=== PATIENT | male | born 1960 | race African-American/Black ===

== ENCOUNTER 2017-04-02 14:33 | Emergency (ER) | payer MEDICARE, MEDICAID | END 2017-04-02 17:34 | disposition home or self-care (01) | LOC: ERS 14:33 | DX: I10 Essential (primary) hypertension (principal); K21.9 Gastro-esophageal reflux disease without esophagitis; I95.1 Orthostatic hypotension; E11.9 Type 2 diabetes mellitus without complications; F32.9 Major depressive disorder, single episode, unspecified | CPT/HCPCS: 99284 ==

== ENCOUNTER 2017-05-07 16:35 | Observation (INO) | payer MEDICARE, MEDICAID ==
[~2017-05-07 16:35] MED LIST: ISOVUE-370 76%-LOCM 1 ML ONE; Iopamidol 370 76% 50 ML VIAL FS ONE
[2017-05-07 17:55] LABS: #Eosinphils 0.1 thou/uL (0.0-0.7); #Lymphocytes 1.6 thou/uL (1.20-3.40); #Monocytes 0.8 thou/uL (0.11-0.59); %Basophils 0.2 % (0.0-1.0); %Eosinophils 1.4 % (0.0-10.0); %Lymphocytes 29.1 % (21.0-51.0); %Monocytes 14.6 % (0.0-10.0); %Neutrophils 54.7 % (42.0-75.0); Hemoglobin 14.7 g/dL (14.0-18.0); Mean Corpuscular HGB CONC 34.1 g/dL (32.0-36.0); Mean Corpuscular Volume 90.9 fl (80.0-94.0); Mean Platelet Volume 6.7 fL (7.4-10.4); Platelet Count 201 thou/uL (130-400); RBC Distribution Width 12.4 % (11.5-14.5); Red Blood Cell (RBC) Count 4.75 mill/uL (4.70-6.10); White Blood Cell (WBC) Count 5.5 thou/uL (4.8-10.8)
[2017-05-07 17:58] LABS: Bilirubin Negative (Negative); Blood, Urine Negative (Negative); Clarity CLOUDY (Clear); Glucose, Urine (Dipstick) Negative (Negative); Leukocyte Large (Negative); Nitrite Positive (Negative); Protein, Urine (Dipstick) 30 mg/dL (Neg-Trace); Specific Gravity, Urine 1.017 (1.002-1.036)
[2017-05-07 18:03] LABS: Bacteria/HPF 4+ HPF (None Seen); Hyaline Casts/LPF 7-10 HYALINE CAST LPF (0-3 Hyaline); Pathc Cast-AUWi Flag 0.69 (0-2.49); RBC/HPF None Seen HPF (0-3); Squamous Epithelial None Seen HPF (0-3)
[2017-05-07 18:04] LABS: Yeast-AUWi Flag 82.6 (0-25.0)
[2017-05-07 18:13] LABS: Crystals/HPF None Seen HPF (Negative); Yeast-All Forms None Seen HPF (None Seen)
[2017-05-07 18:16] LABS: ALT (SGPT) 36 U/L (8-55); AST (SGOT) 34 U/L (5-34); Albumin 3.7 g/dL (3.5-5.0); Alkaline Phosphatase 42 U/L (40-150); Anion Gap 16 mmol/L (10-20); BUN (Urea Nitrogen) 25 mg/dL (8.4-25.7); Bilirubin, Total 0.7 mg/dL (0.2-1.2); Calc. Creatinine Clearance 0 mL/min (70-130); Calcium 9.4 mg/dL (7.8-10.44); Carbon Dioxide 17 mmol/L (22-29); Chloride 104 mmol/L (98-107); Estimated GFR-MDRD 64; Globulin 4.5 g/dL (2.4-3.5); Lipase 28 U/L (8-78); Protein, Total 8.2 g/dL (6.0-8.3); Sodium 133 mmol/L (136-145)
[2017-05-07 18:21] LABS: Glucose 59 mg/dL (70-105)
[2017-05-07] MEDS ORDERED: Dextrose 50% Abboject 50 ML SYRINGE ONE ×2 (18:33→18:34)
--- NOTE | 2017-05-07 19:04 | CT ---
CT ABDOMEN AND PELVIS WITH IV CONTRAST 05/07/17 HISTORY: Abdominal pain. COMPARISON: 02/06/16. FINDINGS: Atelectasis is present at the lung bases. Multiple heterogeneous low density nodules are now evident throughout the nonenlarged spleen. Small cysts are present within the kidneys. Enlarged lymph nodes w ithin the upper posterior abdomen are primarily retrocrural. They have enlarged slightly, now measuri ng up to 1.8 cm. Suprapubic catheter decompresses the urinary bladder. Colon is distended with gas an d stool up to 10.5 cm transverse diameter. Chronic destructive changes of the hips are stable. IMPRESSION: 1. Fecal impaction. 2. Given the slight enlargement of the retrocrural lymph nodes and the appearance of heterogeneo us low density lesions within the spleen, lymphomatous neoplasm must be considered. Please consider H em/Onc evaluation. POS: [facility]
[2017-05-07] MEDS ORDERED: Ondansetron ODT 4 MG TAB PO PRN (22:57)
[2017-05-07] MEDS ORDERED: hydrALAZINE 20 MG/ML VIAL SLOW IVP PRN (22:57)
[2017-05-07] MEDS ORDERED: Bisacodyl 10 MG SUPP PR PRN (22:57)
[2017-05-07] MEDS ORDERED: Senokot 8.6 MG TAB PO PRN (22:57)
[2017-05-07] MEDS ORDERED: Acetaminophen 500 MG TAB PO PRN (22:57)
[2017-05-07] MEDS ORDERED: cloNIDine 0.1 MG TAB PO PRN (22:57)
[2017-05-07] MEDS ORDERED: Ondansetron HCl/PF 4 MG/2 ML Vial IVP PRN (22:57)
[2017-05-07] MEDS ORDERED: Magnesium Citrate 300 ML BOT PO SCH (23:00)
[2017-05-07] MEDS ORDERED: HumaLOG 300 UNITS/3 ML VIAL SC PRN ×2 (23:41)
[2017-05-07] MEDS ORDERED: Dextrose 5% in Water 1,000 ML IV PRN (23:41)
[2017-05-07] MEDS ORDERED: Dextrose 50% Abboject 50 ML SYRINGE SLOW IVP PRN (23:41)
[2017-05-07] MEDS: Sodium Chloride 0.9% 1,000 ML IV SCH (23:52)
[2017-05-07] MEDS ORDERED: cefTRIAXone\\ROCEPHIN 2 GM in Sodium Chloride 0.9% 100 ML IVPB SCH (23:59)
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
[2017-05-08 03:30] VITALS: BMI 21.4
[2017-05-08] MEDS ORDERED: Docusate 100 MG CAP PO SCH (09:00)
[2017-05-08] MEDS ORDERED: Famotidine 20 MG TAB PO SCH (09:00)
[2017-05-08] MEDS: Sodium Chloride 0.9% 1,000 ML IV SCH (09:21)
--- NOTE | 2017-05-08 13:02 | PDOC.PN ---
- Subjective Encounter Start Date: 05/08/17 Encounter Start Time: 13:00 Mr. Del Toro says he is less bloated today. He is reported to have had 2 large bowel movements early this morning. He now complains of cough and congestion which started this morning. - Objective Resuscitation Status: Resuscitation Status FULL:Full Resuscitation MAR Reviewed: Yes Vital Signs & Weight: Vital Signs (12 hours) Temp Pulse Resp BP Pulse Ox 05/08/17 11:59 98.1 F 88 18 125/82 100 05/08/17 07:52 97.8 F 87 18 05/08/17 07:34 97.8 F 87 18 111/76 91 L 05/08/17 04:00 98.5 F 77 18 99/65 99 Weight Weight 157 lb 13.616 oz I&O: 05/07/17 05/08/17 05/09/17 06:59 06:59 06:59 Intake Total 1261 Output Total 300 Balance 961 Result Diagrams: 05/07/17 17:45 05/07/17 17:45 Additional Labs: Accuchecks 05/08/17 05/08/17 05/08/17 11:19 04:41 02:13 POC Glucose 101 71 79 05/08/17 05/08/17 01:01 00:09 POC Glucose 73 66 L Phys Exam - Physical Examination HEENT: PERRLA Respiratory: no wheezing + rhonchi bilaterally Cardiovascular: RRR, no significant murmur, no rub Gastrointestinal: soft, non-tender, positive bowel sounds mildly distended Musculoskeletal: no edema Dx/Plan (1) Constipation Code(s): K59.00 - CONSTIPATION, UNSPECIFIED Status: Acute (2) Chronic incomplete flaccid quadriplegia Code(s): G82.50 - QUADRIPLEGIA, UNSPECIFIED Status: Acute (3) UTI (lower urinary tract infection) Code(s): N39.0 - URINARY TRACT INFECTION, SITE NOT SPECIFIED Status: Acute (4) Diet-controlled diabetes mellitus Code(s): E11.9 - TYPE 2 DIABETES MELLITUS WITHOUT COMPLICATIONS Status: Chronic (5) Orthostatic hypotension Code(s): I95.1 - ORTHOSTATIC HYPOTENSION Status: Chronic - Plan * Constipation- improved, will continue a stool softener daily, and consider Miralax daily as well upon discharge * Chest Congestion- this may be due to poor control of secretion from his quadraplegia- the phlem is clear- will add mucinex, and suction as needed * DM-blood glucose is stable * UTI- this may be due to colonization from chronic indwelling meza. He does not have fever, and the urine is clear, and without sediment * He likely can be discharged back to the custodial later this evening.
[2017-05-08] MEDS ORDERED: guaiFENesin/DM ER PO SCH ×2 (13:15→21:00)
[2017-05-08] MEDS ORDERED: Polyethylene Glycol 3350 17 GM Packet PO SCH (13:15)
[2017-05-08 14:24] LABS: Hemoglobin 13.4 g/dL (14.0-18.0); Mean Corpuscular HGB CONC 33.3 g/dL (32.0-36.0); Mean Corpuscular Hemoglobin 29.9 pg (27.0-31.0); Mean Corpuscular Volume 89.9 fl (80.0-94.0); Mean Platelet Volume 7.1 fL (7.4-10.4); Platelet Count 147 thou/uL (130-400); RBC Distribution Width 12.4 % (11.5-14.5); Red Blood Cell (RBC) Count 4.48 mill/uL (4.70-6.10)
[2017-05-08 14:47] LABS: ALT (SGPT) 36 U/L (8-55); AST (SGOT) 33 U/L (5-34); Albumin 3.5 g/dL (3.5-5.0); Alkaline Phosphatase 38 U/L (40-150); Anion Gap 15 mmol/L (10-20); BUN (Urea Nitrogen) 22 mg/dL (8.4-25.7); Bilirubin, Total 0.5 mg/dL (0.2-1.2); Calc. Creatinine Clearance 80 mL/min (70-130); Calcium 8.8 mg/dL (7.8-10.44); Carbon Dioxide 16 mmol/L (22-29); Chloride 106 mmol/L (98-107); Estimated GFR-MDRD 87; Globulin 4.1 g/dL (2.4-3.5); Glucose 75 mg/dL (70-105); Protein, Total 7.6 g/dL (6.0-8.3); Sodium 133 mmol/L (136-145)
[2017-05-08 14:51] LABS: Lymphocytes 13 % (21-51); MDiff Complete? YES; Monocytes 6 % (0-10); Neutrophil 81 % (42-75); PLT Morphology Comment Appears Adequate
[2017-05-08 16:40] VITALS: BP 107/78; TEMP 98.3
--- NOTE | 2017-05-08 23:32 | DIS ---
DATE OF ADMISSION: 05/07/2017 DATE OF DISCHARGE: 05/08/2017 PRIMARY CARE PHYSICIAN: Amirah Forbes MD DISCHARGE DISPOSITION: Back to the [facility]. DISCHARGE DIAGNOSES: 1. Fecal impaction. 2. Constipation secondary to #1. 3. Quadriplegia with chronic bedbound status. 4. Neurogenic bladder with chronic suprapubic catheter. 5. Neurogenic bowel. 6. Diabetes mellitus type 2, which is diet managed. 7. History of orthostatic hypotension. 8. Seizure disorder. 9. Gastroesophageal reflux disease. PAST SURGICAL HISTORY: He has had C-spine fusion for stabilization and also has had a colonoscopy. DISCHARGE MEDICATIONS: MiraLax 17 grams daily was added to his regimen. He is to continue simethico ne 80 mg twice a day as needed, senna plus 1 tablet twice a day, scopolamine patch every 3 days, Marquita Lax 17 grams daily, phenytoin 100 mg twice a day, Zofran 4 mg q.6 hours as needed, multivitamin once a day, ProAmatine 5 mg twice a day, lactulose 30 grams twice a day as needed, DuoNeb q.4 hours as nee ded, Mucinex DM one tablet twice a day, Colace 100 mg twice daily, bisacodyl 10 mg per rectum twice a day as needed, baclofen 5 mg t.i.d., artificial tears p.r.n., and Tylenol 325 mg q.4 as needed. PROCEDURES DONE DURING ADMISSION: The patient had a CT scan of the abdomen and pelvis and the result s demonstrated a fecal impaction. There was some slight enlargement of the retrocrural lymph nodes, given the appearance of heterogeneous low density lesions in the spleen. CODE STATUS: FULL CODE. ALLERGIES: No known drug allergies. HOSPITAL COURSE: Mr. Del Toro is a pleasant 56-year-old gentleman who was sent over from the nursing [facility] due to not having a bowel movement in over 7 days. He was placed in observation and he was given medications to symptomatically relieve the obstipation. This was successful after being given mag c itrate as well as stool softeners and MiraLax. He was noted to have positive nitrites and bacteria i n his urine, but he does have a suprapubic catheter. There was no elevation in his white blood cell count nor was there any fever. The urine was clear and free of sediment and I suspect this is possib le colonization and will hold off on treatment at this time. Also was noted on the CT scan that ther e was some nonspecific retrocrural adenopathy. In reviewing previous CAT scans and his electronic re cords, it appears that this finding has been present and unchanged since 2013. Therefore, we will co flor to monitor this. The patient is being transitioned back to the [facility] today.
[2017-05-09] MEDS ORDERED: Polyethylene Glycol 3350 17 GM Packet PO SCH (09:00)
== END 2017-05-08 17:39 ==
LOC: ERS 16:35 → T4-A 22:11
PROVIDERS: ADMIT Internal Medicine; ATTEND Internal Medicine
DX: K56.41 Fecal impaction (principal); G82.50 Quadriplegia, unspecified; N31.2 Flaccid neuropathic bladder, not elsewhere classified; E11.9 Type 2 diabetes mellitus without complications; I95.1 Orthostatic hypotension; N39.0 Urinary tract infection, site not specified; G40.909 Epilepsy, unspecified, not intractable, without status epilepticus; K21.9 Gastro-esophageal reflux disease without esophagitis; Z98.1 Arthrodesis status; Z98.890 Other specified postprocedural states
CPT/HCPCS: 74177; 80053 ×2; 82962 ×2; 83690; 85007; 85025; 85027; 96361 ×2; 96365; 96375; 99285; G0378; 36415; 36416; 81003; 81015; 96374; J0696; J7050

== ENCOUNTER 2017-09-11 00:55 | Inpatient (IN) | payer MEDICARE, MEDICAID ==
[2017-09-11 02:26] LABS: Bilirubin Negative (Negative); Blood, Urine Trace (Negative); Glucose, Urine (Dipstick) Negative (Negative); Leukocyte Large (Negative); Nitrite Negative (Negative); Protein, Urine (Dipstick) 100 mg/dL (Neg-Trace); pH, Urine 8.5 (5.0-9.0)
[2017-09-11 02:28] LABS: Bacteria/HPF 4+ HPF (None Seen); Clarity Cloudy (Clear)
[2017-09-11 02:29] LABS: Pathc Cast-AUWi Flag 30.41 (0-2.49); Yeast-AUWi Flag 540.4 (0-25.0)
[2017-09-11 02:30] LABS: Hyaline Casts/LPF 0-3 HYALINE CAST LPF (0-3 Hyaline); Manual Microscopic Reviewed? No Path Casts Seen; Yeast-All Forms None Seen HPF (None Seen)
[2017-09-11 02:34] LABS: Crystals/HPF 3+ TRIPLE PHOS HPF (Negative)
[2017-09-11 03:02] LABS: Hemoglobin 13.8 g/dL (14.0-18.0); Mean Corpuscular HGB CONC 34.5 g/dL (32.0-36.0); Mean Corpuscular Hemoglobin 31.3 pg (27.0-31.0); Mean Corpuscular Volume 90.7 fL (78.0-98.0); RBC Distribution Width 12.8 % (11.5-14.5); Red Blood Cell (RBC) Count 4.42 mill/uL (4.70-6.10)
[2017-09-11 03:20] LABS: Band 7 % (5-11); Eosinophils 4 % (0-10); Lymphocytes 24 % (21-51); MDiff Complete? YES; Mean Platelet Volume 7.2 fL (7.4-10.4); Monocytes 13 % (0-10); Neutrophil 52 % (42-75); PLT Morphology Comment Appears Decreased; Platelet Count 107 thou/uL (130-400)
[2017-09-11 03:22] LABS: ALT (SGPT) 56 U/L (8-55); AST (SGOT) 35 U/L (5-34); Albumin 3.8 g/dL (3.5-5.0); Alkaline Phosphatase 49 U/L (40-150); Anion Gap 13 mmol/L (10-20); BUN (Urea Nitrogen) 22 mg/dL (8.4-25.7); Bilirubin, Total 0.6 mg/dL (0.2-1.2); CK (CPK) 172 U/L (30-200); Calc. Creatinine Clearance 0 mL/min (70-130); Calcium 9.7 mg/dL (7.8-10.44); Carbon Dioxide 26 mmol/L (22-29); Chloride 103 mmol/L (98-107); Estimated GFR-MDRD Greater than 90; Globulin 4.2 g/dL (2.4-3.5); Glucose 89 mg/dL (70-105); Lipase 20 U/L (8-78); Potassium 3.6 mmol/L (3.5-5.1); Sodium 138 mmol/L (136-145)
[2017-09-11 03:24] LABS: CKMB 3.8 ng/mL (0-6.6); Troponin I 0.013 ng/mL (< 0.028)
[2017-09-11] MEDS ORDERED: Ondansetron HCl/PF 4 MG/2 ML Vial IVP PRN (04:49)
[2017-09-11] MEDS ORDERED: Artificial Tears 18 DROP/0.9 ML EA EYE PRN (04:52)
[2017-09-11] MEDS ORDERED: Simethicone Chewable 80 MG TAB PO PRN (04:52)
[2017-09-11] MEDS ORDERED: Acetaminophen 325 MG TAB PO PRN (04:52)
[2017-09-11] MEDS ORDERED: Norepinephrine 8 MG/0.9% NS 250 ML ONE (05:38)
[2017-09-11] MEDS ORDERED: Ondansetron ODT 4 MG TAB PO PRN (08:01)
[2017-09-11] MEDS ORDERED: Famotidine/PF 20 mg/2ml Vial SLOW IVP PRN (08:01)
[2017-09-11] MEDS ORDERED: Bisacodyl 10 MG SUPP PR PRN (08:01)
[2017-09-11] MEDS ORDERED: Sodium Chloride 0.65% Nasal 44 ML BOT EA NARE PRN (08:01)
[2017-09-11] MEDS ORDERED: Eucerin (Mineral Oil/Petrolatum,White) 30 gm Jar TOP PRN (08:01)
[2017-09-11] MEDS ORDERED: Mag-Al 1200 mg/1200 mg/30 ML UDCUP PO PRN (08:01)
[2017-09-11] MEDS ORDERED: Fleet Enema 133 ML BOT PR PRN (08:01)
[2017-09-11] MEDS ORDERED: Chloraseptic Spray 180 ml Bottle PO PRN (08:01)
[2017-09-11] MEDS ORDERED: Milk Of Magnesia 30 ML UDCUP PO PRN (08:01)
[2017-09-11] MEDS ORDERED: Diabetic Tussin 200 MG/10 ML UDCUP PO PRN (08:01)
--- NOTE | 2017-09-11 08:32 | CT ---
CT ARTERIOGRAM CHEST WITH IV CONTRAST AND 3D MIP IMAGING: HISTORY: Dyspnea. Hypoxia. FINDINGS: There is good contrast opacification of the pulmonary arteries and thoracic aorta with normal branchi ng of the great vessels. There are innumerable ill-defined nodular opacities throughout each lung pr imarily involving the upper lobes, each less than 1 cm greatest diameter. Many have a subtle low-den sity/gaseous centered. Lymph nodes scattered about the mediastinum are upper limits of normal in siz e. Enlarged retrocrural lymph nodes and low-density lesions within the spleen are partially visualiz ed on the inferiormost images and appear similar to the CT abdomen from 05/08/15. IMPRESSION: 1. No CT evidence of pulmonary embolus. 2. Multiple small ill-defined lesions throughout each lung. Based on their appearance, infection wi th septic emboli versus metastases are the primary considerations. The adenopathy and splenic lesion s within the partially visualized upper abdomen appear unchanged from recent CT and result in the haile e differential diagnosis. POS: [facility]
--- NOTE | 2017-09-11 08:49 | RAD ---
PORTABLE CHEST 1 VIEW: HISTORY: Respiratory distress. COMPARISON: Chest radiograph same day. FINDINGS: There are some faint upper lobe peripheral airspace opacities. Cardiac silhouette and mediastinal co ntours are within normal limits. No acute osseous abnormality. IMPRESSION: Upper lobe opacity concern for possible infection. Followup recommended. POS: [facility]
[2017-09-11] MEDS ORDERED: Bisacodyl 10 MG SUPP PR SCH (09:00)
[2017-09-11] MEDS ORDERED: guaiFENesin ER 600 MG TAB PO SCH (09:00)
[2017-09-11] MEDS: Polyethylene Glycol 3350 17 GM Packet PO SCH (09:13)
[2017-09-11] MEDS: Baclofen 10 MG TAB PO SCH ×3 (09:13→21:33)
[2017-09-11] MEDS: Enoxaparin Sodium 40 MG/0.4 ML SYRINGE SC SCH (09:13)
[2017-09-11] MEDS: Saccharomyces boulardii 250 MG CAP PO SCH (09:14)
[2017-09-11] MEDS: guaiFENesin ER 600 MG TAB PO SCH ×2 (09:14→21:42)
[2017-09-11] MEDS: MEROPENEM 1 GM/50 ML 1 GM in Premix Bag 1 BAG IVPB SCH ×2 (09:14→17:41)
[2017-09-11] MEDS: Scopolamine 1.5 mg/72 hour Patch TOP SCH (09:42)
[2017-09-11] MEDS: Phenytoin 50 MG Chewable Tablet PO SCH ×2 (09:44→21:42)
[2017-09-11] MEDS: Midodrine HCl 5 MG TAB PO SCH ×2 (09:45→21:34)
[2017-09-11] MEDS ORDERED: ISOVUE-370 76%-LOCM 1 ML ONE (12:08)
[2017-09-11] MEDS: Vancomycin HCl 1.5 GM in Sodium Chloride 0.9% 250 ML 300 ML IVPB SCH (13:01)
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
[2017-09-11] MEDS ORDERED: Sodium Chloride 0.9% 1,000 ML IV SCH (13:30)
[2017-09-11] MEDS ORDERED: Meropenem 1 GM in Sodium Chloride 0.9% 100 ML IVPB SCH (14:00)
--- NOTE | 2017-09-11 19:26 | CON ---
DATE OF CONSULTATION: 09/11/2017 Mr. Del Toro is an unfortunate 56-year-old male, who is quadriplegic. According to the emergency department notes, he presented with shortness of breath of 3 days' duratio n. Chest radiograph showed no clear infiltrates. CT pulmonary angiogram showed multiple small nodules, but no infiltrates, no embolic disease was identified. PAST MEDICAL HISTORY: Remarkable for, 1. Neurogenic bladder with a suprapubic catheter. 2. History of admissions for severe constipation with impaction. 3. History of diabetes. 4. Orthostatic hypotension. 5. History of reflux. 6. History of seizure disorder. 7. History of cervical spine surgery. 8. History of PEG placement. 9. History of tracheostomy, subsequent removal. SOCIAL HISTORY: He is a nonsmoker, nondrinker. ALLERGIES: No drug allergies. REVIEW OF SYSTEMS: Otherwise negative. He says he is feeling a little better. He is on a low-dose Levophed. PHYSICAL EXAMINATION: VITAL SIGNS: Blood pressure 101/66, heart rate 73, respiratory rate 21, oximetry is 100% on nasal ca nnula 3 liters. HEENT: Pupils reactive. Sclerae anicteric. EXTREMITIES: He has 4 extremity muscle wasting as expected. LUNGS: Remarkable for mild rhonchi bilaterally. HEART: Regular rhythm. ABDOMEN: Soft and distended. LABORATORY DATA: White count 4, hemoglobin 13.8, platelets 107,000. Sodium 138, potassium 3.6, chlo ride 103, bicarbonate 26, BUN 22, creatinine 0.8. D-dimer was elevated, so CT angiogram was done, di d not show any evidence of thromboembolic disease. IMPRESSION: 1. Bronchitis and retained secretions. 2. Deconditioning and muscle weakness. 3. Intravascular volume contraction. Microbiology has been reviewed. No positive blood cultures so far. He has a suprapubic catheter and it is told it is not working. His bladder was scanned when I saw barrett salazar and he had 350 mL of urine in his bladder. So, he probably needs more volume. I have ordered anot her liter of saline. Hopefully, we can deescalate antimicrobial therapy quickly. I would order a chest radiograph in the morning. Wait for his blood cultures to come back before simplifying antibiotics. He appears to be medically stable at this time. Critical care time, 30 minutes.
--- NOTE | 2017-09-11 19:37 | CON ---
DATE OF CONSULTATION: 09/11/2017 CONSULTING PHYSICIAN: Dr. Perez. CONSULTED PHYSICIAN: Cholo Curtis M.D. REASON FOR CONSULTATION: Urinary retention with clogged SP tube. HISTORY OF PRESENT ILLNESS: Mr. Del Toro is a 56-year-old black male with C2-C3 quadriplegia who is cu rrently admitted to the hospital for pneumonia. He came in with sepsis and is currently getting sign ificantly better. He has an SP tube which was placed years ago at the time of his original injury. He does not appear to have a urologist currently, but states he used to have a urologist in the past, but does not know what happened to them. He has had the SP tube in place for a long time and has it currently managed by his primary care physician overseeing [facility] where he resides. He cu rrently uses an 18-[place] SP tube and it is changed once a month. After being admitted to the hospit al here, it was noted that he had poor urine output from his SP tube. A bladder scan was performed w hich demonstrated 400 mL within the bladder. The patient was reporting a vague discomfort in the abd omen which apparently he still has some sensation to his internal organs. Attempts by the nursing st aff to flush the catheter were unsuccessful. Therefore, I have been consulted for assistance in haney ging the suprapubic catheter. ALLERGIES: None. HOME MEDICATIONS: Midodrine 10 mg p.o. t.i.d., baclofen 10 mg p.o. b.i.d., Keppra 500 mg p.o. b.i.d. and simethicone 1 tab p.o. daily. PAST MEDICAL HISTORY: 1. C2-C3 quadriplegia with bedbound status. 2. Neurogenic bladder with SP tube. 3. Muscular atrophy. 4. Neurogenic bowel. 5. Type 2 diabetes. 6. Chronic constipation. 7. Orthostatic hypotension. 8. Gastroesophageal reflux disease. 9. Seizure disorder. PAST SURGICAL HISTORY: 1. C-spine stabilization surgery. 2. Colonoscopy. 3. PEG tube placement. 4. Tracheostomy. FAMILY HISTORY: Noncontributory. SOCIAL HISTORY: The patient is . He has family members living in [place]. He currently lives in [facility]. He denies tobacco abuse, illicit drug use or alcohol abuse. He is able to actually get around in an electric wheelchair which he does have some manual dexterity to control. REVIEW OF SYSTEMS: A 12-point review of systems was reviewed and otherwise unremarkable other than a chronic cough which is lingering after his pneumonia treatment. PHYSICAL EXAMINATION: VITAL SIGNS: There are no current recorded temperatures for the patient's heart rate 106, respiratio ns 19, oxygen saturation 100%, blood pressure 101/66. GENERAL: Appears slightly uncomfortable, but otherwise communicative and alert. Answers questions a ppropriately. CARDIOVASCULAR: Sinus tachycardia, normal S1 and S2. CHEST: No increased work of breathing. ABDOMEN: Protuberant. Significant suprapubic distention, mild vague discomfort with palpation. Pos itive bowel sounds. There is an SP tube with keloid hypertrophic tissue around the SP tube entry sit e. There is no urine within the catheter. It is currently an 18-[place] catheter. There is no urine in the drainage bag. EXTREMITIES: Demonstrate significant atrophy. GENITOURINARY: The patient is uncircumcised with a nonfocal penis. Testes are bilaterally descended . JACQUI was deferred. PROCEDURE: The patient's 18-[place] SP tube was removed. Immediately upon removal, urine began flowi ng out from the entry site. Betadine was used to prep the skin around the entry site and using steri le technique, a new 20-[place] Vergara catheter was inserted into the bladder with 10 mL of sterile wate r into the balloon. Approximately estimated 250 mL were lost on the bed in approximately an addition al 250 mL came out from the catheter into the drainage bag. The patient tolerated the procedure well . His catheter was secured with a StatLock. ASSESSMENT AND PLAN: A 56-year-old black male with quadriplegia with neurogenic bladder and urinary retention with likely a clogged catheter probably due to either sediment buildup calcification or muc us plug. In any case, his catheter has been changed to a larger size which will decrease the likelih ood of subsequent obstruction. Normally we would perform antibiotic prophylaxis due to significant u rinary retention, but he is already on antibiotics for his pneumonia; therefore, this can just be con tinued. I would recommend that he follow up with me since he does not have a urologist and I will pl an for monitoring his SP tube for problems and issues as well as monitoring for urinary tract infecti ons. He should continue to get his SP tube changed with a 20 [place] Vergara catheter every 30 days and I will plan to see him back in the office in around 2-3 months to ensure that he is doing okay with this new regimen.
[2017-09-11] MEDS: Acetaminophen 325 MG TAB PO PRN (21:35)
[2017-09-12] MEDS: MEROPENEM 1 GM/50 ML 1 GM in Premix Bag 1 BAG IVPB SCH ×3 (00:11→15:57)
[2017-09-12] MEDS: Vancomycin HCl 1.5 GM in Sodium Chloride 0.9% 250 ML 300 ML IVPB SCH (01:11)
[2017-09-12] MEDS: Norepinephrine 8 MG/250 ML BAG IVPB PRN ×2 (02:44→23:46)
[2017-09-12 06:38] LABS: Anion Gap 12 mmol/L (10-20); BUN (Urea Nitrogen) 24 mg/dL (8.4-25.7); Calc. Creatinine Clearance 82 mL/min (70-130); Carbon Dioxide 21 mmol/L (22-29); Chloride 107 mmol/L (98-107); Estimated GFR-MDRD 84; Glucose 136 mg/dL (70-105); Potassium 3.9 mmol/L (3.5-5.1); Sodium 136 mmol/L (136-145)
[2017-09-12 06:52] LABS: #Eosinphils 0.1 thou/uL (0.0-0.7); #Lymphocytes 1.2 thou/uL (1.20-3.40); #Neutrophils 6.2 thou/uL (1.40-6.50); %Basophils 0.3 % (0.0-1.0); %Eosinophils 1.1 % (0.0-10.0); %Lymphocytes 14.2 % (21.0-51.0); %Monocytes 12.2 % (0.0-10.0); %Neutrophils 72.2 % (42.0-75.0); Hemoglobin 10.6 g/dL (14.0-18.0); Mean Corpuscular Hemoglobin 31.5 pg (27.0-31.0); Mean Corpuscular Volume 90.1 fL (78.0-98.0); Mean Platelet Volume 7.3 fL (7.4-10.4); Platelet Count 151 thou/uL (130-400); Red Blood Cell (RBC) Count 3.36 mill/uL (4.70-6.10); White Blood Cell (WBC) Count 8.5 thou/uL (4.8-10.8)
[2017-09-12] MEDS: Saccharomyces boulardii 250 MG CAP PO SCH (09:21)
[2017-09-12] MEDS: Polyethylene Glycol 3350 17 GM Packet PO SCH (09:21)
[2017-09-12] MEDS: Baclofen 10 MG TAB PO SCH ×3 (09:21→21:37)
[2017-09-12] MEDS: Midodrine HCl 5 MG TAB PO SCH ×2 (09:21→21:38)
[2017-09-12] MEDS: Acetaminophen 325 MG TAB PO PRN ×3 (09:22→23:20)
[2017-09-12] MEDS: Enoxaparin Sodium 40 MG/0.4 ML SYRINGE SC SCH (09:24)
[2017-09-12] MEDS: guaiFENesin ER 600 MG TAB PO SCH ×2 (09:24→21:37)
[2017-09-12] MEDS: Phenytoin 50 MG Chewable Tablet PO SCH ×2 (09:25→21:38)
[2017-09-12] MEDS ORDERED: Albumin 25% 25 GM/100 ML BOT IVPB SCH (11:00)
--- NOTE | 2017-09-12 11:50 | EKG ---
Test Reason : DIFF BREATHING Blood Pressure : / mmHG Vent. Rate : 087 BPM Atrial Rate : 087 BPM P-R Int : 152 ms QRS Dur : 078 ms QT Int : 386 ms P-R-T Axes : 071 068 067 degrees QTc Int : 464 ms Normal sinus rhythm Possible Left atrial enlargement Left ventricular hypertrophy ST elevation, consider early repolarization, pericarditis, or injury Abnormal ECG Confirmed by SAVANNAH PATEL, RYAN ([id number]), market editor LIANA TREVIZO ([id number]) on 09/12/2017 11:50:17 AM Referred By: Confirmed By:RYAN NUÑEZ MD
--- NOTE | 2017-09-12 12:25 | PDOC.PN ---
- Subjective Encounter Start Date: 09/12/17 Encounter Start Time: 09:15 -: old records requested/rev Patient seen and examined, pt is still on levophed, No overnight events - Objective MAR Reviewed: Yes Vital Signs & Weight: Vital Signs (12 hours) Temp Pulse Resp Pulse Ox 09/12/17 10:52 100 09/12/17 10:49 107 H 20 100 09/12/17 03:00 98.2 F 09/12/17 02:41 110 H 19 97 Weight Admit Weight 164 lb 3.91 oz Weight 165 lb 12.602 oz Most Recent Monitor Data Heart Rate from ECG 100 NIBP 106/76 NIBP BP-Mean 84 Respiration from ECG 19 SpO2 100 I&O: 09/11/17 09/12/17 09/13/17 06:59 06:59 06:59 Intake Total 1585 Output Total 1405 Balance 180 Result Diagrams: 09/12/17 05:52 09/12/17 05:52 EKG Reviewed by me: Yes (nsr) Phys Exam - Physical Examination Constitutional: NAD HEENT: PERRLA, moist MMs, sclera anicteric Neck: no JVD, supple Respiratory: no wheezing, no rales, no rhonchi Cardiovascular: RRR, no significant murmur, no rub Gastrointestinal: soft, non-tender, no distention, positive bowel sounds suprapubic catheter+ Musculoskeletal: no edema, pulses present contracture quadriplegia Lymphatic: no nodes Psychiatric: normal affect Skin: no rash, normal turgor Dx/Plan (1) Septic shock Code(s): A41.9 - SEPSIS, UNSPECIFIED ORGANISM; R65.21 - SEVERE SEPSIS WITH SEPTIC SHOCK Status: Acute (2) FPC-acquired pneumonia Code(s): J18.9 - PNEUMONIA, UNSPECIFIED ORGANISM Status: Acute (3) Cystostomy malfunction Code(s): N99.512 - CYSTOSTOMY MALFUNCTION Status: Acute (4) Pancytopenia Code(s): D61.818 - OTHER PANCYTOPENIA Status: Acute (5) Transaminitis Code(s): R74.0 - NONSPEC ELEV OF LEVELS OF TRANSAMNS & LACTIC ACID DEHYDRGNSE Status: Acute (6) GERD (gastroesophageal reflux disease) Code(s): K21.9 - GASTRO-ESOPHAGEAL REFLUX DISEASE WITHOUT ESOPHAGITIS Status: Chronic (7) Neurogenic bladder Code(s): N31.9 - NEUROMUSCULAR DYSFUNCTION OF BLADDER, UNSPECIFIED Status: Chronic (8) Quadriplegia Code(s): G82.50 - QUADRIPLEGIA, UNSPECIFIED Status: Chronic (9) Seizure disorder Code(s): G40.909 - EPILEPSY, UNSP, NOT INTRACTABLE, WITHOUT STATUS EPILEPTICUS Status: Chronic - Plan cont current plan of care, continue antibiotics * continue levophed as tolerated and try wean * continue meropenam and vancomycin empirically * will give one dose of albumin * continue ivf * follow culture * urology, pulmonary recommendation appreciated * will add miralax and lactulose for constipation * medication reviewed as below * symptomatic treatment. * echo done today Review of Systems - Review of Systems Eyes: negative: Pain, Vision Change, Conjunctivae Inflammation, Eyelid Inflammation, Redness, Other ENT: negative: Ear Pain, Ear Discharge, Nose Pain, Nose Discharge, Nose Congestion, Mouth Pain, Mouth Swelling, Throat Pain, Throat Swelling, Other Respiratory: negative: Cough, Dry, Shortness of Breath, Hemoptysis, SOB with Excertion, Pleuritic Pain, Sputum, Wheezing Cardiovascular: negative: chest pain, palpitations, orthopnea, paroxysmal nocturnal dyspnea, edema, light headedness, other Gastrointestinal: negative: Nausea, Vomiting, Abdominal Pain, Diarrhea, Constipation, Melena, Hematochezia, Other Genitourinary: negative: Dysuria, Frequency, Incontinence, Hematuria, Retention , Other Musculoskeletal: negative: Neck Pain, Shoulder Pain, Arm Pain, Back Pain, Hand Pain, Leg Pain, Foot Pain, Other - Medications/Allergies Allergies/Adverse Reactions: Allergies Allergy/AdvReac Type Severity Reaction Status Date / Time No Known Allergies Allergy Verified 11/20/13 16:54 Medications: Current Medications Acetaminophen (Tylenol) 650 mg PO Q4H PRN PRN Reason: Headache/Fever or Pain(2-3) Last Admin: 09/12/17 09:22 Dose: 650 mg Acetaminophen (Tylenol) 325 mg PO Q4H PRN PRN Reason: PAIN(1)/FEVER Al Hydroxide/Mg Hydroxide (Maalox) 15 ml PO Q4H PRN PRN Reason: Heartburn or Indigestion Albumin Human (Albumin 25%) 25 gm IVPB NOW [facility]END[facility] TO [facility] Stop: 09/12/17 15:00 Last Admin: 09/12/17 11:33 Dose: 25 gm Albumin Human (Albumin 25%) 25 gm IVPB Q6HR [facility] Stop: 09/14/17 12:01 Albuterol/Ipratropium (Duoneb) 3 ml NEB Q4H PRN PRN Reason: SOB/WHEEZE Albuterol/Ipratropium (Duoneb) 3 ml NEB [id number] [facility] Last Admin: 09/12/17 10:49 Dose: 3 ml Artificial Tears (Tears Naturale) 1 - 2 drop EA EYE ASDIR PRN PRN Reason: Dry Eyes Baclofen (Lioresal) 5 mg PO TID [facility] Last Admin: 09/12/17 09:21 Dose: 5 mg Bisacodyl (Dulcolax) 10 mg [place] DAILYPRN PRN PRN Reason: Constipation Enoxaparin Sodium (Lovenox) 40 mg SC 0900 [facility] Last Admin: 09/12/17 09:24 Dose: 40 mg Famotidine (Pepcid) 20 mg SLOW IVP Q12HR PRN PRN Reason: Heartburn or Indigestion Guaifenesin (Robitussin Sf) 200 mg PO Q4H PRN PRN Reason: Cough Guaifenesin (Mucinex) 600 mg PO Q12HR [facility] Last Admin: 09/12/17 09:24 Dose: 600 mg Meropenem 1 gm/ Device 50 mls @ 100 mls/hr IVPB 0100,0900,1700 [facility] Last Admin: 09/12/17 09:20 Dose: 50 mls Vancomycin HCl 1.5 gm/ Sodium (Chloride) 300 mls @ 200 mls/hr IVPB 0200,1400 [facility] Last Admin: 09/12/17 01:11 Dose: 300 mls Norepinephrine Bitartrate (Levophed) 250 mls @ 0 mls/hr IVPB INF PRN; Protocol ; Titrate PRN Reason: Blood Pressure Last Admin: 09/12/17 02:44 Dose: 250 mls Lactulose (Lactulose) 20 gm PO DAILYPRN PRN PRN Reason: Constipation Magnesium Hydroxide (Milk Of Magnesium) 30 ml PO DAILYPRN PRN PRN Reason: Constipation Midodrine (Proamatine) 5 mg PO BID [facility] Last Admin: 09/12/17 09:21 Dose: 5 mg Mineral Oil/White Petrolatum (Eucerin Cream) 0 gm TOP BIDPRN PRN PRN Reason: Dry Skin Miscellaneous Medication (Pharmacy To Dose) 1 each IVPB PRN PRN PRN Reason: Pharmacy to dose Ondansetron HCl (Zofran) 4 mg IVP Q6H PRN PRN Reason: Nausea/Vomiting Last Admin: 09/11/17 20:16 Dose: 4 mg Ondansetron HCl (Zofran Odt) 4 mg PO Q6H PRN PRN Reason: Nausea/Vomiting Pantoprazole Sodium (Protonix) 40 mg PO DAILY [facility] Last Admin: 09/12/17 09:22 Dose: 40 mg Phenol (Chloraseptic [place] 180 Ml Bot) 0 ml PO PRN PRN PRN Reason: Sore Throat Phenytoin Sodium (Dilantin Chewable) 100 mg PO BID [facility] Last Admin: 09/12/17 09:25 Dose: Not Given Polyethylene Glycol (Miralax) 17 gm PO DAILY [facility] Last Admin: 09/12/17 09:21 Dose: 17 gm Saccharomyces Boulardii (Florastor) 250 mg PO DAILY [facility] Last Admin: 09/12/17 09:21 Dose: 250 mg Scopolamine (Transderm Scop) 1.5 mg TOP Q3D [facility] Last Admin: 09/11/17 09:42 Dose: 1.5 mg Simethicone (Mylicon Chewable) 80 mg PO BID PRN PRN Reason: Gas Pain Sodium Biphosphate/Sodium Phosphate (Fleet Enema) 133 ml [place] ONE PRN PRN Reason: Constipation Stop: 09/14/17 08:02 Sodium Chloride ([place] Nasal [place] 0.65%) 0 ml EA NARE QIDPRN PRN PRN Reason: Nasal Congestion Sodium Polystyrene Sulfonate (Kayexelate Oral Susp 15 Gm/60 Ml) 30 gm PO NOW [facility] Stop: 09/12/17 12:45 Last Admin: 09/12/17 11:33 Dose: 30 gm
[2017-09-12 13:22] LABS: Vancomycin, Trough 31.1 ug/mL
--- NOTE | 2017-09-12 15:17 | PRG ---
DATE OF SERVICE: 09/12/2017 SUBJECTIVE: Mr. Del Toro is still on pressors. OBJECTIVE: VITAL SIGNS: His heart rate is 97, respiratory rate is 20, oximetry is 100%, blood pressure 106/76. LUNGS: Clear. HEART: Regular rhythm. ABDOMEN: Soft and nontender, although he is quadriplegic, so the tenderness is not an issue, but he does not have any distention or rigidity. LABORATORY DATA: His white count is 8.5, hemoglobin 10.6, platelets 151,000. Sodium 136, potassium 3.9, chloride 107, bicarbonate 21, BUN 24, creatinine 1.1. He is declining to take Dilantin. He does not take Dilantin at the alf, so we will call the m and see if he does. IMPRESSION: Hypotension. Blood cultures are negative so far. Probably more likely his hypotension is intravascular volume depletion than anything. He did have a malfunctioning SP catheter and this w as changed out yesterday. I do not find a urine culture that is pending and I suspect he will have m ultiple organisms on the culture since this is a chronic indwelling SP catheter. We will continue to volume resuscitate him. We will try to find out whether or not he is really on his seizure medicine. 1. Quadriplegia. 2. Neurogenic bladder. 3. Diabetes. 4. History of seizure disorder. 5. Reflux disease. 6. History of cervical spine stabilization in the past. 7. History of a PEG and tracheostomy. PLAN: Continue supportive care. Received a liter of saline. Salt-poor albumin. He will remain in the Critical Care Unit at this time.
[2017-09-12] MEDS: Albumin 25% 25 GM/100 ML BOT IVPB SCH ×3 (15:58→23:21)
[2017-09-12] MEDS ORDERED: Sodium Chloride 0.9% 1,000 ML IV SCH (17:00)
[2017-09-13 01:32] LABS: Vancomycin, Random 18.6 ug/mL (See Comment)
[2017-09-13] MEDS: MEROPENEM 1 GM/50 ML 1 GM in Premix Bag 1 BAG IVPB SCH ×3 (01:53→17:44)
[2017-09-13] MEDS: Vancomycin HCl 1.5 GM in Sodium Chloride 0.9% 250 ML 300 ML IVPB SCH (02:46)
[2017-09-13] MEDS: Acetaminophen 325 MG TAB PO PRN (04:51)
[2017-09-13] MEDS: Albumin 25% 25 GM/100 ML BOT IVPB SCH ×3 (06:00→17:44)
[2017-09-13] MEDS ORDERED: Fleet Enema 133 ML BOT PR SCH (09:00)
--- NOTE | 2017-09-13 09:18 | PDOC.PN ---
- Subjective Encounter Start Date: 09/13/17 Encounter Start Time: 08:30 he is on low dose of levephed now, his abdomen is bloated, he feels constipated , does not have BM, no cough, no fever - Objective MAR Reviewed: Yes Vital Signs & Weight: Vital Signs (12 hours) Temp Pulse Resp Pulse Ox 09/13/17 09:16 100 09/13/17 09:15 91 21 H 09/13/17 04:00 99.5 F 09/13/17 02:17 109 H 26 H 100 09/12/17 23:20 101.8 F H 09/12/17 22:00 109 H 23 H 100 Weight Admit Weight 164 lb 3.91 oz Weight 168 lb 6.931 oz Most Recent Monitor Data Heart Rate from ECG 98 NIBP 100/66 NIBP BP-Mean 73 Respiration from ECG 20 SpO2 100 I&O: 09/12/17 09/13/17 09/14/17 06:59 06:59 06:59 Intake Total 1585 3979.5 Output Total 1405 2210 Balance 180 1769.5 Result Diagrams: 09/12/17 05:52 09/12/17 05:52 EKG Reviewed by me: Yes (sinus tachycardia) Phys Exam - Physical Examination Constitutional: NAD HEENT: PERRLA, moist MMs, sclera anicteric Neck: no nodes, no JVD, supple, full ROM Respiratory: no wheezing, no rales, no rhonchi anteriorly Cardiovascular: RRR, no significant murmur, no rub tachycardia Gastrointestinal: soft, positive bowel sounds distended, bloated, suparpubic catheter+ Musculoskeletal: no edema, pulses present quadriplegia, with contracture Lymphatic: no nodes Psychiatric: normal affect Skin: no rash, normal turgor Dx/Plan (1) Septic shock Code(s): A41.9 - SEPSIS, UNSPECIFIED ORGANISM; R65.21 - SEVERE SEPSIS WITH SEPTIC SHOCK Status: Acute (2) longterm-acquired pneumonia Code(s): J18.9 - PNEUMONIA, UNSPECIFIED ORGANISM Status: Acute (3) Cystostomy malfunction Code(s): N99.512 - CYSTOSTOMY MALFUNCTION Status: Resolved (4) Pancytopenia Code(s): D61.818 - OTHER PANCYTOPENIA Status: Acute Comment: due to sepsis (5) Transaminitis Code(s): R74.0 - NONSPEC ELEV OF LEVELS OF TRANSAMNS & LACTIC ACID DEHYDRGNSE Status: Acute Comment: due to sepsis (6) GERD (gastroesophageal reflux disease) Code(s): K21.9 - GASTRO-ESOPHAGEAL REFLUX DISEASE WITHOUT ESOPHAGITIS Status: Chronic (7) Neurogenic bladder Code(s): N31.9 - NEUROMUSCULAR DYSFUNCTION OF BLADDER, UNSPECIFIED Status: Chronic (8) Quadriplegia Code(s): G82.50 - QUADRIPLEGIA, UNSPECIFIED Status: Chronic (9) Seizure disorder Code(s): G40.909 - EPILEPSY, UNSP, NOT INTRACTABLE, WITHOUT STATUS EPILEPTICUS Status: Chronic (10) Chronic constipation Code(s): K59.09 - OTHER CONSTIPATION Status: Chronic (11) Abdominal distension (gaseous) Code(s): R14.0 - ABDOMINAL DISTENSION (GASEOUS) Status: Acute - Plan cont current plan of care, continue antibiotics * will give fleet enema for constipation * once levophed off, then will consider transfer to medical floor * continue empiric antibiotics with meropenam, and vancomycin * medication reviewed as below * symptomatic treatment. Review of Systems - Review of Systems Constitutional: negative: fever, chills, sweats, weakness, malaise, other Eyes: negative: Pain, Vision Change, Conjunctivae Inflammation, Eyelid Inflammation, Redness, Other ENT: negative: Ear Pain, Ear Discharge, Nose Pain, Nose Discharge, Nose Congestion, Mouth Pain, Mouth Swelling, Throat Pain, Throat Swelling, Other Respiratory: negative: Cough, Dry, Shortness of Breath, Hemoptysis, SOB with Excertion, Pleuritic Pain, Sputum, Wheezing Cardiovascular: negative: chest pain, palpitations, orthopnea, paroxysmal nocturnal dyspnea, edema, light headedness, other Gastrointestinal: Abdominal Pain, Constipation. negative: Nausea, Vomiting, Diarrhea, Melena, Hematochezia, Other Genitourinary: negative: Dysuria, Frequency, Incontinence, Hematuria, Retention , Other Musculoskeletal: negative: Neck Pain, Shoulder Pain, Arm Pain, Back Pain, Hand Pain, Leg Pain, Foot Pain, Other - Medications/Allergies Allergies/Adverse Reactions: Allergies Allergy/AdvReac Type Severity Reaction Status Date / Time No Known Allergies Allergy Verified 09/12/17 20:17 Medications: Current Medications Acetaminophen (Tylenol) 650 mg PO Q4H PRN PRN Reason: Headache/Fever or Pain(2-3) Last Admin: 09/13/17 04:51 Dose: 650 mg Acetaminophen (Tylenol) 325 mg PO Q4H PRN PRN Reason: PAIN(1)/FEVER Al Hydroxide/Mg Hydroxide (Maalox) 15 ml PO Q4H PRN PRN Reason: Heartburn or Indigestion Albumin Human (Albumin 25%) 25 gm IVPB Q6HR [facility] Stop: 09/14/17 12:01 Last Admin: 09/13/17 06:00 Dose: 25 gm Albuterol/Ipratropium (Duoneb) 3 ml NEB Q4H PRN PRN Reason: SOB/WHEEZE Albuterol/Ipratropium (Duoneb) 3 ml NEB [id number] [facility] Last Admin: 09/13/17 09:15 Dose: 3 ml Artificial Tears (Tears Naturale) 1 - 2 drop EA EYE ASDIR PRN PRN Reason: Dry Eyes Baclofen (Lioresal) 5 mg PO TID [facility] Last Admin: 09/12/17 21:37 Dose: 5 mg Bisacodyl (Dulcolax) 10 mg [place] DAILYPRN PRN PRN Reason: Constipation Enoxaparin Sodium (Lovenox) 40 mg SC 0900 [facility] Last Admin: 09/12/17 09:24 Dose: 40 mg Famotidine (Pepcid) 20 mg SLOW IVP Q12HR PRN PRN Reason: Heartburn or Indigestion Guaifenesin (Robitussin Sf) 200 mg PO Q4H PRN PRN Reason: Cough Guaifenesin (Mucinex) 600 mg PO Q12HR [facility] Last Admin: 09/12/17 21:37 Dose: 600 mg Meropenem 1 gm/ Device 50 mls @ 100 mls/hr IVPB 0100,0900,1700 [facility] Last Admin: 09/13/17 01:53 Dose: 50 mls Norepinephrine Bitartrate (Levophed) 250 mls @ 0 mls/hr IVPB INF PRN; Protocol ; Titrate PRN Reason: Blood Pressure Last Admin: 09/12/17 23:46 Dose: 250 mls Vancomycin HCl 1.5 gm/ Sodium (Chloride) 300 mls @ 200 mls/hr IVPB 0300 [facility] Last Admin: 09/13/17 02:46 Dose: 300 mls Lactulose (Lactulose) 20 gm PO DAILYPRN PRN PRN Reason: Constipation Last Admin: 09/13/17 04:51 Dose: 20 gm Magnesium Hydroxide (Milk Of Magnesium) 30 ml PO DAILYPRN PRN PRN Reason: Constipation Midodrine (Proamatine) 5 mg PO BID [facility] Last Admin: 09/12/17 21:38 Dose: 5 mg Mineral Oil/White Petrolatum (Eucerin Cream) 0 gm TOP BIDPRN PRN PRN Reason: Dry Skin Miscellaneous Medication (Pharmacy To Dose) 1 each IVPB PRN PRN PRN Reason: Pharmacy to dose Ondansetron HCl (Zofran) 4 mg IVP Q6H PRN PRN Reason: Nausea/Vomiting Last Admin: 09/11/17 20:16 Dose: 4 mg Ondansetron HCl (Zofran Odt) 4 mg PO Q6H PRN PRN Reason: Nausea/Vomiting Pantoprazole Sodium (Protonix) 40 mg PO DAILY [facility] Last Admin: 09/12/17 09:22 Dose: 40 mg Phenol (Chloraseptic [place] 180 Ml Bot) 0 ml PO PRN PRN PRN Reason: Sore Throat Phenytoin Sodium (Dilantin Chewable) 100 mg PO BID [facility] Last Admin: 09/12/17 21:38 Dose: Not Given Polyethylene Glycol (Miralax) 17 gm PO DAILY [facility] Last Admin: 09/12/17 09:21 Dose: 17 gm Saccharomyces Boulardii (Florastor) 250 mg PO DAILY [facility] Last Admin: 09/12/17 09:21 Dose: 250 mg Scopolamine (Transderm Scop) 1.5 mg TOP Q3D [facility] Last Admin: 09/11/17 09:42 Dose: 1.5 mg Simethicone (Mylicon Chewable) 80 mg PO BID PRN PRN Reason: Gas Pain Sodium Biphosphate/Sodium Phosphate (Fleet Enema) 133 ml [place] ONE PRN PRN Reason: Constipation Stop: 09/14/17 08:02 Sodium Biphosphate/Sodium Phosphate (Fleet Enema) 133 ml [place] NOW [facility] Stop: 09/13/17 11:00 Sodium Chloride ([place] Nasal [place] 0.65%) 0 ml EA NARE QIDPRN PRN PRN Reason: Nasal Congestion Sodium Chloride (Flush - Normal Saline) 10 ml IVF PRN PRN PRN Reason: Saline Flush
[2017-09-13] MEDS: Saccharomyces boulardii 250 MG CAP PO SCH (09:55)
[2017-09-13] MEDS: Baclofen 10 MG TAB PO SCH ×3 (09:55→21:35)
[2017-09-13] MEDS: Midodrine HCl 5 MG TAB PO SCH ×2 (09:55→21:34)
[2017-09-13] MEDS: Enoxaparin Sodium 40 MG/0.4 ML SYRINGE SC SCH (09:56)
[2017-09-13] MEDS: Polyethylene Glycol 3350 17 GM Packet PO SCH (09:56)
[2017-09-13] MEDS: guaiFENesin ER 600 MG TAB PO SCH ×2 (09:56→21:36)
[2017-09-13] MEDS: Phenytoin 50 MG Chewable Tablet PO SCH ×2 (10:00→21:36)
[2017-09-13] MEDS: Sodium Chloride 0.45% 1,000 ML IV SCH (13:54)
--- NOTE | 2017-09-13 19:22 | PRG ---
DATE OF SERVICE: 09/13/2017 Gloria Del Toro is feeling much better. PHYSICAL EXAMINATION: VITALS: His heart rate is 102, blood pressure 111/74, respiratory rate is 20, oximetry is 100%. LUNGS: Clear. HEART: Regular rhythm. ABDOMEN: Soft. He had a large bowel movement. He still protuberant and says he needs to have anoth er one. He had no new lab today. MICROBIOLOGY: Blood cultures remain negative. IMPRESSION: 1. Intravascular volume depletion, severe, clinically improved. 2. Quadriplegia. 3. ? Seizure disorder. He is on a low dose of Dilantin. He says he does not have a seizure disorde r but I am not sure if this is reliable. There are no Dilantin levels in the computer. PLAN: Continue supportive care. He is probably stable to transfer out of the Critical Care Unit, so meplace with support like intermediate care within the next 24 hours.
[2017-09-14] MEDS: MEROPENEM 1 GM/50 ML 1 GM in Premix Bag 1 BAG IVPB SCH ×4 (00:30→22:53)
[2017-09-14] MEDS: Albumin 25% 25 GM/100 ML BOT IVPB SCH ×3 (00:30→14:48)
[2017-09-14] MEDS: Sodium Chloride 0.45% 1,000 ML IV SCH ×3 (00:32→22:50)
[2017-09-14] MEDS: Acetaminophen 325 MG TAB PO PRN ×2 (00:57→16:34)
[2017-09-14] MEDS: Vancomycin HCl 1.5 GM in Sodium Chloride 0.9% 250 ML 300 ML IVPB SCH (03:08)
[2017-09-14 05:38] LABS: Anion Gap 12 mmol/L (10-20); BUN (Urea Nitrogen) 13 mg/dL (8.4-25.7); Calc. Creatinine Clearance 136 mL/min (70-130); Calcium 9.6 mg/dL (7.8-10.44); Carbon Dioxide 21 mmol/L (22-29); Chloride 108 mmol/L (98-107); Estimated GFR-MDRD Greater than 90; Glucose 83 mg/dL (70-105); Sodium 138 mmol/L (136-145)
[2017-09-14 05:46] LABS: Potassium 2.9 mmol/L (3.5-5.1)
[2017-09-14] MEDS ORDERED: Potassium Chloride 20 MEQ TAB PO SCH (06:15)
[2017-09-14] MEDS: Scopolamine 1.5 mg/72 hour Patch TOP SCH (06:39)
[2017-09-14 06:49] LABS: Anion Gap 13 mmol/L (10-20); BUN (Urea Nitrogen) 13 mg/dL (8.4-25.7); Calc. Creatinine Clearance 134 mL/min (70-130); Calcium 9.5 mg/dL (7.8-10.44); Carbon Dioxide 21 mmol/L (22-29); Chloride 108 mmol/L (98-107); Estimated GFR-MDRD Greater than 90; Glucose 80 mg/dL (70-105); Sodium 139 mmol/L (136-145)
[2017-09-14 06:53] LABS: Magnesium 1.8 mg/dL (1.6-2.6)
[2017-09-14 06:58] LABS: Phosphorus 1.9 mg/dL (2.3-4.7); Potassium 2.9 mmol/L (3.5-5.1)
[2017-09-14] MEDS ORDERED: Potassium Phosphate 30 MMOL in Sodium Chloride 0.9% 500 ML IVPB SCH (07:15)
--- NOTE | 2017-09-14 07:44 | PRG ---
DATE OF SERVICE: 09/14/2017 Gloria Del Toro is in no distress. He says he is feeling better. He is almost back to normal he says. He denies shortness of breath. PHYSICAL EXAMINATION: VITAL SIGNS: He is 124/84, heart rate is 106, respiratory rate is 18, temperature is 99. LUNGS: Lungs are clear. HEART: Regular rhythm. ABDOMEN: Abdomen is soft. Blood cultures remain negative. Sodium 139, potassium 2.9, chloride 108, bicarbonate 21, BUN 13, creatinine 0.6. Phosphorus was 1.9. IMPRESSION: 1. Quadriplegia. 2. Intravascular volume depletion, resolved. 3. ? Seizure disorder on a low dose of Dilantin. 4. Hypophosphatemia. This should be replaced. We will continue to follow.
[2017-09-14 07:53] LABS: Hemoglobin 5.5 g/dL (14.0-18.0); Mean Corpuscular HGB CONC 35.6 g/dL (32.0-36.0); Mean Corpuscular Hemoglobin 31.9 pg (27.0-31.0); Mean Corpuscular Volume 89.7 fL (78.0-98.0); RBC Distribution Width 13.2 % (11.5-14.5); Red Blood Cell (RBC) Count 1.74 mill/uL (4.70-6.10)
[2017-09-14 08:00] LABS: Band 14 % (5-11); Eosinophils 1 % (0-10); Lymphocytes 19 % (21-51); MDiff Complete? YES; Mean Platelet Volume 7.3 fL (7.4-10.4); Monocytes 14 % (0-10); Neutrophil 51 % (42-75); PLT Morphology Comment Appears Decreased; Platelet Count 66 thou/uL (130-400); Polychromasia MODERATE = 3-4 cells (100X) (0-2/hpf)
[2017-09-14 08:19] LABS: Anion Gap 13 mmol/L (10-20); BUN (Urea Nitrogen) 12 mg/dL (8.4-25.7); Calc. Creatinine Clearance 135 mL/min (70-130); Calcium 9.4 mg/dL (7.8-10.44); Carbon Dioxide 21 mmol/L (22-29); Chloride 108 mmol/L (98-107); Estimated GFR-MDRD Greater than 90; Glucose 81 mg/dL (70-105); Sodium 139 mmol/L (136-145)
[2017-09-14 08:29] LABS: Potassium 2.9 mmol/L (3.5-5.1)
[2017-09-14] MEDS ORDERED: Meropenem 1 GM in Sodium Chloride 0.9% 100 ML IVPB SCH (09:00)
[2017-09-14] MEDS: Enoxaparin Sodium 40 MG/0.4 ML SYRINGE SC SCH (09:50)
[2017-09-14] MEDS: Baclofen 10 MG TAB PO SCH ×3 (09:50→22:50)
[2017-09-14] MEDS: guaiFENesin ER 600 MG TAB PO SCH ×2 (09:50→21:55)
[2017-09-14] MEDS: Midodrine HCl 5 MG TAB PO SCH ×2 (09:52→22:41)
[2017-09-14] MEDS: Saccharomyces boulardii 250 MG CAP PO SCH (09:53)
[2017-09-14] MEDS: Polyethylene Glycol 3350 17 GM Packet PO SCH (09:53)
--- NOTE | 2017-09-14 10:19 | PDOC.PN ---
- Subjective Encounter Start Date: 09/14/17 Encounter Start Time: 08:40 has abdominal distension, today Hb dropped, he has liquid diarrhoea he had fever last night - Objective MAR Reviewed: Yes Vital Signs & Weight: Vital Signs (12 hours) Temp Pulse Resp Pulse Ox 09/14/17 07:51 99 09/14/17 07:48 98 14 99 09/14/17 06:00 99.9 F H 09/14/17 04:00 99.8 F H 09/14/17 03:00 100.1 F H 09/14/17 02:50 100 23 H 100 09/14/17 02:00 100.6 F H 09/14/17 01:00 101.0 F H 09/13/17 23:05 108 H 26 H 100 Weight Admit Weight 164 lb 3.91 oz Weight 167 lb 8.821 oz Most Recent Monitor Data Heart Rate from ECG 98 NIBP 112/70 NIBP BP-Mean 81 Respiration from ECG 24 SpO2 100 I&O: 09/13/17 09/14/17 09/15/17 06:59 06:59 06:59 Intake Total 3979.5 4597 Output Total 2210 1345 Balance 1769.5 3252 Result Diagrams: 09/14/17 07:28 09/14/17 07:28 Radiology Reviewed by me: Yes EKG Reviewed by me: Yes (sinus tachycardia) Phys Exam - Physical Examination Constitutional: NAD HEENT: PERRLA, moist MMs, sclera anicteric Neck: no JVD, supple Respiratory: no wheezing, no rales, no rhonchi Cardiovascular: RRR, no significant murmur, no rub tachycardia gaseous distension Musculoskeletal: no edema, pulses present quadriplegia with contracture Psychiatric: normal affect Skin: no rash, normal turgor Dx/Plan (1) Septic shock Code(s): A41.9 - SEPSIS, UNSPECIFIED ORGANISM; R65.21 - SEVERE SEPSIS WITH SEPTIC SHOCK Status: Acute (2) prison-acquired pneumonia Code(s): J18.9 - PNEUMONIA, UNSPECIFIED ORGANISM Status: Acute (3) Cystostomy malfunction Code(s): N99.512 - CYSTOSTOMY MALFUNCTION Status: Resolved (4) Pancytopenia Code(s): D61.818 - OTHER PANCYTOPENIA Status: Acute Comment: due to sepsis (5) Transaminitis Code(s): R74.0 - NONSPEC ELEV OF LEVELS OF TRANSAMNS & LACTIC ACID DEHYDRGNSE Status: Acute Comment: due to sepsis (6) GERD (gastroesophageal reflux disease) Code(s): K21.9 - GASTRO-ESOPHAGEAL REFLUX DISEASE WITHOUT ESOPHAGITIS Status: Chronic (7) Neurogenic bladder Code(s): N31.9 - NEUROMUSCULAR DYSFUNCTION OF BLADDER, UNSPECIFIED Status: Chronic (8) Quadriplegia Code(s): G82.50 - QUADRIPLEGIA, UNSPECIFIED Status: Chronic (9) Seizure disorder Code(s): G40.909 - EPILEPSY, UNSP, NOT INTRACTABLE, WITHOUT STATUS EPILEPTICUS Status: Chronic (10) Chronic constipation Code(s): K59.09 - OTHER CONSTIPATION Status: Chronic (11) Abdominal distension (gaseous) Code(s): R14.0 - ABDOMINAL DISTENSION (GASEOUS) Status: Acute - Plan cont current plan of care, continue antibiotics * CT abdomen ordered * PRBC ordered * replace potassium * continue IVF * continue meropenam and vancomycin * medication reviewed as below * symptomatic treatment * now off levophed * will need to monitor for any hemodynemic compromise. Review of Systems - Review of Systems Constitutional: fever. negative: chills, sweats, weakness, malaise, other Eyes: negative: Pain, Vision Change, Conjunctivae Inflammation, Eyelid Inflammation, Redness, Other ENT: negative: Ear Pain, Ear Discharge, Nose Pain, Nose Discharge, Nose Congestion, Mouth Pain, Mouth Swelling, Throat Pain, Throat Swelling, Other Respiratory: negative: Cough, Dry, Shortness of Breath, Hemoptysis, SOB with Excertion, Pleuritic Pain, Sputum, Wheezing Cardiovascular: negative: chest pain, palpitations, orthopnea, paroxysmal nocturnal dyspnea, edema, light headedness, other Gastrointestinal: Abdominal Pain. negative: Nausea, Vomiting, Diarrhea, Constipation, Melena, Hematochezia, Other Genitourinary: negative: Dysuria, Frequency, Incontinence, Hematuria, Retention , Other Musculoskeletal: negative: Neck Pain, Shoulder Pain, Arm Pain, Back Pain, Hand Pain, Leg Pain, Foot Pain, Other Skin: negative: Rash, Lesions, Lyle, Bruising, Other - Medications/Allergies Allergies/Adverse Reactions: Allergies Allergy/AdvReac Type Severity Reaction Status Date / Time No Known Allergies Allergy Verified 09/12/17 20:17 Medications: Current Medications Acetaminophen (Tylenol) 650 mg PO Q4H PRN PRN Reason: Headache/Fever or Pain(2-3) Last Admin: 09/14/17 00:57 Dose: 650 mg Acetaminophen (Tylenol) 325 mg PO Q4H PRN PRN Reason: PAIN(1)/FEVER Al Hydroxide/Mg Hydroxide (Maalox) 15 ml PO Q4H PRN PRN Reason: Heartburn or Indigestion Albumin Human (Albumin 25%) 25 gm IVPB Q6HR [facility] Stop: 09/14/17 12:01 Last Admin: 09/14/17 06:39 Dose: 25 gm Albuterol/Ipratropium (Duoneb) 3 ml NEB Q4H PRN PRN Reason: SOB/WHEEZE Albuterol/Ipratropium (Duoneb) 3 ml NEB [id number] [facility] Last Admin: 09/14/17 07:48 Dose: 3 ml Artificial Tears (Tears Naturale) 1 - 2 drop EA EYE ASDIR PRN PRN Reason: Dry Eyes Baclofen (Lioresal) 5 mg PO TID [facility] Last Admin: 09/14/17 09:50 Dose: Not Given Bisacodyl (Dulcolax) 10 mg [place] DAILYPRN PRN PRN Reason: Constipation Famotidine (Pepcid) 20 mg SLOW IVP Q12HR PRN PRN Reason: Heartburn or Indigestion Guaifenesin (Robitussin Sf) 200 mg PO Q4H PRN PRN Reason: Cough Guaifenesin (Mucinex) 600 mg PO Q12HR [facility] Last Admin: 09/14/17 09:50 Dose: Not Given Norepinephrine Bitartrate (Levophed) 250 mls @ 0 mls/hr IVPB INF PRN; Protocol ; Titrate PRN Reason: Blood Pressure Last Admin: 09/12/17 23:46 Dose: 250 mls Vancomycin HCl 1.5 gm/ Sodium (Chloride) 300 mls @ 200 mls/hr IVPB 0300 [facility] Last Admin: 09/14/17 03:08 Dose: 300 mls Sodium Chloride (1/2 Normal Saline) 1,000 mls @ 100 mls/hr IV .Q10H [facility] Last Admin: 09/14/17 09:53 Dose: 1,000 mls Meropenem 1 gm/ Device 50 mls @ 100 mls/hr IVPB 0100,0900,1700 [facility] Last Admin: 09/14/17 09:51 Dose: 50 mls Potassium Chloride 40 meq/ (Device) 100 mls @ 50 mls/hr IVPB 1030 [facility] Stop: 09/14/17 12:29 Lactulose (Lactulose) 20 gm PO DAILYPRN PRN PRN Reason: Constipation Last Admin: 09/13/17 04:51 Dose: 20 gm Magnesium Hydroxide (Milk Of Magnesium) 30 ml PO DAILYPRN PRN PRN Reason: Constipation Midodrine (Proamatine) 5 mg PO BID [facility] Last Admin: 09/14/17 09:52 Dose: 5 mg Mineral Oil/White Petrolatum (Eucerin Cream) 0 gm TOP BIDPRN PRN PRN Reason: Dry Skin Miscellaneous Medication (Pharmacy To Dose) 1 each IVPB PRN PRN PRN Reason: Pharmacy to dose Ondansetron HCl (Zofran) 4 mg IVP Q6H PRN PRN Reason: Nausea/Vomiting Last Admin: 09/11/17 20:16 Dose: 4 mg Ondansetron HCl (Zofran Odt) 4 mg PO Q6H PRN PRN Reason: Nausea/Vomiting Pantoprazole Sodium (Protonix) 40 mg PO DAILY [facility] Last Admin: 09/14/17 09:53 Dose: 40 mg Phenol (Chloraseptic [place] 180 Ml Bot) 0 ml PO PRN PRN PRN Reason: Sore Throat Polyethylene Glycol (Miralax) 17 gm PO DAILY [facility] Last Admin: 09/14/17 09:53 Dose: Not Given Saccharomyces Boulardii (Florastor) 250 mg PO DAILY [facility] Last Admin: 09/14/17 09:53 Dose: Not Given Scopolamine (Transderm Scop) 1.5 mg TOP Q3D [facility] Last Admin: 09/14/17 06:39 Dose: 1.5 mg Simethicone (Mylicon Chewable) 80 mg PO BID PRN PRN Reason: Gas Pain Sodium Chloride ([place] Nasal [place] 0.65%) 0 ml EA NARE QIDPRN PRN PRN Reason: Nasal Congestion Sodium Chloride (Flush - Normal Saline) 10 ml IVF PRN PRN PRN Reason: Saline Flush
[2017-09-14] MEDS ORDERED: Potassium Chloride 40 MEQ in Premix Bag 1 BAG IVPB SCH (10:30)
[2017-09-14 10:55] LABS: Fibrinogen 220 mg/dL (253-463)
[2017-09-14 10:56] LABS: INR-International Normal Ratio 1.1; Prothrombin Time 14.3 SEC (12.0-14.7)
[2017-09-14 10:57] LABS: D-Dimer Test 0.67 *mcg/mL (0.27-0.43); PTT 32.7 SEC (22.9-36.1)
[2017-09-14 12:26] LABS: FSP-Qualitative ABNORMAL (Normal); FSP-Semiquantitative >=5 & <20 mcg/mL (Less than 5)
[2017-09-14] MEDS ORDERED: ISOVUE-370 76%-LOCM 1 ML ONE (13:02)
[2017-09-14 13:13] LABS: Platelet Count 54 thou/uL (130-400)
--- NOTE | 2017-09-14 14:01 | CT ---
CT ABDOMEN AND PELVIS WITH CONTRAST: HISTORY: Quadriplegia of patient with abdominal distention for the past few days and decreasing hemoglobin and hematocrit. COMPARISON: 05/07/2017 TECHNIQUE: Multiple contiguous axial images were obtained in a CT of the abdomen and pelvis with contrast. Cont rast was administered p.o. Coronal reformats were performed. FINDINGS: There is a hyperdense region along the right pelvic sidewall, which was not present on the prior exam ination. This measures 14.1 x 6.2 x 8.8 cm in size. This could represent a mass or hematoma. The u rinary bladder is decompressed with a suprapubic catheter. There is moderate bilateral hydronephrosi s and hydroureter. There are multiple scattered hypodensities in the spleen, which do not meet criteria for cysts and ar e concerning for multiple splenic masses. The gallbladder is contracted. The liver, adrenal glands, and pancreas are unremarkable. Moderate stool retention is seen throughout the colon. The sigmoid colon is severely distended and f illed with air. The sigmoid colon is not obviously twisted, but a sigmoid volvulus cannot be exclude d. The sigmoid colon measures approximately 10.3 cm in width. The small bowel is normal in caliber without significant distention. The appendix is unremarkable. There are enlarged retrocrural lymph nodes, measuring up to 1.6 cm in short axis. No enlarged pelvic lymph nodes are seen. Degenerative changes are seen in the spine. There is severe heterotopic ossification surrounding bot h hips. There are trace bilateral pleural effusions. The chest and abdominal wall soft tissues are unremarka ble. IMPRESSION: 1. There is a hyperdense region along the right pelvic sidewall. This could represent a hematoma or mass. This was not seen on the prior examination. 2. Multiple splenic masses are nonspecific. 3. Bilateral hydronephrosis with decompression of the urinary bladder via a suprapubic catheter. 4. Enlargement of the sigmoid colon with air. A sigmoid volvulus is a possibility, although the pos ition of the colon has not changed significantly, compared to the prior examination. There is modera te stool retention in the colon more proximal to the sigmoid colon. 5. Nonspecific stable, enlarged retrocrural lymph nodes. POS: [facility]
[2017-09-14] MEDS: Phenytoin 50 MG Chewable Tablet PO SCH (16:46)
[2017-09-14 18:57] LABS: Band 1 % (5-11); Hemoglobin 8.4 g/dL (14.0-18.0); Lymphocytes 5 % (21-51); MDiff Complete? YES; Mean Corpuscular HGB CONC 35.4 g/dL (32.0-36.0); Mean Corpuscular Volume 90.4 fL (78.0-98.0); Mean Platelet Volume 6.8 fL (7.4-10.4); Monocytes 5 % (0-10); Neutrophil 89 % (42-75); PLT Morphology Comment Appears Decreased; Platelet Count 64 thou/uL (130-400); RBC Distribution Width 12.8 % (11.5-14.5); Red Blood Cell (RBC) Count 2.64 mill/uL (4.70-6.10); White Blood Cell (WBC) Count 3.5 thou/uL (4.8-10.8)
[2017-09-15] MEDS ORDERED: Diltiazem 125 MG in Sodium Chloride 0.9% 100 ML IVPB SCH (00:15)
[2017-09-15 03:12] LABS: Vancomycin, Trough 13.9 ug/mL
[2017-09-15 03:27] LABS: Band 7 % (5-11); Eosinophils 1 % (0-10); Hemoglobin 8.9 g/dL (14.0-18.0); Lymphocytes 5 % (21-51); MDiff Complete? YES; Mean Corpuscular HGB CONC 36.4 g/dL (32.0-36.0); Mean Corpuscular Hemoglobin 32.5 pg (27.0-31.0); Mean Corpuscular Volume 89.3 fL (78.0-98.0); Mean Platelet Volume 6.5 fL (7.4-10.4); Monocytes 6 % (0-10); Neutrophil 80 % (42-75); Nucleated RBC 1 % (0); PLT Morphology Comment Appears Decreased; Platelet Count 87 thou/uL (130-400); Red Blood Cell (RBC) Count 2.73 mill/uL (4.70-6.10); White Blood Cell (WBC) Count 4.9 thou/uL (4.8-10.8)
[2017-09-15 03:30] LABS: Anion Gap 15 mmol/L (10-20); BUN (Urea Nitrogen) 9 mg/dL (8.4-25.7); Calc. Creatinine Clearance 142 mL/min (70-130); Calcium 9.7 mg/dL (7.8-10.44); Carbon Dioxide 19 mmol/L (22-29); Chloride 108 mmol/L (98-107); Estimated GFR-MDRD Greater than 90; Glucose 81 mg/dL (70-105); Potassium 3.6 mmol/L (3.5-5.1); Sodium 138 mmol/L (136-145)
[2017-09-15] MEDS: Vancomycin HCl 1.75 GM in Sodium Chloride 0.9% 500 ML IVPB SCH (04:41)
[2017-09-15] MEDS: Vancomycin HCl 1.5 GM in Sodium Chloride 0.9% 250 ML 300 ML IVPB SCH (07:12)
--- NOTE | 2017-09-15 10:28 | PRG ---
DATE OF SERVICE: 09/15/2017 SERVICE: Pulmonary Medicine INTERVAL HISTORY: The patient is doing fine from a respiratory standpoint. His abdominal distention is getting a little bit worse. He does not have any complaints of abdominal pain, though, he does not have very good sensation. He denies any fevers or chills. There are no overnight events other than his increasing confusion, once again, which is failing to clear this time around. PHYSICAL EXAMINATION: VITAL SIGNS: Afebrile currently with a T-max of 100.0, pulse 104, blood pressure 162/100, respirations 29, saturation 97% on room air. GENERAL: The patient is awake, alert, in no apparent distress. LUNGS: Decent air entry. There are crackles present in the dependent regions. No prolonged expiratory phase or wheezing is appreciated. HEART: Normal rate, regular. ABDOMEN: Distended. Bowel sounds are active. There is no rebound, guarding, or tenderness to palpation. GENITOURINARY: Vergara catheter in place. NEUROLOGIC: Grossly nonfocal. LABORATORY DATA: WBC 4.9, hemoglobin 8.9 and stable, platelets 87,000 and up trending. Neutrophil count is 80% with 7% bands. INR 1.1, fibrinogen 220, D- dimer 0.67. Basic metabolic profile is essentially unremarkable. Potassium is 3.6. Blood cultures x2 are unremarkable. C. diff antigen and toxin is negative. IMAGING: CT of the abdomen and pelvis demonstrates a retroperitoneal hematoma, and a largely dilated sigmoid colon. Bilateral hydronephrosis is also noted. Multiple splenic masses are present. ASSESSMENT: 1. Acute blood loss anemia. 2. Retroperitoneal hematoma, likely iatrogenic secondary to a fem line placement. 3. Dehydration, resolved. 4. Quadriplegia. 5. Abdominal distention. 6. Hypokalemia. 7. Hypophosphatemia. 8. Delirium. DISCUSSION AND PLAN: I will once again replace the potassium. We will start to diurese him gently through time. IV fluids will be interrupted as the patient is massively volume overloaded at this time. A GI consultation will be placed for the increasing abdominal distention. The splenic lesions will need to be investigated in the outpatient setting. Pulmonary Critical Care will continue to follow, but from my perspective, he is stable for transition to the medical unit. CHAR
[2017-09-15] MEDS ORDERED: Potassium Chloride 40 MEQ in Premix Bag 1 BAG IVPB SCH (10:30)
[2017-09-15] MEDS ORDERED: Furosemide 20 MG/2 ML VIAL SLOW IVP SCH (10:30)
[2017-09-15] MEDS: Baclofen 10 MG TAB PO SCH ×3 (10:41→21:12)
[2017-09-15] MEDS: Saccharomyces boulardii 250 MG CAP PO SCH (10:42)
[2017-09-15] MEDS: guaiFENesin ER 600 MG TAB PO SCH ×2 (10:42→21:12)
[2017-09-15] MEDS: Midodrine HCl 5 MG TAB PO SCH ×2 (10:43→21:12)
[2017-09-15] MEDS: MEROPENEM 1 GM/50 ML 1 GM in Premix Bag 1 BAG IVPB SCH ×2 (10:44→16:54)
[2017-09-15] MEDS: Polyethylene Glycol 3350 17 GM Packet PO SCH ×2 (11:05→21:13)
--- NOTE | 2017-09-15 11:39 | PDOC.PN ---
- Subjective Encounter Start Date: 09/15/17 Encounter Start Time: 09:50 still has abdominal distension, no fever, no need of levophed, vitals stable but has tachycardia, he does not have abdominal pain - Objective MAR Reviewed: Yes Vital Signs & Weight: Vital Signs (12 hours) Temp Pulse Resp Pulse Ox 09/15/17 10:57 106 H 19 99 09/15/17 08:00 100 F H 104 H 21 H 96 09/15/17 07:22 99 09/15/17 07:21 106 H 16 99 09/15/17 04:00 98.9 F 09/15/17 03:50 93 L 09/15/17 00:00 99.2 F Weight Admit Weight 164 lb 3.91 oz Weight 184 lb 4.903 oz Most Recent Monitor Data Heart Rate from ECG 106 NIBP 136/94 NIBP BP-Mean 118 Respiration from ECG 22 SpO2 100 I&O: 09/14/17 09/15/17 09/16/17 06:59 06:59 06:59 Intake Total 4597 6561 Output Total 1345 3045 580 Balance 3252 3516 -580 Result Diagrams: 09/15/17 02:30 09/15/17 02:30 EKG Reviewed by me: Yes (sinus tachycarida) Phys Exam - Physical Examination Constitutional: NAD HEENT: moist MMs, sclera anicteric Neck: no JVD, supple Respiratory: no wheezing, no rales, no rhonchi Cardiovascular: RRR, no significant murmur, no rub tachycardia Gastrointestinal: soft, positive bowel sounds distended Musculoskeletal: pulses present, edema present quadriplegia Lymphatic: no nodes Psychiatric: normal affect Skin: normal turgor Dx/Plan (1) Septic shock Code(s): A41.9 - SEPSIS, UNSPECIFIED ORGANISM; R65.21 - SEVERE SEPSIS WITH SEPTIC SHOCK Status: Acute (2) residential-acquired pneumonia Code(s): J18.9 - PNEUMONIA, UNSPECIFIED ORGANISM Status: Acute (3) Cystostomy malfunction Code(s): N99.512 - CYSTOSTOMY MALFUNCTION Status: Resolved (4) Pancytopenia Code(s): D61.818 - OTHER PANCYTOPENIA Status: Acute Comment: due to sepsis (5) Transaminitis Code(s): R74.0 - NONSPEC ELEV OF LEVELS OF TRANSAMNS & LACTIC ACID DEHYDRGNSE Status: Acute Comment: due to sepsis (6) GERD (gastroesophageal reflux disease) Code(s): K21.9 - GASTRO-ESOPHAGEAL REFLUX DISEASE WITHOUT ESOPHAGITIS Status: Chronic (7) Neurogenic bladder Code(s): N31.9 - NEUROMUSCULAR DYSFUNCTION OF BLADDER, UNSPECIFIED Status: Chronic (8) Quadriplegia Code(s): G82.50 - QUADRIPLEGIA, UNSPECIFIED Status: Chronic (9) Seizure disorder Code(s): G40.909 - EPILEPSY, UNSP, NOT INTRACTABLE, WITHOUT STATUS EPILEPTICUS Status: Chronic (10) Chronic constipation Code(s): K59.09 - OTHER CONSTIPATION Status: Chronic (11) Abdominal distension (gaseous) Code(s): R14.0 - ABDOMINAL DISTENSION (GASEOUS) Status: Acute (12) Anemia Code(s): D64.9 - ANEMIA, UNSPECIFIED Status: Acute (13) Bilateral hydronephrosis Code(s): N13.30 - UNSPECIFIED HYDRONEPHROSIS Status: Chronic (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 * DC IVF and give lasix for volume overload Review of Systems - Review of Systems Eyes: negative: Pain, Vision Change, Conjunctivae Inflammation, Eyelid Inflammation, Redness, Other ENT: negative: Ear Pain, Ear Discharge, Nose Pain, Nose Discharge, Nose Congestion, Mouth Pain, Mouth Swelling, Throat Pain, Throat Swelling, Other Respiratory: negative: Cough, Dry, Shortness of Breath, Hemoptysis, SOB with Excertion, Pleuritic Pain, Sputum, Wheezing Cardiovascular: negative: chest pain, palpitations, orthopnea, paroxysmal nocturnal dyspnea, edema, light headedness, other Gastrointestinal: negative: Nausea, Vomiting, Abdominal Pain, Diarrhea, Constipation, Melena, Hematochezia, Other Genitourinary: negative: Dysuria, Frequency, Incontinence, Hematuria, Retention , Other Musculoskeletal: negative: Neck Pain, Shoulder Pain, Arm Pain, Back Pain, Hand Pain, Leg Pain, Foot Pain, Other - Medications/Allergies Allergies/Adverse Reactions: Allergies Allergy/AdvReac Type Severity Reaction Status Date / Time No Known Allergies Allergy Verified 09/12/17 20:17 Medications: Current Medications Acetaminophen (Tylenol) 650 mg PO Q4H PRN PRN Reason: Headache/Fever or Pain(2-3) Last Admin: 09/14/17 16:34 Dose: 650 mg Acetaminophen (Tylenol) 325 mg PO Q4H PRN PRN Reason: PAIN(1)/FEVER Al Hydroxide/Mg Hydroxide (Maalox) 15 ml PO Q4H PRN PRN Reason: Heartburn or Indigestion Albuterol/Ipratropium (Duoneb) 3 ml NEB Q4H PRN PRN Reason: SOB/WHEEZE Albuterol/Ipratropium (Duoneb) 3 ml NEB [id number] [facility] Last Admin: 09/15/17 10:57 Dose: 3 ml Artificial Tears (Tears Naturale) 1 - 2 drop EA EYE ASDIR PRN PRN Reason: Dry Eyes Baclofen (Lioresal) 5 mg PO TID [facility] Last Admin: 09/15/17 10:41 Dose: 5 mg Bisacodyl (Dulcolax) 10 mg [place] DAILYPRN PRN PRN Reason: Constipation Famotidine (Pepcid) 20 mg SLOW IVP Q12HR PRN PRN Reason: Heartburn or Indigestion Furosemide (Lasix) 20 mg SLOW IVP NOW [facility] Stop: 09/15/17 12:30 Furosemide (Lasix) 20 mg SLOW IVP DAILY [facility] Stop: 09/17/17 09:01 Guaifenesin (Robitussin Sf) 200 mg PO Q4H PRN PRN Reason: Cough Guaifenesin (Mucinex) 600 mg PO Q12HR [facility] Last Admin: 09/15/17 10:42 Dose: 600 mg Meropenem 1 gm/ Device 50 mls @ 100 mls/hr IVPB 0100,0900,1700 [facility] Last Admin: 09/15/17 10:44 Dose: 50 mls Vancomycin HCl 1.75 gm/ Sodium (Chloride) 500 mls @ 250 mls/hr IVPB 0400 [facility] Last Admin: 09/15/17 04:41 Dose: 500 mls Potassium Chloride 40 meq/ (Device) 100 mls @ 25 mls/hr IVPB NOW [facility] Stop: 09/15/17 14:29 Lactulose (Lactulose) 20 gm PO DAILYPRN PRN PRN Reason: Constipation Last Admin: 09/13/17 04:51 Dose: 20 gm Magnesium Hydroxide (Milk Of Magnesium) 30 ml PO DAILYPRN PRN PRN Reason: Constipation Midodrine (Proamatine) 5 mg PO BID [facility] Last Admin: 09/15/17 10:43 Dose: 5 mg Mineral Oil/White Petrolatum (Eucerin Cream) 0 gm TOP BIDPRN PRN PRN Reason: Dry Skin Miscellaneous Medication (Pharmacy To Dose) 1 each IVPB PRN PRN PRN Reason: Pharmacy to dose Ondansetron HCl (Zofran) 4 mg IVP Q6H PRN PRN Reason: Nausea/Vomiting Last Admin: 09/11/17 20:16 Dose: 4 mg Ondansetron HCl (Zofran Odt) 4 mg PO Q6H PRN PRN Reason: Nausea/Vomiting Pantoprazole Sodium (Protonix) 40 mg PO DAILY [facility] Last Admin: 09/15/17 10:42 Dose: 40 mg Phenol (Chloraseptic [place] 180 Ml Bot) 0 ml PO PRN PRN PRN Reason: Sore Throat Polyethylene Glycol (Miralax) 17 gm PO DAILY [facility] Last Admin: 09/15/17 11:05 Dose: Not Given Saccharomyces Boulardii (Florastor) 250 mg PO DAILY [facility] Last Admin: 09/15/17 10:42 Dose: 250 mg Scopolamine (Transderm Scop) 1.5 mg TOP Q3D [facility] Last Admin: 09/14/17 06:39 Dose: 1.5 mg Simethicone (Mylicon Chewable) 80 mg PO BID PRN PRN Reason: Gas Pain Sodium Chloride ([place] Nasal [place] 0.65%) 0 ml EA NARE QIDPRN PRN PRN Reason: Nasal Congestion Sodium Chloride (Flush - Normal Saline) 10 ml IVF PRN PRN PRN Reason: Saline Flush
[2017-09-15] MEDS: Furosemide 20 MG/2 ML VIAL SLOW IVP SCH (13:09)
--- NOTE | 2017-09-15 16:21 | CON ---
DATE OF CONSULTATION: 09/15/2017 REASON FOR CONSULTATION: Abnormal GI imaging. CONSULTING PHYSICIAN: Dr. Lauren Perez. HISTORY OF PRESENT ILLNESS: The patient is a 56-year-old -Citizen Of [place] male with past medical history of quadriplegia, neurogenic bladder, diabetes, orthostatic hypotension, GERD, seizure disorder and chronic constipation who initially presented to the hospital with complaints of shortness of breath. Prior to admission, he was residing at the [facility] with an acute onset of increased work of breathing and respiratory distress. He was subsequently transferred to the hospital via EMS with a blood pressure on admission noted to be 68/38. He was ultimately worked up for possible septic shock and noted to have multiple small ill-defined lesions throughout the lung concerning for septic emboli versus metastatic disease. He was ultimately placed on pressor support along with aggressive IV fluid resuscitation and has thus far responded well to treatment. However, during the course of his hospitalization, he was noted to have increased abdominal distention with CT of the abdomen and pelvis obtained on 09/14/2017 showing increased gaseous distention of the sigmoid colon concerning for possible underlying process. Currently, he states that he is feeling much better with no acute events or problems overnight. However, per chart review, the patient did have some intermittent confusion within the last 24-48 hours that has seemed to resolve on clinical examination today. Currently, he denies any nausea, vomiting, fevers, chills, abdominal pain, GI bleeding, dysphagia or odynophagia. However , he has had approximately 2-3 small volume liquid bowel movements within the last 24 hours, and he has passed a fair amount of flatus with positional changes when they clean him, but otherwise he is doing well. REVIEW OF SYSTEMS: A 10-category review of systems was obtained with all responses negative except for the pertinent positives as listed in the HPI. PAST MEDICAL HISTORY: As per HPI. PAST SURGICAL HISTORY: Cervical spine surgery, colonoscopy in 2006 and 2016, EGD with PEG tube placement and subsequent removal, tracheostomy placement with subsequent closure. FAMILY HISTORY: Denies any GI malignancies. SOCIAL HISTORY: Denies any tobacco, alcohol or illicit drug use. OUTPATIENT MEDICATIONS: Reviewed. ALLERGIES: No known drug allergies. PHYSICAL EXAMINATION: VITAL SIGNS: Temperature 98.6, pulse 103, blood pressure 151/75, respiratory rate 18, satting 100% on room air. GENERAL: Patient is lying in bed in no acute distress, alert and oriented x3. Speech is at times difficult to understand, but otherwise coherent. NECK: Supple. No JVD noted. CARDIOVASCULAR: Tachycardic rate, but regular rhythm. No discernible murmurs, gallops or rubs. RESPIRATORY: Some coarse crackles in the bilateral lower lung bases, but difficult to discern given the patient's inability to sit forward effectively. No discernible wheezes or rales. ABDOMEN: High pitched tingling sounds primarily heard in the lower abdominal quadrants. Moderately tense to palpation with moderate to severe abdominal distention. No tenderness to palpation with either light or deep palpation. EXTREMITIES: No cyanosis, clubbing or edema. Significant contractures noted of both the upper extremities. LABORATORY DATA: CBC with a white blood cell count of 4.9, hemoglobin 8.9, hematocrit 24.4, platelets 87. Chemistry with sodium of 138, potassium 3.6, chloride 108, CO2 19, BUN 9, creatinine 0.64 and glucose 81. IMAGING DATA: CT of the abdomen and pelvis obtained on 09/14/2017 showed a hyperdense region along the right pelvic sidewall consistent with a mass or hematoma. Multiple scattered hypodensities in the spleen concerning for splenic masses. Moderate stool retention was seen throughout the colon along with the sigmoid colon being severely distended and filled with air with a volvulus not being excluded at this time. He also did have some enlarged retrocrural lymphadenopathy. Upon review with the radiologist (Dr. Phipps) in comparison to his prior CT scans in 05/2017, 01/2016 and 09/2015, there has been relatively no change in the distention or size of the sigmoid colon with no evidence of volvulus on any of these imaging studies. ASSESSMENT AND PLAN: The patient is a 56-year-old -Citizen Of [place] male with past medical history of quadriplegia with neurogenic bladder, diabetes, orthostatic hypotension, GERD, seizure disorder and chronic constipation presenting with abnormal imaging consistent with gaseous distention of the sigmoid colon. Abnormal GI imaging: The patient initially presented to the hospital with increased respiratory distress with multiple small lesions in the lung consistent with septic emboli. He was ultimately placed on aggressive antibiotic regimen along with IV fluid support that did ultimately require pressor support. However, over the last 3- 4 days, he has responded well to treatment and was subsequently downgraded to a medical bed earlier today given the improvement in his status; however, he did have an CT of the abdomen and pelvis obtained on 09/14/2017 which showeds significant gaseous distention of the sigmoid colon with the diameter being approximately 10.5 cm in diameter. Upon conferral with the radiologist about these particular findings, there is no discernible evidence of possible volvulus on this or prior studies. However, gaseous distention of his sigmoid colon has been present since at least 2013. With his history of chronic constipation, the more likely explanation for this gaseous distention in this region of the colon is related to increased distention of the colon secondary to retained stool and inability of the colon to regain its previous shape resulting in a functional colonic ileus. With the liquid stools that he is currently having, it is consistent with an encopresis type picture where he may have a solid stool plug within the distal colon with liquid stool flowing around it. Currently, he is on MiraLax and lactulose for his bowel regimen, the latter being very gas forming and could potentially contribute to the gaseous distention of his sigmoid colon. He did undergo colonoscopy in 02/2016 , which did not show any abnormalities of the colon, with visualization of the sigmoid colon; however, it was noted that there was marked dilation of the sigmoid colon with inability to achieve cecal intubation due to the colonic distention encountered during the colonoscopy. At this time, the likelihood of colonic volvulus, colonic malignancy, or obstruction contributing to his significant sigmoid distention is unlikely. RECOMMENDATIONS: 1. I would continue patient on a bowel regimen consisting of simethicone 1 capful twice daily. 2. I would discontinue the lactulose for now given the gas forming capabilities of this particular medication that could be contributing to the current abdominal distention. 3. I agree with continued administration of Miralax twice daily, but would schedule it rather than as needed medication. 4. Would recommend frequent turning of the patient to facilitate flatus release. 5. We would continue to replete electrolytes to maintain normal electrolytes as needed for colonic contraction. 6. Would monitor with KUB every other day for response to treatment. 7. Colonoscopic evaluation is not necessarily indicated at this time. If not responding to more conservative management, may ultimately consider this modality in the future. We will continue to follow. Please call with any additional questions. CHAR
[2017-09-15] MEDS: Sodium Chloride 0.45% 1,000 ML IV SCH (16:43)
[2017-09-15] MEDS: Simethicone Chewable 80 MG TAB PO SCH (21:18)
[2017-09-16] MEDS: MEROPENEM 1 GM/50 ML 1 GM in Premix Bag 1 BAG IVPB SCH ×3 (01:40→16:46)
[2017-09-16] MEDS: Vancomycin HCl 1.75 GM in Sodium Chloride 0.9% 500 ML IVPB SCH (04:56)
[2017-09-16] MEDS: Acetaminophen 325 MG TAB PO PRN ×2 (05:17→21:16)
[2017-09-16 05:59] LABS: Anion Gap 16 mmol/L (10-20); BUN (Urea Nitrogen) 8 mg/dL (8.4-25.7); Calc. Creatinine Clearance 151 mL/min (70-130); Calcium 9.6 mg/dL (7.8-10.44); Carbon Dioxide 19 mmol/L (22-29); Chloride 108 mmol/L (98-107); Estimated GFR-MDRD Greater than 90; Glucose 63 mg/dL (70-105); Magnesium 1.7 mg/dL (1.6-2.6); Phosphorus 2.6 mg/dL (2.3-4.7); Potassium 2.9 mmol/L (3.5-5.1); Sodium 140 mmol/L (136-145)
[2017-09-16 06:27] LABS: Band 13 % (5-11); Hemoglobin 8.5 g/dL (14.0-18.0); Lymphocytes 16 % (21-51); MDiff Complete? YES; Mean Corpuscular HGB CONC 34.7 g/dL (32.0-36.0); Mean Corpuscular Hemoglobin 31.8 pg (27.0-31.0); Mean Corpuscular Volume 91.6 fL (78.0-98.0); Mean Platelet Volume 6.3 fL (7.4-10.4); Monocytes 11 % (0-10); Neutrophil 60 % (42-75); PLT Morphology Comment Appears Decreased; Platelet Count 84 thou/uL (130-400); RBC Distribution Width 13.6 % (11.5-14.5); Red Blood Cell (RBC) Count 2.68 mill/uL (4.70-6.10); White Blood Cell (WBC) Count 3.3 thou/uL (4.8-10.8)
[2017-09-16] MEDS ORDERED: Potassium Chloride 20 MEQ TAB PO SCH (06:45)
[2017-09-16] MEDS: Saccharomyces boulardii 250 MG CAP PO SCH (08:12)
[2017-09-16] MEDS: Midodrine HCl 5 MG TAB PO SCH ×2 (08:12→21:13)
[2017-09-16] MEDS: Baclofen 10 MG TAB PO SCH ×3 (08:12→21:12)
[2017-09-16] MEDS: Furosemide 20 MG/2 ML VIAL SLOW IVP SCH (08:12)
[2017-09-16] MEDS: guaiFENesin ER 600 MG TAB PO SCH ×2 (08:13→21:13)
[2017-09-16] MEDS: Simethicone Chewable 80 MG TAB PO SCH ×2 (08:13→21:14)
[2017-09-16] MEDS: Polyethylene Glycol 3350 17 GM Packet PO SCH ×2 (08:13→21:14)
--- NOTE | 2017-09-16 11:18 | PDOC.PN ---
- Subjective Encounter Start Date: 09/16/17 Encounter Start Time: 09:10 Patient seen and examined. No new complaints. No overnight events still has abdominal distention but no pain, no fever - Objective MAR Reviewed: Yes Vital Signs & Weight: Vital Signs (12 hours) Temp Pulse Resp BP Pulse Ox 09/16/17 10:32 100 16 09/16/17 08:00 98.4 F 100 16 100 09/16/17 07:30 100 16 09/16/17 07:20 100.1 F H 107 H 20 160/97 H 99 09/16/17 01:52 104 H 16 97 09/16/17 00:00 98.9 F Weight Admit Weight 164 lb 3.91 oz Weight 184 lb 4.903 oz Most Recent Monitor Data Heart Rate from ECG 106 NIBP 136/94 NIBP BP-Mean 118 Respiration from ECG 22 SpO2 100 I&O: 09/15/17 09/16/17 09/17/17 06:59 06:59 06:59 Intake Total 6561 1500 360 Output Total 3045 3255 Balance 3516 -1755 360 Result Diagrams: 09/16/17 05:23 09/16/17 05:23 Phys Exam - Physical Examination Constitutional: NAD HEENT: PERRLA, moist MMs, sclera anicteric Neck: no JVD, supple Respiratory: no wheezing, no rales, no rhonchi Cardiovascular: RRR, no significant murmur, no rub Gastrointestinal: soft, positive bowel sounds distended suprapubic catheter+ Musculoskeletal: no edema, pulses present quadriplegia with contracture Lymphatic: no nodes Psychiatric: normal affect Skin: no rash, normal turgor Dx/Plan (1) Septic shock Code(s): A41.9 - SEPSIS, UNSPECIFIED ORGANISM; R65.21 - SEVERE SEPSIS WITH SEPTIC SHOCK Status: Acute (2) USP-acquired pneumonia Code(s): J18.9 - PNEUMONIA, UNSPECIFIED ORGANISM Status: Acute (3) Cystostomy malfunction Code(s): N99.512 - CYSTOSTOMY MALFUNCTION Status: Resolved (4) Pancytopenia Code(s): D61.818 - OTHER PANCYTOPENIA Status: Acute Comment: due to sepsis (5) Transaminitis Code(s): R74.0 - NONSPEC ELEV OF LEVELS OF TRANSAMNS & LACTIC ACID DEHYDRGNSE Status: Acute Comment: due to sepsis (6) GERD (gastroesophageal reflux disease) Code(s): K21.9 - GASTRO-ESOPHAGEAL REFLUX DISEASE WITHOUT ESOPHAGITIS Status: Chronic (7) Neurogenic bladder Code(s): N31.9 - NEUROMUSCULAR DYSFUNCTION OF BLADDER, UNSPECIFIED Status: Chronic (8) Quadriplegia Code(s): G82.50 - QUADRIPLEGIA, UNSPECIFIED Status: Chronic (9) Seizure disorder Code(s): G40.909 - EPILEPSY, UNSP, NOT INTRACTABLE, WITHOUT STATUS EPILEPTICUS Status: Chronic (10) Chronic constipation Code(s): K59.09 - OTHER CONSTIPATION Status: Chronic (11) Abdominal distension (gaseous) Code(s): R14.0 - ABDOMINAL DISTENSION (GASEOUS) Status: Acute (12) Anemia Code(s): D64.9 - ANEMIA, UNSPECIFIED Status: Acute (13) Bilateral hydronephrosis Code(s): N13.30 - UNSPECIFIED HYDRONEPHROSIS Status: Chronic (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 Review of Systems - Review of Systems Eyes: negative: Pain, Vision Change, Conjunctivae Inflammation, Eyelid Inflammation, Redness, Other ENT: negative: Ear Pain, Ear Discharge, Nose Pain, Nose Discharge, Nose Congestion, Mouth Pain, Mouth Swelling, Throat Pain, Throat Swelling, Other Respiratory: negative: Cough, Dry, Shortness of Breath, Hemoptysis, SOB with Excertion, Pleuritic Pain, Sputum, Wheezing Cardiovascular: negative: chest pain, palpitations, orthopnea, paroxysmal nocturnal dyspnea, edema, light headedness, other Gastrointestinal: negative: Nausea, Vomiting, Abdominal Pain, Diarrhea, Constipation, Melena, Hematochezia, Other Genitourinary: negative: Dysuria, Frequency, Incontinence, Hematuria, Retention , Other Musculoskeletal: negative: Neck Pain, Shoulder Pain, Arm Pain, Back Pain, Hand Pain, Leg Pain, Foot Pain, Other - Medications/Allergies Allergies/Adverse Reactions: Allergies Allergy/AdvReac Type Severity Reaction Status Date / Time No Known Allergies Allergy Verified 09/12/17 20:17 Medications: Current Medications Acetaminophen (Tylenol) 650 mg PO Q4H PRN PRN Reason: Headache/Fever or Pain(2-3) Last Admin: 09/16/17 05:17 Dose: 650 mg Acetaminophen (Tylenol) 325 mg PO Q4H PRN PRN Reason: PAIN(1)/FEVER Al Hydroxide/Mg Hydroxide (Maalox) 15 ml PO Q4H PRN PRN Reason: Heartburn or Indigestion Albuterol/Ipratropium (Duoneb) 3 ml NEB Q4H PRN PRN Reason: SOB/WHEEZE Albuterol/Ipratropium (Duoneb) 3 ml NEB [id number] [facility] Last Admin: 09/16/17 10:32 Dose: 3 ml Artificial Tears (Tears Naturale) 1 - 2 drop EA EYE ASDIR PRN PRN Reason: Dry Eyes Baclofen (Lioresal) 5 mg PO TID [facility] Last Admin: 09/16/17 08:12 Dose: 5 mg Bisacodyl (Dulcolax) 10 mg MI DAILYPRN PRN PRN Reason: Constipation Famotidine (Pepcid) 20 mg SLOW IVP Q12HR PRN PRN Reason: Heartburn or Indigestion Furosemide (Lasix) 20 mg SLOW IVP DAILY [facility] Stop: 09/17/17 09:01 Last Admin: 09/16/17 08:12 Dose: 20 mg Guaifenesin (Robitussin Sf) 200 mg PO Q4H PRN PRN Reason: Cough Guaifenesin (Mucinex) 600 mg PO Q12HR [facility] Last Admin: 09/16/17 08:13 Dose: 600 mg Meropenem 1 gm/ Device 50 mls @ 100 mls/hr IVPB 0100,0900,1700 [facility] Last Admin: 09/16/17 08:11 Dose: 50 mls Vancomycin HCl 1.75 gm/ Sodium (Chloride) 500 mls @ 250 mls/hr IVPB 0400 [facility] Last Admin: 09/16/17 04:56 Dose: 500 mls Magnesium Hydroxide (Milk Of Magnesium) 30 ml PO DAILYPRN PRN PRN Reason: Constipation Midodrine (Proamatine) 5 mg PO BID [facility] Last Admin: 09/16/17 08:12 Dose: 5 mg Mineral Oil/White Petrolatum (Eucerin Cream) 0 gm TOP BIDPRN PRN PRN Reason: Dry Skin Miscellaneous Medication (Pharmacy To Dose) 1 each IVPB PRN PRN PRN Reason: Pharmacy to dose Ondansetron HCl (Zofran) 4 mg IVP Q6H PRN PRN Reason: Nausea/Vomiting Last Admin: 09/11/17 20:16 Dose: 4 mg Ondansetron HCl (Zofran Odt) 4 mg PO Q6H PRN PRN Reason: Nausea/Vomiting Pantoprazole Sodium (Protonix) 40 mg PO DAILY [facility] Last Admin: 09/16/17 08:13 Dose: 40 mg Phenol (Chloraseptic [place] 180 Ml Bot) 0 ml PO PRN PRN PRN Reason: Sore Throat Polyethylene Glycol (Miralax) 17 gm PO BID [facility] Last Admin: 09/16/17 08:13 Dose: 17 gm Potassium Chloride (K-Dur) 40 meq PO TID-[facility] Saccharomyces Boulardii (Florastor) 250 mg PO DAILY [facility] Last Admin: 09/16/17 08:12 Dose: 250 mg Scopolamine (Transderm Scop) 1.5 mg TOP Q3D [facility] Last Admin: 09/14/17 06:39 Dose: 1.5 mg Simethicone (Mylicon Chewable) 80 mg PO BID [facility] Last Admin: 09/16/17 08:13 Dose: 80 mg Sodium Chloride ([place] Nasal [place] 0.65%) 0 ml EA NARE QIDPRN PRN PRN Reason: Nasal Congestion Sodium Chloride (Flush - Normal Saline) 10 ml IVF PRN PRN PRN Reason: Saline Flush Last Admin: 09/16/17 08:13 Dose: 10 ml
[2017-09-16] MEDS: Potassium Chloride 20 MEQ TAB PO SCH ×2 (11:30→16:46)
[2017-09-16] MEDS ORDERED: Magnesium Sulfate 2 GM in Sodium Chloride 0.9% 100 ML IVPB SCH (13:00)
--- NOTE | 2017-09-16 13:06 | PRG ---
DATE OF SERVICE: 09/16/2017 REASON FOR CONSULTATION: Abnormal GI imaging SUBJECTIVE: The patient did well overnight with no acute events or problems. He states that his bel ly has remained around the same size as it was yesterday, but denies any abdominal pain associated wi th it. Currently, denies any nausea, vomiting, fevers, chills, abdominal pain, GI bleeding, odynopha martina, dysphagia, or constipation. He states that he did have a large semi-solid bowel movement yester day and has been able to pass flatus quite frequently since the prior examination yesterday. OBJECTIVE: VITAL SIGNS: Temperature 98.4, pulse 100, blood pressure 160/97, respiratory rate 16, satting 100% o n room air. GENERAL: The patient is lying in bed in no acute distress, alert and oriented x3. CARDIOVASCULAR: Tachycardic rate, but regular rhythm. No discernible murmurs, gallops or rubs. RESPIRATORY: Some coarse crackles in the bilateral lower lung bases, but otherwise clear to ausculta tion bilaterally. ABDOMEN: Some high pitched tingling sounds, primarily heard in the lower abdominal quadrants. Moder ate to severe abdominal distention is again noted that he is mild to moderately tender to palpation. No tenderness to palpation with either light or deep palpation. EXTREMITIES: No cyanosis, clubbing or edema. LABORATORY DATA: CBC with white blood cell count 3.3, hemoglobin 8.5, hematocrit 24.5, platelets 84. Chemistry: Sodium 140, potassium 2.9, chloride 108, carbon dioxide 19, BUN 8, creatinine 0.66, glu cose 63. IMAGING DATA: No current GI imaging is available for review. ASSESSMENT AND PLAN: The patient is a 56-year-old -[place] male with past medical history of quadriplegia with neurogenic bladder, diabetes, orthostatic hypotension, GERD, seizure disorder and chronic constipation presenting with gaseous distention of the sigmoid colon. Abnormal GI imaging. The patient initially presented to the hospital with increased respiratory dist ress with multiple small lesions of the lung consistent with septic emboli. He was treated aggressiv murray and responded well to IV fluids, pressor support and antibiotic administration. However, he did have a CT of the abdomen and pelvis obtained on 08/15/2017 which showed significant gaseous distentio n of the sigmoid colon with the diameter being approximately 10.5 cm in diameter. Upon chart review, he has had intermittent gaseous distention of the sigmoid colon on almost every CT of his abdomen ob tained since 2013. At this point, the most likely reason for his increased colonic distention is his chronic history of constipation and enlargement of the colon to accommodate a larger stool burden ov er time. He is currently responding to more conservative methods being able to have a large semi-reilly id bowel movement yesterday along with able to pass flatus both yesterday and today. At this time, t he likelihood of colonic volvulus, colonic malignancy or obstruction contributing to his imaging find ings is unlikely. RECOMMENDATIONS: 1. Would continue with current bowel regimen of MiraLax twice daily. 2. Would continue simethicone one capful twice daily for gas. 3. Would recommend frequent turning of the patient to facilitate flatus release. 4. We will continue to replete electrolytes to maintain normal electrolytes as needed for colonic co ntraction. 5. Would obtain KUB tomorrow for reassessment of the sigmoid distention. 6. We will hold off on any endoscopic intervention for now. We will continue to follow. Please call with any questions.
--- NOTE | 2017-09-16 13:13 | PRG ---
DATE OF SERVICE: 09/16/2017 SERVICE: Pulmonary Medicine. INTERVAL HISTORY: The patient is doing really well from a respiratory standpoint. He is breathing comfortably. His belly tenderness is improved. He denies any current chest pain, nausea, vomiting, fevers, or chills. Otherwise, there has been no interval change to his condition. He appears to be more comfortable today. PHYSICAL EXAMINATION: VITAL SIGNS: Afebrile, pulse 100, blood pressure 160/97, respirations 16, and saturation 100% on room air. GENERAL: The patient is awake, alert, in no apparent distress. LUNGS: Decent air entry. There is no prolonged expiratory phase, wheezing, rhonchi, or crackles. HEART: Normal rate, regular. ABDOMEN: Soft. Distended. Bowel sounds are present. There is no rebound or guarding present. MUSCULOSKELETAL: No cyanosis or clubbing. The pitting edema is actually little bit better today. He has continued to have persistent scrotal edema. : No Vergara. LABORATORY DATA: WBC 3.3, hemoglobin 8.5, platelets 84,000, and roughly stable. Band count is 13%. INR 1.1. Potassium 2.9, magnesium 1.7, phosphorus 2.6. Urinalysis is unremarkable. C. diff antigen and toxin are negative. Blood cultures x2 are negative. ASSESSMENT: 1. Acute blood loss anemia. 2. Retroperitoneal hematoma, iatrogenic secondary to femoral line placement. 3. Dehydration 4. Quadriplegia. 5. Abdominal distention, improving. 6. Hypokalemia. 7. Hypophosphatemia, resolved. DISCUSSION AND PLAN: We will replace the potassium again. Magnesium is 1.7, which will also be replaced. We will back off on diuretics to once daily. At this point, the patient has no further requirements for inpatient Pulmonary or Critical Care opinion and I will sign off. Please call with additional questions or concerns moving forward. CHAR
[2017-09-17] MEDS: MEROPENEM 1 GM/50 ML 1 GM in Premix Bag 1 BAG IVPB SCH ×3 (00:58→16:32)
[2017-09-17 03:47] LABS: Vancomycin, Trough 13.8 ug/mL
[2017-09-17 03:49] LABS: Anion Gap 14 mmol/L (10-20); BUN (Urea Nitrogen) 8 mg/dL (8.4-25.7); Calc. Creatinine Clearance 151 mL/min (70-130); Calcium 9.7 mg/dL (7.8-10.44); Carbon Dioxide 23 mmol/L (22-29); Chloride 107 mmol/L (98-107); Estimated GFR-MDRD Greater than 90; Glucose 108 mg/dL (70-105); Magnesium 1.9 mg/dL (1.6-2.6); Phosphorus 2.3 mg/dL (2.3-4.7); Potassium 3.5 mmol/L (3.5-5.1); Sodium 140 mmol/L (136-145)
[2017-09-17 04:08] LABS: Band 9 % (5-11); Eosinophils 2 % (0-10); Hemoglobin 9.8 g/dL (14.0-18.0); Lymphocytes 25 % (21-51); MDiff Complete? YES; Mean Corpuscular HGB CONC 35.3 g/dL (32.0-36.0); Mean Corpuscular Hemoglobin 32.1 pg (27.0-31.0); Monocytes 8 % (0-10); Neutrophil 56 % (42-75); PLT Morphology Comment Appears Adequate; Platelet Count 120 thou/uL (130-400); RBC Distribution Width 13.8 % (11.5-14.5); Red Blood Cell (RBC) Count 3.05 mill/uL (4.70-6.10); White Blood Cell (WBC) Count 4.4 thou/uL (4.8-10.8)
[2017-09-17] MEDS: Vancomycin HCl 1.75 GM in Sodium Chloride 0.9% 500 ML IVPB SCH (05:04)
[2017-09-17] MEDS: Scopolamine 1.5 mg/72 hour Patch TOP SCH (05:05)
[2017-09-17 07:15] VITALS: BMI 24.3
[2017-09-17] MEDS: guaiFENesin ER 600 MG TAB PO SCH ×2 (09:29→22:23)
[2017-09-17] MEDS: Potassium Chloride 20 MEQ TAB PO SCH ×3 (09:33→16:30)
[2017-09-17] MEDS: Saccharomyces boulardii 250 MG CAP PO SCH (09:34)
[2017-09-17] MEDS: Baclofen 10 MG TAB PO SCH ×3 (09:34→22:23)
[2017-09-17] MEDS: Midodrine HCl 5 MG TAB PO SCH ×2 (09:35→22:23)
[2017-09-17] MEDS: Polyethylene Glycol 3350 17 GM Packet PO SCH ×2 (09:36→22:24)
[2017-09-17] MEDS: Simethicone Chewable 80 MG TAB PO SCH ×2 (09:36→22:23)
--- NOTE | 2017-09-17 10:58 | RAD ---
TWO VIEWS OF THE ABDOMEN: INDICATION: Sigmoid colon distention. COMPARISON: CT of the abdomen and pelvis dated 09/14/17. IMPRESSION: There are prominent gas-filled loops of colon and small bowel. The extent of the colonic distention is largely stable to the comparison CT dated 10/04/17. There is still a prominent amount of retained stool within portions of the sigmoid colon, ascending colon, and flexures. There is diffuse osteopen ia. The gas-filled loop of sigmoid colon is largely stable and has been stable on a number of repeated CT evaluations. A prominent of retained stool within the colon predominantly in the ascending colon, t ransverse colon, and proximal descending colon is largely stable. POS: MYRA
--- NOTE | 2017-09-17 12:06 | PDOC.PN ---
- Subjective Encounter Start Date: 09/17/17 Encounter Start Time: 09:30 Patient seen and examined. No new complaints. No overnight events - Objective MAR Reviewed: Yes Vital Signs & Weight: Vital Signs (12 hours) Temp Pulse Resp BP Pulse Ox 09/17/17 10:34 92 20 98 09/17/17 08:22 97.1 F L 100 22 H 144/95 H 97 09/17/17 08:00 97.1 F L 100 22 H 96 09/17/17 07:00 100 20 98 09/17/17 05:22 98.6 F 100 16 105/74 97 09/17/17 02:25 103 H 18 100 09/17/17 00:57 99.3 F 112 H 18 153/92 H 95 Weight Admit Weight 164 lb 3.91 oz Weight 164 lb 1.6 oz Most Recent Monitor Data Heart Rate from ECG 106 NIBP 136/94 NIBP BP-Mean 118 Respiration from ECG 22 SpO2 100 I&O: 09/16/17 09/17/17 09/18/17 06:59 06:59 06:59 Intake Total 1500 1180 1020 Output Total 3255 700 Balance -6666 856 2098 Result Diagrams: 09/17/17 03:15 09/17/17 03:15 Phys Exam - Physical Examination Constitutional: NAD HEENT: PERRLA, moist MMs, sclera anicteric Neck: no JVD, supple Respiratory: no wheezing, no rales, no rhonchi Cardiovascular: RRR, no significant murmur, no rub Gastrointestinal: soft, positive bowel sounds gaseous distenstion Musculoskeletal: no edema, pulses present quadriplegia, contracture Psychiatric: normal affect Skin: no rash, normal turgor Dx/Plan (1) Septic shock Code(s): A41.9 - SEPSIS, UNSPECIFIED ORGANISM; R65.21 - SEVERE SEPSIS WITH SEPTIC SHOCK Status: Resolved (2) [facility]-acquired pneumonia Code(s): J18.9 - PNEUMONIA, UNSPECIFIED ORGANISM Status: Acute (3) Cystostomy malfunction Code(s): N99.512 - CYSTOSTOMY MALFUNCTION Status: Resolved (4) Pancytopenia Code(s): D61.818 - OTHER PANCYTOPENIA Status: Acute Comment: due to sepsis (5) Transaminitis Code(s): R74.0 - NONSPEC ELEV OF LEVELS OF TRANSAMNS & LACTIC ACID DEHYDRGNSE Status: Acute Comment: due to sepsis (6) GERD (gastroesophageal reflux disease) Code(s): K21.9 - GASTRO-ESOPHAGEAL REFLUX DISEASE WITHOUT ESOPHAGITIS Status: Chronic (7) Neurogenic bladder Code(s): N31.9 - NEUROMUSCULAR DYSFUNCTION OF BLADDER, UNSPECIFIED Status: Chronic (8) Quadriplegia Code(s): G82.50 - QUADRIPLEGIA, UNSPECIFIED Status: Chronic (9) Seizure disorder Code(s): G40.909 - EPILEPSY, UNSP, NOT INTRACTABLE, WITHOUT STATUS EPILEPTICUS Status: Chronic (10) Chronic constipation Code(s): K59.09 - OTHER CONSTIPATION Status: Chronic (11) Abdominal distension (gaseous) Code(s): R14.0 - ABDOMINAL DISTENSION (GASEOUS) Status: Acute (12) Anemia Code(s): D64.9 - ANEMIA, UNSPECIFIED Status: Acute (13) Bilateral hydronephrosis Code(s): N13.30 - UNSPECIFIED HYDRONEPHROSIS Status: Chronic (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 Review of Systems - Review of Systems ENT: negative: Ear Pain, Ear Discharge, Nose Pain, Nose Discharge, Nose Congestion, Mouth Pain, Mouth Swelling, Throat Pain, Throat Swelling, Other Respiratory: negative: Cough, Dry, Shortness of Breath, Hemoptysis, SOB with Excertion, Pleuritic Pain, Sputum, Wheezing Cardiovascular: negative: chest pain, palpitations, orthopnea, paroxysmal nocturnal dyspnea, edema, light headedness, other Gastrointestinal: negative: Nausea, Vomiting, Abdominal Pain, Diarrhea, Constipation, Melena, Hematochezia, Other Genitourinary: negative: Dysuria, Frequency, Incontinence, Hematuria, Retention , Other Musculoskeletal: negative: Neck Pain, Shoulder Pain, Arm Pain, Back Pain, Hand Pain, Leg Pain, Foot Pain, Other - Medications/Allergies Allergies/Adverse Reactions: Allergies Allergy/AdvReac Type Severity Reaction Status Date / Time No Known Allergies Allergy Verified 09/12/17 20:17 Medications: Current Medications Acetaminophen (Tylenol) 650 mg PO Q4H PRN PRN Reason: Headache/Fever or Pain(2-3) Last Admin: 09/16/17 21:16 Dose: 650 mg Acetaminophen (Tylenol) 325 mg PO Q4H PRN PRN Reason: PAIN(1)/FEVER Al Hydroxide/Mg Hydroxide (Maalox) 15 ml PO Q4H PRN PRN Reason: Heartburn or Indigestion Albuterol/Ipratropium (Duoneb) 3 ml NEB Q4H PRN PRN Reason: SOB/WHEEZE Albuterol/Ipratropium (Duoneb) 3 ml NEB [id number] [facility] Last Admin: 09/17/17 10:34 Dose: 3 ml Artificial Tears (Tears Naturale) 1 - 2 drop EA EYE ASDIR PRN PRN Reason: Dry Eyes Baclofen (Lioresal) 5 mg PO TID [facility] Last Admin: 09/17/17 09:34 Dose: 5 mg Bisacodyl (Dulcolax) 10 mg [place] DAILYPRN PRN PRN Reason: Constipation Famotidine (Pepcid) 20 mg SLOW IVP Q12HR PRN PRN Reason: Heartburn or Indigestion Guaifenesin (Robitussin Sf) 200 mg PO Q4H PRN PRN Reason: Cough Guaifenesin (Mucinex) 600 mg PO Q12HR [facility] Last Admin: 09/17/17 09:29 Dose: 600 mg Meropenem 1 gm/ Device 50 mls @ 100 mls/hr IVPB 0100,0900,1700 [facility] Last Admin: 09/17/17 09:35 Dose: 50 mls Vancomycin HCl 1.75 gm/ Sodium (Chloride) 500 mls @ 250 mls/hr IVPB 0400 [facility] Last Admin: 09/17/17 05:04 Dose: 500 mls Magnesium Hydroxide (Milk Of Magnesium) 30 ml PO DAILYPRN PRN PRN Reason: Constipation Midodrine (Proamatine) 5 mg PO BID [facility] Last Admin: 09/17/17 09:35 Dose: 5 mg Mineral Oil/White Petrolatum (Eucerin Cream) 0 gm TOP BIDPRN PRN PRN Reason: Dry Skin Miscellaneous Medication (Pharmacy To Dose) 1 each IVPB PRN PRN PRN Reason: Pharmacy to dose Ondansetron HCl (Zofran) 4 mg IVP Q6H PRN PRN Reason: Nausea/Vomiting Last Admin: 09/11/17 20:16 Dose: 4 mg Ondansetron HCl (Zofran Odt) 4 mg PO Q6H PRN PRN Reason: Nausea/Vomiting Pantoprazole Sodium (Protonix) 40 mg PO DAILY [facility] Last Admin: 09/17/17 09:33 Dose: 40 mg Phenol (Chloraseptic [place] 180 Ml Bot) 0 ml PO PRN PRN PRN Reason: Sore Throat Polyethylene Glycol (Miralax) 17 gm PO BID [facility] Last Admin: 09/17/17 09:36 Dose: Not Given Potassium Chloride (K-Dur) 40 meq PO TID-WM [facility] Last Admin: 09/17/17 09:33 Dose: 40 meq Saccharomyces Boulardii (Florastor) 250 mg PO DAILY [facility] Last Admin: 09/17/17 09:34 Dose: 250 mg Scopolamine (Transderm Scop) 1.5 mg TOP Q3D [facility] Last Admin: 09/17/17 05:05 Dose: 1.5 mg Simethicone (Mylicon Chewable) 80 mg PO BID [facility] Last Admin: 09/17/17 09:36 Dose: 80 mg Sodium Chloride ([place] Nasal [place] 0.65%) 0 ml EA NARE QIDPRN PRN PRN Reason: Nasal Congestion Sodium Chloride (Flush - Normal Saline) 10 ml IVF PRN PRN PRN Reason: Saline Flush Last Admin: 09/16/17 08:13 Dose: 10 ml
--- NOTE | 2017-09-17 13:22 | PRG ---
DATE OF SERVICE: 09/17/2017 REASON FOR CONSULTATION: Abnormal GI imaging. SUBJECTIVE: The patient is doing well today with no acute events or problems overnight. He states t hat his abdomen is around the same size as it was yesterday subjectively, but denies any abdominal pa in associated with this. He did have a large bowel movement yesterday and has been passing a fair am ount of flatus with positional changes within the last 24-48 hours. Currently, denies any nausea, vo miting, fevers, chills, abdominal pain, GI bleeding, odynophagia, dysphagia or constipation. OBJECTIVE: VITAL SIGNS: Temperature 97.1, pulse 92, blood pressure 144/95, respiratory rate 20, satting 98% on room air. GENERAL: The patient is lying in bed, in no acute distress, alert and oriented x3. HEART: Regular rate and rhythm with no discernible murmurs, gallops or rubs. RESPIRATORY: Clear to auscultation bilaterally. ABDOMEN: Some high pitched tinkling sounds heard primarily in the lower abdominal quadrants. Modera te abdominal distention and again noted, but is soft to palpation (improved from previous examination s). No tenderness to palpation with either light or deep palpation. EXTREMITIES: No cyanosis, clubbing or edema. LABORATORY DATA: CBC with a white blood cell count of 4.4, hemoglobin 9.8, hematocrit 27.8, platelet s 120. Chemistry with a sodium of 140, potassium 3.5, chloride 107, CO2 23, BUN 8, creatinine 0.66, glucose 108. IMAGING DATA: KUB performed on 09/17/2017 showed prominent gas filled loops of the colon and small b owel. The extent of the colonic distention is largely stable when compared to the CT dated 8. There is still a prominent amount of retained stool within portions of the sigmoid colon, ascendi ng colon and flexures. Of note, the gas filled loop of sigmoid colon is largely stable and has been stable on a number of repeated CT evaluations. ASSESSMENT: The patient is a 56-year-old male with past medical history of quadripl egia with neurogenic bladder, diabetes, orthostatic hypotension, gastroesophageal reflux disease, sei zure disorder, chronic constipation, presenting with gaseous distention of the sigmoid colon. Abnormal GI imaging: The patient initially presented to the hospital with increased respiratory dist ress concerning for septic shock and responded well to administration of IV fluids, pressor support a nd antibiotic administration. However, CT of the abdomen and pelvis obtained on 09/04/2017 shows sig nificant gaseous distention of the sigmoid colon with the diameter being approximately 10.5 cm in donnell meter. Repeat imaging performed today has not shown any significant either worsening or improvement of this particular finding with stable findings seen on prior imaging dating back to 2013. At this p oint, the most likely reason for his increased colonic distention, he has a chronic history of consti pation and enlargement of the colon to accommodate a larger stool burden versus acute critical illnes s causing a functional colonic ileus, which has manifested itself as gaseous distention of the sigmoi d colon secondary to conformational change from chronic constipation. At this point, he is currently asymptomatic from this particular condition and will likely resolve with more conservative managemen t like he has done in the past. RECOMMENDATIONS: 1. We would continue with current bowel regimen with MiraLax twice daily as well as simethicone 1 ca pful twice daily. 2. We would recommend frequent turning of the patient to facilitate flatus release. 3. Continue to replete electrolytes to maintain normal chemistry as needed for colonic contraction. We will sign off at this time. Please call with any additional questions.
[2017-09-17] MEDS: Acetaminophen 325 MG TAB PO PRN (22:23)
[2017-09-18] MEDS: MEROPENEM 1 GM/50 ML 1 GM in Premix Bag 1 BAG IVPB SCH ×2 (01:55→11:17)
[2017-09-18] MEDS: Acetaminophen 325 MG TAB PO PRN (03:28)
[2017-09-18] MEDS: Vancomycin HCl 1.75 GM in Sodium Chloride 0.9% 500 ML IVPB SCH (04:56)
[2017-09-18] MEDS: Midodrine HCl 5 MG TAB PO SCH (08:51)
[2017-09-18] MEDS: Baclofen 10 MG TAB PO SCH (08:52)
[2017-09-18] MEDS: Potassium Chloride 20 MEQ TAB PO SCH (08:52)
[2017-09-18] MEDS: Saccharomyces boulardii 250 MG CAP PO SCH (08:52)
[2017-09-18] MEDS: guaiFENesin ER 600 MG TAB PO SCH (08:52)
[2017-09-18] MEDS: Simethicone Chewable 80 MG TAB PO SCH (08:53)
[2017-09-18] MEDS: Polyethylene Glycol 3350 17 GM Packet PO SCH (08:53)
--- NOTE | 2017-09-18 10:04 | PDOC.PN ---
- Subjective Encounter Start Date: 09/18/17 Encounter Start Time: 08:10 Patient seen and examined. No new complaints. No overnight events - Objective MAR Reviewed: Yes Vital Signs & Weight: Vital Signs (12 hours) Temp Pulse Resp BP Pulse Ox 09/18/17 07:58 98.6 F 92 14 102/70 98 09/18/17 06:24 92 16 98 09/18/17 04:55 98.8 F 156/95 H 09/18/17 04:30 98.8 F 92 18 161/105 H 98 09/18/17 01:19 94 L 09/18/17 00:20 100.3 F H 92 18 124/83 98 Weight Admit Weight 164 lb 3.91 oz Weight 164 lb 1.6 oz Most Recent Monitor Data Heart Rate from ECG 106 NIBP 136/94 NIBP BP-Mean 118 Respiration from ECG 22 SpO2 100 I&O: 09/17/17 09/18/17 09/19/17 06:59 06:59 06:59 Intake Total 1180 1500 Output Total 700 Balance 480 1500 Result Diagrams: 09/17/17 03:15 09/17/17 03:15 Phys Exam - Physical Examination Constitutional: NAD HEENT: PERRLA, moist MMs, sclera anicteric Neck: no JVD, supple Respiratory: no wheezing, no rales, no rhonchi Cardiovascular: RRR, no significant murmur, no rub Gastrointestinal: soft, non-tender, positive bowel sounds baseline distenstion Musculoskeletal: no edema, pulses present quadriplegia with contracture Psychiatric: normal affect Skin: no rash, normal turgor Dx/Plan (1) Septic shock Code(s): A41.9 - SEPSIS, UNSPECIFIED ORGANISM; R65.21 - SEVERE SEPSIS WITH SEPTIC SHOCK Status: Resolved (2) care home-acquired pneumonia Code(s): J18.9 - PNEUMONIA, UNSPECIFIED ORGANISM Status: Acute (3) Cystostomy malfunction Code(s): N99.512 - CYSTOSTOMY MALFUNCTION Status: Resolved (4) Pancytopenia Code(s): D61.818 - OTHER PANCYTOPENIA Status: Acute Comment: due to sepsis (5) Transaminitis Code(s): R74.0 - NONSPEC ELEV OF LEVELS OF TRANSAMNS & LACTIC ACID DEHYDRGNSE Status: Acute Comment: due to sepsis (6) GERD (gastroesophageal reflux disease) Code(s): K21.9 - GASTRO-ESOPHAGEAL REFLUX DISEASE WITHOUT ESOPHAGITIS Status: Chronic (7) Neurogenic bladder Code(s): N31.9 - NEUROMUSCULAR DYSFUNCTION OF BLADDER, UNSPECIFIED Status: Chronic (8) Quadriplegia Code(s): G82.50 - QUADRIPLEGIA, UNSPECIFIED Status: Chronic (9) Seizure disorder Code(s): G40.909 - EPILEPSY, UNSP, NOT INTRACTABLE, WITHOUT STATUS EPILEPTICUS Status: Chronic (10) Chronic constipation Code(s): K59.09 - OTHER CONSTIPATION Status: Chronic (11) Abdominal distension (gaseous) Code(s): R14.0 - ABDOMINAL DISTENSION (GASEOUS) Status: Acute (12) Anemia Code(s): D64.9 - ANEMIA, UNSPECIFIED Status: Acute (13) Bilateral hydronephrosis Code(s): N13.30 - UNSPECIFIED HYDRONEPHROSIS Status: Chronic (14) [place]'s syndrome Code(s): K59.8 - OTHER SPECIFIED FUNCTIONAL INTESTINAL DISORDERS Status: Suspected (15) Hypokalemia Code(s): E87.6 - HYPOKALEMIA Status: Resolved (16) Hypophosphatemia Code(s): E83.39 - OTHER DISORDERS OF PHOSPHORUS METABOLISM Status: Resolved - Plan cont current plan of care, continue antibiotics * medication reviewed as below * symptomatic treatment * stable for discharge * see discharge summery * discharge medication reconciliation done. * paper work done Review of Systems - Review of Systems ENT: negative: Ear Pain, Ear Discharge, Nose Pain, Nose Discharge, Nose Congestion, Mouth Pain, Mouth Swelling, Throat Pain, Throat Swelling, Other Respiratory: negative: Cough, Dry, Shortness of Breath, Hemoptysis, SOB with Excertion, Pleuritic Pain, Sputum, Wheezing Cardiovascular: negative: chest pain, palpitations, orthopnea, paroxysmal nocturnal dyspnea, edema, light headedness, other Gastrointestinal: negative: Nausea, Vomiting, Abdominal Pain, Diarrhea, Constipation, Melena, Hematochezia, Other Genitourinary: negative: Dysuria, Frequency, Incontinence, Hematuria, Retention , Other Musculoskeletal: negative: Neck Pain, Shoulder Pain, Arm Pain, Back Pain, Hand Pain, Leg Pain, Foot Pain, Other - Medications/Allergies Allergies/Adverse Reactions: Allergies Allergy/AdvReac Type Severity Reaction Status Date / Time No Known Allergies Allergy Verified 09/12/17 20:17 Medications: Current Medications Acetaminophen (Tylenol) 650 mg PO Q4H PRN PRN Reason: Headache/Fever or Pain(2-3) Last Admin: 09/18/17 03:28 Dose: 650 mg Acetaminophen (Tylenol) 325 mg PO Q4H PRN PRN Reason: PAIN(1)/FEVER Al Hydroxide/Mg Hydroxide (Maalox) 15 ml PO Q4H PRN PRN Reason: Heartburn or Indigestion Albuterol/Ipratropium (Duoneb) 3 ml NEB Q4H PRN PRN Reason: SOB/WHEEZE Albuterol/Ipratropium (Duoneb) 3 ml NEB [id number] [facility] Last Admin: 09/18/17 06:24 Dose: 3 ml Artificial Tears (Tears Naturale) 1 - 2 drop EA EYE ASDIR PRN PRN Reason: Dry Eyes Baclofen (Lioresal) 5 mg PO TID [facility] Last Admin: 09/18/17 08:52 Dose: 5 mg Bisacodyl (Dulcolax) 10 mg [place] DAILYPRN PRN PRN Reason: Constipation Famotidine (Pepcid) 20 mg SLOW IVP Q12HR PRN PRN Reason: Heartburn or Indigestion Guaifenesin (Robitussin Sf) 200 mg PO Q4H PRN PRN Reason: Cough Guaifenesin (Mucinex) 600 mg PO Q12HR [facility] Last Admin: 09/18/17 08:52 Dose: 600 mg Meropenem 1 gm/ Device 50 mls @ 100 mls/hr IVPB 0100,0900,1700 [facility] Last Admin: 09/18/17 01:55 Dose: 50 mls Vancomycin HCl 1.75 gm/ Sodium (Chloride) 500 mls @ 250 mls/hr IVPB 0400 [facility] Last Admin: 09/18/17 04:56 Dose: 500 mls Magnesium Hydroxide (Milk Of Magnesium) 30 ml PO DAILYPRN PRN PRN Reason: Constipation Midodrine (Proamatine) 5 mg PO BID [facility] Last Admin: 09/18/17 08:51 Dose: 5 mg Mineral Oil/White Petrolatum (Eucerin Cream) 0 gm TOP BIDPRN PRN PRN Reason: Dry Skin Miscellaneous Medication (Pharmacy To Dose) 1 each IVPB PRN PRN PRN Reason: Pharmacy to dose Ondansetron HCl (Zofran) 4 mg IVP Q6H PRN PRN Reason: Nausea/Vomiting Last Admin: 09/11/17 20:16 Dose: 4 mg Ondansetron HCl (Zofran Odt) 4 mg PO Q6H PRN PRN Reason: Nausea/Vomiting Pantoprazole Sodium (Protonix) 40 mg PO DAILY [facility] Last Admin: 09/18/17 08:52 Dose: 40 mg Phenol (Chloraseptic [place] 180 Ml Bot) 0 ml PO PRN PRN PRN Reason: Sore Throat Polyethylene Glycol (Miralax) 17 gm PO BID [facility] Last Admin: 09/18/17 08:53 Dose: 17 gm Potassium Chloride (K-Dur) 40 meq PO TID-[facility] Last Admin: 09/18/17 08:52 Dose: 40 meq Saccharomyces Boulardii (Florastor) 250 mg PO DAILY [facility] Last Admin: 09/18/17 08:52 Dose: 250 mg Scopolamine (Transderm Scop) 1.5 mg TOP Q3D [facility] Last Admin: 09/17/17 05:05 Dose: 1.5 mg Simethicone (Mylicon Chewable) 80 mg PO BID [facility] Last Admin: 09/18/17 08:53 Dose: 80 mg Sodium Chloride ([place] Nasal [place] 0.65%) 0 ml EA NARE QIDPRN PRN PRN Reason: Nasal Congestion Sodium Chloride (Flush - Normal Saline) 10 ml IVF PRN PRN PRN Reason: Saline Flush Last Admin: 09/16/17 08:13 Dose: 10 ml
[2017-09-18 11:23] VITALS: BP 126/83; TEMP 98.7
--- NOTE | 2017-09-18 11:38 | DIS ---
PRIMARY CARE PHYSICIAN: Dr. Amirah Forbes M.D. DATE OF ADMISSION: 09/11/2017 DATE OF DISCHARGE: 09/18/2017 DISCHARGE DISPOSITION: alf home. PRIMARY DISCHARGE DIAGNOSES: 1. Septic shock, improved. 2. Hypophosphatemia, corrected. 3. Hypokalemia, corrected. 4. Cystostomy malfunction, corrected. 5. intermediate acquired pneumonia. 6. Pancytopenia and transaminitis due to sepsis. 7. 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 8. Acute anemia, required blood transfusion. SECONDARY DISCHARGE DIAGNOSES: Quadriplegia with a contracture, chronic suprapubic catheter, bilater al hydronephrosis, chronic constipation, chronic abdominal distension, neurogenic bladder, gastroesop hageal reflux disease. PRIMARY PROCEDURE/OPERATION: Central line placement, cystostomy tube exchange, Fleet enema. RADIOLOGICAL INVESTIGATION: Chest x-ray showed multifocal pulmonary nodule. CT angiography, no PE, but showed multiple nodular infiltration. Echocardiography showed no vegetation. Abdomen and pelvis CT scan showed gaseous distention of large colon Abdomen x-ray showed chronic finding. SIGNIFICANT LABORATORY DATA: WBC 4.4, hemoglobin 9.8, platelet 120. INR 1.1. D-dimer 0.57. Sodium 140, potassium 3.5, BUN 8, creatinine 0.66, calcium 9.7, phosphorus 2.3, magnesium 1.9. Urinalysis suggestive of UTI. Blood culture negative. C. diff negative. DISCHARGE MEDICATIONS: Baclofen 10 mg p.o. t.i.d., Colace 100 mg p.o. b.i.d., midodrine 10 mg p.o. t .i.d., MiraLax 17 grams p.o. b.i.d., Florastor 250 mg p.o. daily, simethicone 80 mg p.o. b.i.d., Leva brenda 500 mg p.o. daily for 5 more days. CONTRAINDICATIONS: None. CODE STATUS: FULL CODE. INPATIENT CONSULTANTS: The patient was admitted in CCU. At that point Dr. Vásquez and pulmonary group was following for critical care illness. Dr. Curtis was consulted for cystostomy malfunction. Dr. Oli Rizzo was consulted for of gaseous abdominal distention. TEST RESULTS PENDING ON DISCHARGE: None. ALLERGIES: No known drug allergy. DISCHARGE PLAN: Post hospital, the patient will be discharged back to half-way. HOSPITAL COURSE: A 56-year-old male who was admitted by me on 09/11/2017. Please see my HPI for fur ther detail. The patient was living at half-way and he was having cough, dyspnea, and he was hav ing gurgling sound in his throat and chest. He was suspected for pneumonia. These symptoms started very acutely at half-way. We suspected half-way acquired pneumonia. In the emergency room, he was initially stable, but he had hypotension, required vasopressor support. He was in septic shock and that is why he was treated with Levophed drip while in the ICU. He was given broad spectrum antibiotic therapy with meropenem and vancomycin. At CCU the patient was followed by pulmonary group for critical care illness. While in CCU the patie nt had developed abdominal distention, which we suspected from [place] syndrome. We did a CT of the abdomen and pelvis which did not show any obstruction. The patient was evaluated by gastroenterologi st and they recommended to discontinue lactulose because of tendency to develop gas with lactulose an d instead we started MiraLax and other stool softener. He was given Fleet enema. Subsequently he rankin d diarrhea and stool was negative for an infection. Slowly the patient's Levophed drip support was not requiring and he was maintaining his blood pressur e without any support. His IV fluid was discontinued. He developed slight overload of fluid and joie t is why he was given Lasix. After that he had abnormal electrolytes with potassium and phosphorus w as low, which was replaced while in hospital. By the time of discharge, his electrolytes are normal. On admission, he also had a cystostomy tube malfunction, that is why Dr. Curtis saw him and the cy stotomy tube was exchanged. He will follow up with Dr. Curtis as an outpatient basis periodically f or cystostomy tube exchange. The patient is up to his baseline level. All previous medications will be continued upon discharge. The patient is afebrile and hemodynamically stable. His abdomen condition is also stable. This pat ient is at high risk for recurrent admission because of bed bound status. The patient is seen and examined at bedside today. Please see my progress note from today for furthe r detail. Paperwork for discharge done. Discharge medication reconciliation done. Total time spent on discharge day 32 minutes.
== END 2017-09-18 11:32 | DRG 871 ==
LOC: ERS 00:55 → CCU 06:27 → T4-B 09-15 12:25
PROVIDERS: ADMIT Hospitalist; ATTEND Hospitalist
PROC: 0T2BX0Z Change Drainage Device in Bladder, External Approach (ICD-10-PCS; principal; 2017-09-11)
PROC: 3E033XZ Introduction of Vasopressor into Peripheral Vein, Percutaneous Approach (ICD-10-PCS; 2017-09-11)
PROC: 06HM33Z Insertion of Infusion Device into Right Femoral Vein, Percutaneous Approach (ICD-10-PCS; 2017-09-11)
PROC: 30233N1 Transfusion of Nonautologous Red Blood Cells into Peripheral Vein, Percutaneous Approach (ICD-10-PCS; 2017-09-14)
DX: A41.9 Sepsis, unspecified organism (principal); J96.01 Acute respiratory failure with hypoxia; R65.21 Severe sepsis with septic shock; G82.50 Quadriplegia, unspecified; J18.9 Pneumonia, unspecified organism; I26.90 Septic pulmonary embolism without acute cor pulmonale; D61.818 Other pancytopenia; T83.090A Other mechanical complication of cystostomy catheter, initial encounter; I97.621 Postprocedural hematoma of a circulatory system organ or structure following other procedure; D62 Acute posthemorrhagic anemia; N13.39 Other hydronephrosis; K59.8 Other specified functional intestinal disorders; E86.0 Dehydration; E87.6 Hypokalemia; E83.39 Other disorders of phosphorus metabolism; R74.0 Nonspecific elevation of levels of transaminase and lactic acid dehydrogenase [LDH]; N31.9 Neuromuscular dysfunction of bladder, unspecified; L89.620 Pressure ulcer of left heel, unstageable; L89.610 Pressure ulcer of right heel, unstageable; K21.9 Gastro-esophageal reflux disease without esophagitis; K59.09 Other constipation; E11.9 Type 2 diabetes mellitus without complications; G40.909 Epilepsy, unspecified, not intractable, without status epilepticus; Z93.1 Gastrostomy status; Y95 Nosocomial condition; Y83.3 Surgical operation with formation of external stoma as the cause of abnormal reaction of the patient, or of later complication, without mention of misadventure at the time of the procedure
CPT/HCPCS: 36415; 36430; 36556; 51702; 71045; 71275; 74019; 74177; 80048; 80053; 80202; 81003; 81015; 82533; 82550; 82553; 83010; 83605; 83615; 83690; 83735; 83880; 84100; 84484; 85007; 85025; 85027; 85049; 85060; 85300; 85362; 85379; 85384; 85610; 85730; 86850; 86900; 86901; 87040; 87324; 87449; 93005; 93010; 93306; 96365; 96368; J1650; J1940; J1956; J2185; J2405; J3370; J3475; J3480; J7050; J7620; P9016; P9047

== ENCOUNTER 2017-09-25 07:57 | Emergency (ER) | payer MEDICARE, MEDICAID ==
--- NOTE | 2017-09-25 09:33 | ULT ---
DOPPLER VENOUS ULTRASOUND OF THE RIGHT LOWER EXTREMITY: INDICATION: Right lower extremity edema for 1 day. TECHNIQUE: Boss scale, color Doppler, and vascular duplex with spectral analysis was performed of the deep venou s structures of both lower extremities. The common femoral vein, superficial femoral vein, popliteal vein, posterior tibial vein, proximal greater saphenous, and proximal profunda veins were assessed bi laterally. FINDINGS: The right common femoral vein, greater saphenous vein, proximal superficial femoral vein, profunda ve in, and popliteal vein demonstrate normal compression and flow. There is limited visualization of th e mid to distal right femoral vein due to the patient's body habitus and muscle spasm. There is inco mplete compression of the mid to distal right superficial femoral vein with slightly diminished flow. Partially occlusive thrombus within this location cannot be entirely excluded. The posterior tibia l veins were not well seen. Edema is noted within the right foreleg. IMPRESSION: 1. Limited compressibility and flow within the mid to distal right superficial femoral vein is suspi cious for underlying partially occlusive thrombus. There was limited visualization of this region du e to patient's body habitus and muscle spasms within the right leg. 2. No evidence of deep venous thrombosis within the right common femoral vein, proximal greater saph enous vein, proximal superficial femoral vein, proximal profunda vein, or right popliteal vein. 3. Limited visualization of the posterior tibial veins. POS: [facility]
== END 2017-09-25 10:22 | disposition home or self-care (01) ==
LOC: ERS 07:57
DX: I82.401 Acute embolism and thrombosis of unspecified deep veins of right lower extremity (principal); I95.9 Hypotension, unspecified; G47.30 Sleep apnea, unspecified; E11.9 Type 2 diabetes mellitus without complications; F32.9 Major depressive disorder, single episode, unspecified; K21.9 Gastro-esophageal reflux disease without esophagitis; Z79.899 Other long term (current) drug therapy; W01.190A Fall on same level from slipping, tripping and stumbling with subsequent striking against furniture, initial encounter

== ENCOUNTER 2017-10-18 21:07 | Inpatient (IN) | payer MEDICARE, MEDICAID ==
[2017-10-18 22:36] LABS: Bilirubin Negative (Negative); Blood, Urine Moderate (Negative); Clarity CLOUDY (Clear); Glucose, Urine (Dipstick) 100 mg/dL (Negative); Leukocyte Large (Negative); Nitrite Negative (Negative); Protein, Urine (Dipstick) 30 mg/dL (Neg-Trace); Specific Gravity, Urine 1.008 (1.002-1.036)
[2017-10-18 22:37] LABS: Bacteria/HPF 4+ HPF (None Seen); Hyaline Casts/LPF 0-3 HYALINE CAST LPF (0-3 Hyaline); Pathc Cast-AUWi Flag 0.29 (0-2.49); Squamous Epithelial None Seen HPF (0-3)
[2017-10-18 22:39] LABS: Yeast-AUWi Flag 48.8 (0-25.0)
--- NOTE | 2017-10-18 22:49 | RAD ---
FRONTAL RADIOGRAPH CHEST: Date: 10-18-17 Comparison: 09-11-17 History: Fever. FINDINGS: There is no pneumothorax or pleural fluid. No focal consolidation or alveolar edema. There is mild pu lmonary vascular prominence. The osseous structures are stable. IMPRESSION: No focal consolidation or alveolar edema. POS: [facility]
[2017-10-18] MEDS ORDERED: Acetaminophen 325 MG Suppository ONE (23:32)
[2017-10-18] MEDS ORDERED: Acetaminophen 325 MG TAB ONE (23:34)
[2017-10-18 23:35] LABS: #Eosinphils 0.1 thou/uL (0.0-0.7); #Lymphocytes 0.8 thou/uL (1.20-3.40); #Monocytes 0.7 thou/uL (0.11-0.59); #Neutrophils 7.3 thou/uL (1.40-6.50); %Basophils 0.5 % (0.0-1.0); %Eosinophils 1.2 % (0.0-10.0); %Lymphocytes 8.7 % (21.0-51.0); %Monocytes 8.3 % (0.0-10.0); %Neutrophils 81.4 % (42.0-75.0); Mean Corpuscular HGB CONC 35.4 g/dL (32.0-36.0); Mean Corpuscular Hemoglobin 31.9 pg (27.0-31.0); Mean Corpuscular Volume 90.3 fL (78.0-98.0); Mean Platelet Volume 7.6 fL (7.4-10.4); Platelet Count 239 thou/uL (130-400); RBC Distribution Width 13.5 % (11.5-14.5); Red Blood Cell (RBC) Count 4.08 mill/uL (4.70-6.10); White Blood Cell (WBC) Count 8.9 thou/uL (4.8-10.8)
[2017-10-18 23:43] LABS: ALT (SGPT) 26 U/L (8-55); AST (SGOT) 29 U/L (5-34); Albumin 3.7 g/dL (3.5-5.0); Alkaline Phosphatase 51 U/L (40-150); Anion Gap 16 mmol/L (10-20); BUN (Urea Nitrogen) 21 mg/dL (8.4-25.7); Bilirubin, Total 0.8 mg/dL (0.2-1.2); Calc. Creatinine Clearance 0 mL/min (70-130); Calcium 9.4 mg/dL (7.8-10.44); Carbon Dioxide 25 mmol/L (22-29); Chloride 98 mmol/L (98-107); Estimated GFR-MDRD Greater than 90; Globulin 4.9 g/dL (2.4-3.5); Glucose 119 mg/dL (70-105); Potassium 3.4 mmol/L (3.5-5.1); Protein, Total 8.6 g/dL (6.0-8.3); Sodium 136 mmol/L (136-145)
[2017-10-18] MEDS ORDERED: MEROPENEM 1 GM/50 ML 1 GM in Premix Bag 1 BAG IVPB SCH (23:45)
[2017-10-19] MEDS ORDERED: Gentamicin 80 MG/2 ML VIAL FS SCH (00:15)
[2017-10-19 02:35] VITALS: BMI 20.3
[2017-10-19] MEDS ORDERED: Acetaminophen 325 MG TAB PO PRN (02:36)
[2017-10-19] MEDS ORDERED: HumaLOG 300 UNITS/3 ML VIAL SC PRN ×2 (17:22)
[2017-10-19] MEDS ORDERED: Acetaminophen 500 MG TAB PO PRN (17:22)
[2017-10-19] MEDS ORDERED: Dextrose 50% Abboject 50 ML SYRINGE SLOW IVP PRN (17:22)
[2017-10-19] MEDS ORDERED: Sodium Chloride 0.9% 1,000 ML IV SCH ×2 (17:22→19:30)
[2017-10-19] MEDS ORDERED: cloNIDine 0.1 MG TAB PO PRN (17:22)
[2017-10-19] MEDS ORDERED: hydrALAZINE 20 MG/ML VIAL SLOW IVP PRN (17:22)
[2017-10-19] MEDS ORDERED: Ondansetron HCl/PF 4 MG/2 ML Vial IVP PRN (17:22)
[2017-10-19] MEDS ORDERED: Dextrose 5% in Water 1,000 ML IV PRN (17:22)
[2017-10-19] MEDS ORDERED: Ondansetron ODT 4 MG TAB PO PRN (17:22)
[2017-10-19] MEDS ORDERED: Meropenem 2 GM in Admixture Fee 1 EACH IVPB SCH (18:00)
[2017-10-19] MEDS: cefTRIAXone\\ROCEPHIN 2 GM in Sodium Chloride 0.9% 100 ML IVPB SCH (18:28)
[2017-10-19] MEDS: Meropenem 2 GM in Sodium Chloride 0.9% 100 ML IVPB SCH ×2 (20:07→20:40)
[2017-10-19] MEDS: Sodium Chloride 0.9% 1,000 ML IV SCH (20:11)
[2017-10-19] MEDS: Polyethylene Glycol 3350 17 GM Packet PO SCH (20:13)
[2017-10-19] MEDS: Midodrine HCl 5 MG TAB PO SCH (20:13)
[2017-10-19] MEDS: Baclofen 10 MG TAB PO SCH (20:13)
[2017-10-19] MEDS: Docusate 100 MG CAP PO SCH (20:14)
[2017-10-19] MEDS: Famotidine 20 MG TAB PO SCH (20:14)
[2017-10-19] MEDS: Simethicone Chewable 80 MG TAB PO SCH (20:41)
[2017-10-19] MEDS ORDERED: Non-Formulary Item 1 EACH (Midodrine Hcl [Midodrine Hcl] 10 MG) PO SCH (21:00)
--- NOTE | 2017-10-19 21:20 | HP ---
DATE OF ADMISSION: 10/19/2017 PRIMARY CARE PROVIDER: Dr. Amirah Forbes. CHIEF COMPLAINT: Leaking suprapubic tube. HISTORY OF PRESENT ILLNESS: This is a 57-year-old -Greenlandic male, who presents to [facility] in transfer from [facility] where patient is a long-ter m resident, who was noted with leaking around the chronic suprapubic catheter the patient has after p lacement for neurogenic bladder. The patient with significant history of quadriplegia with neurogeni c bowel and bladder function. The patient states his suprapubic catheter was last exchanged in 09/25 18 after an admission to [facility] for septic shock likely secondarily to pneumonia and uri ne infection. The patient noted feeling wet after being changed the evening before at the [facility] and became concerned that his catheter was malfunctioning. The patient denied any hem aturia, blood in the stool, nausea, vomiting or fever. The patient denies any change to his chronic medication regimen and states he has been compliant due to living at [facility]. In the emergency room, the patient underwent general evaluation, receiving IV gentamicin, meropen em, and intravenous normal saline. The patient was treated for suspicion of urinary tract infection after purulent drainage was noted around the suprapubic catheter on exam. The patient denies any spe cific increased cough, documented fever, abdominal discomfort or diarrhea. PAST MEDICAL HISTORY: 1. Quadriplegia with neurogenic bladder and bowel. 2. Chronic indwelling suprapubic catheter. 3. History of septic shock secondary to urinary tract infection and pneumonia. 4. 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 5. Chronic constipation. 6. Gastroesophageal reflux disease. 7. Question of diabetes mellitus, type 2, diet managed. 8. Chronic orthostatic hypotension. PAST SURGICAL HISTORY: 1. Status post cervical spine fusion. 2. Status post colonoscopy. 3. Status post EGD and PEG tube placement with subsequent removal. 4. Status post post-tracheostomy with subsequent removal. CURRENT MEDICATIONS: 1. Baclofen 20 mg p.o. t.i.d. 2. Colace 100 mg p.o. b.i.d. 3. Midodrine 10 mg p.o. t.i.d. 4. MiraLax 17 grams p.o. b.i.d. 5. Simethicone 80 mg p.o. b.i.d. ALLERGIES: No known drug allergies. SOCIAL HISTORY: The patient resides in [place], [place] at [facility]. Originall y from [place]. No current alcohol, tobacco or illicit drug use. FAMILY HISTORY: No inheritable diseases per patient report. REVIEW OF SYSTEMS: The following complete review of systems was negative, unless otherwise mentioned in the HPI or below: Constitutional: Weight loss or gain, ability to conduct usual activities. Sk in: Rash, itching. Eyes: Double vision, pain. ENT/Mouth: Nose bleeding, neck stiffness, pain, te nderness. Cardiovascular: Palpitations, dyspnea on exertion, orthopnea. Respiratory: Shortness of breath, wheezing, cough, hemoptysis, fever or night sweats. Gastrointestinal: Poor appetite, abdom inal pain, heartburn, nausea, vomiting, constipation, or diarrhea. Genitourinary: Urgency, frequenc y, dysuria, nocturia. Musculoskeletal: Pain, swelling. Neurologic/Psychiatric: Anxiety, depressio n. Allergy/Immunologic: Skin rash, bleeding tendency. Otherwise negative except as stated per HPI. PHYSICAL EXAMINATION: VITAL SIGNS: Currently, blood pressure 107/72, pulse 96, respiratory rate 20, temperature 99 degrees Fahrenheit, O2 saturation 100% on room air. GENERAL APPEARANCE: This is a 57-year-old -Greenlandic male, alert and oriented x3, pleasant, co nversant, in no acute distress. HEENT: Pupils are equal, round, and reactive to light and accommodation. Extraocular muscles are in tact. No scleral icterus. No conjunctival injection. Nares patent. OP is clear. Teeth in fair re pair. NECK: Supple. No cervical adenopathy, no thyromegaly, no carotid bruits, no JVD appreciated. No me ningeal signs appreciated. CHEST: Lungs are clear to auscultation bilaterally. CARDIOVASCULAR: S1, S2, without noted murmur, rub or gallop. ABDOMEN: Rounded, soft, nontender, nondistended. Bowel sounds are positive in all four quadrants. There is no hepatosplenomegaly. No abdominal bruits, no rebound or guarding appreciated. Midline rivera prapubic catheter in place without leakage or drainage. Mild scrotal edema noted. EXTREMITIES: No clubbing, cyanosis or asymmetric edema appreciated. Bilateral upper and lower extre mity contractures noted. Pulses palpable distally at the dorsalis pedis, posterior tibial, and popli teal arteries bilaterally. Capillary refill less than 2 seconds. NEUROLOGIC: Quadriplegic. Mild movement of the left upper extremity. Contractures of bilateral upp er and lower extremities. Nonambulatory status. PERTINENT LABORATORY AND X-RAY FINDINGS: Sodium 136, potassium 3.4, chloride 98, CO2 of 25, BUN 21, creatinine 0.80, glucose 119, lactic acid level 1.5, calcium 9.4, LFTs within normal limits. Albumin 3.7. CBC showed white blood cell count of 8.9, hemoglobin 13, hematocrit 37, platelet count 239 wit h 81% neutrophils. Urine culture dated 10/18/2017 showing greater than 100,000 colonies of gram nega tive rods. Portable chest x-ray dated 10/18/2017 showed no acute cardiopulmonary process. EKG dated 10/18/2017 by my interpretation shows sinus tachycardia with heart rates in the 110s. Normal R-wave progression noted in the precordial leads. Normal axis. No acute ST-T wave changes appreciated. ASSESSMENT AND PLAN: 1. Complicated urinary tract infection. The patient will be admitted to the medical floor. The pat ient with a chronic suprapubic catheter due to neurogenic bladder. Suprapubic catheter exchange in [facility] emergency department. We will continue symptomatic and supportive measures. Continue meropenem 2 grams IV q.8 hours. Add additional Rocephin 2 grams IV q.24 hours, pending final urine culture iden tification and sensitivities. Continue IV fluids with normal saline 100 mL per hour. 2. Quadriplegia with neurogenic bladder. See #1 above. Continue general turning protocol. 3. Decubitus ulcers. Decubitus ulcerations noted on skin exam present on admission. Continue gener al turning protocol. Pressure alleviating mattress. Consult Wound Care team for evaluation. 4. Hypokalemia. Mild. Continue potassium chloride supplementation and repeat potassium level in th e a.m. 5. Prophylaxis. Sequential compression devices while in bed. Pepcid 20 mg p.o. b.i.d. 6. Code status is FULL. Surrogate medical decision maker is the patient's mother.
--- NOTE | 2017-10-19 21:21 | CON ---
DATE OF CONSULTATION: 10/19/2017 REASON FOR CONSULTATION: 1. Urinary leakage around catheter. 2. Possible urosepsis. 3. History of recurrent urinary tract infection. HISTORY OF PRESENT ILLNESS: Mr. Gloria Del Troo is very pleasant 57-year-old -Azerbaijani male orig inally from [place] who had an unfortunate accident at age 31. He fell while jumping over a fenc e to his grandmother's house and broke his neck at the C2-C3 level. 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 Mr. Del Toro was previously under the care of Dr. Cali and recently has b een under the care of Dr. Curtis. I was consulted in Dr. Curtis's absence to evaluate and assess t he patient. Overnight, Mr. Del Toro presented to the emergency department by phone. I consulted with the emergency physician discussed acute management of his suprapubic tube which seemed to be function ing incorrectly. Patient had bladder irrigation and subsequent replacement of the SP tube and intrav esical installation of gentamicin per my recommendations. The patient seems to be doing well today a nd his new suprapubic catheter appears to be functioning correctly. PAST MEDICAL HISTORY: 1. 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 2. Muscular atrophy. 3. Neurogenic bowel. 4. Type 2 diabetes. 5. Chronic constipation. 6. History of orthostatic hypotension. 7. Gastroesophageal reflux disease. 8. Seizure disorder. PAST SURGICAL HISTORY: 1. C-spine cervical stabilization surgery. 2. Colonoscopic evaluations. 3. PEG tube placement. 4. Tracheostomy. 5. Suprapubic tube placement. FAMILY MEDICAL HISTORY: Noncontributory. SOCIAL HISTORY: The patient is and has family members living in [place]. He lives in the [facility] at present. He does not have a history of tobacco abuse cells, illicit drug abuse or alcohol consumption. The patient does have a history of use of an electric wheelchair. 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 ALLERGIES: No known drug allergies. CURRENT MEDICATIONS: 1. Hydralazine 10 mg slow IVP push for elevated blood pressure. 2. Sliding scale insulin using human lispro. 3. Meropenem 2 grams IV t.i.d. 4. Midodrine 10 mg p.o. t.i.d. 5. Zofran 4 mg p.o. q.6 hours p.r.n. for nausea. 6. Polyethylene glycol, MiraLax 17 grams p.o. b.i.d. scheduled. 7. Klor-Con 20 mEq p.o. twice daily. 8. Simethicone. 9. IV saline at 100 mL per hour. PHYSICAL EXAMINATION: VITAL SIGNS: Temperature is 99.2, pulse 77, respirations 18, O2 saturation on room air is 94%, blood pressure is 93/66. GENERAL: This is a quadriplegic -Azerbaijani male evaluated supine in his hospital bed. Patient 's gross examination shows a healed tracheostomy site. He is conversant and appears to be a very ple asant gentleman. LUNGS: Clear to auscultation bilaterally. CARDIAC: Regular rate and rhythm. ABDOMEN: Soft and he has had a PEG tube placed. GENITOURINARY: Phallus is without lesion. Urethra appears adequate. The patient reports urine pass ing per urethra. On the lower abdomen at the pubic symphysis, there is an indwelling suprapubic tube which is 20 [place]ayan in size, a red rubber type which is draining clear urine today. Digital rectal e xamination is performed and finds a prostate gland that palpates to about 25-30 grams. It is smooth, anodular, nontender. It has a muscular characteristic to it. The patient has sacral decubitus pads in place bilaterally on the back. There appears to be a fasciotomy performed on the right leg at so me point. EXTREMITIES: Bilateral lower extremities are paralyzed and the patient has spasticity to the lower e xtremities as well. LABORATORY AND X-RAY FINDINGS: White count 8900 with a minimal left shift of 81.4%. Hemoglobin is 1 3.0 with a hematocrit of 36.9. The patient's blood urea nitrogen is 21 with a creatinine of 0.80 ind icating relative dehydration. Glucose is elevated at 119. ASSESSMENT AND PLAN: 1. Suprapubic tube issues. The patient apparently was having urine leak about his suprapubic tube i nsertion site and this is likely due to small size of the suprapubic tube, not able to compensate for pressure associated with bladder spasms or simple movements. Larger diameter catheters would have l ess problems along these lines and I would recommend increasing the diameter of the suprapubic tube b y 2 Uruguayan per suprapubic tube change until 24 Uruguayan is achieved. 2. Recurrent urinary tract infection with suprapubic tube in place. The patient probably should und ergo cystoscopic evaluation at some point. If this has not already been performed in Dr. Curtis's o ffice, I would certainly recommend that in followup. The patient may have retained catheter or stone fragments from previous catheter since they are being changed infrequently in his senior living [facility]. 3. Frequency of catheter change. I would recommend the patient have his catheter change interval de creased to every 2 weeks from monthly changes as he seems to be failing infrequent changes with multi ple urine cultures positive for multiple potential pathogens over the last year or two. 4. General male health issues. Digital rectal examination not suggestive of prostate cancer. No re cent PSA available.
[2017-10-20] MEDS: Meropenem 2 GM in Sodium Chloride 0.9% 100 ML IVPB SCH ×3 (01:45→18:48)
[2017-10-20] MEDS: Sodium Chloride 0.9% 1,000 ML IV SCH (01:49)
[2017-10-20 04:50] LABS: Hemoglobin A1c 4.6 % (4.0-6.0)
[2017-10-20 04:57] LABS: Anion Gap 13 mmol/L (10-20); BUN (Urea Nitrogen) 17 mg/dL (8.4-25.7); Calc. Creatinine Clearance 126 mL/min (70-130); Calcium 8.5 mg/dL (7.8-10.44); Carbon Dioxide 22 mmol/L (22-29); Chloride 106 mmol/L (98-107); Estimated GFR-MDRD Greater than 90; Glucose 89 mg/dL (70-105); Potassium 3.2 mmol/L (3.5-5.1); Sodium 138 mmol/L (136-145)
[2017-10-20 05:10] LABS: Band 4 % (5-11); Eosinophils 4 % (0-10); Hemoglobin 10.9 g/dL (14.0-18.0); Hypochromia SLIGHT = 6-15 cells (100X) (0-5/hpf); Lymphocytes 18 % (21-51); MDiff Complete? YES; Mean Corpuscular HGB CONC 34.6 g/dL (32.0-36.0); Mean Corpuscular Hemoglobin 31.3 pg (27.0-31.0); Mean Corpuscular Volume 90.6 fL (78.0-98.0); Mean Platelet Volume 7.8 fL (7.4-10.4); Monocytes 10 % (0-10); Neutrophil 64 % (42-75); PLT Morphology Comment Appears Adequate; Platelet Count 135 thou/uL (130-400); RBC Distribution Width 13.5 % (11.5-14.5); Red Blood Cell (RBC) Count 3.49 mill/uL (4.70-6.10); White Blood Cell (WBC) Count 3.6 thou/uL (4.8-10.8)
[2017-10-20] MEDS: Simethicone Chewable 80 MG TAB PO SCH ×2 (08:58→20:01)
[2017-10-20] MEDS: Midodrine HCl 5 MG TAB PO SCH ×3 (08:59→20:01)
[2017-10-20] MEDS: Famotidine 20 MG TAB PO SCH ×2 (08:59→20:01)
[2017-10-20] MEDS: Docusate 100 MG CAP PO SCH ×2 (08:59→20:02)
[2017-10-20] MEDS: Baclofen 10 MG TAB PO SCH ×3 (08:59→20:01)
[2017-10-20] MEDS: Polyethylene Glycol 3350 17 GM Packet PO SCH ×2 (09:00→20:00)
--- NOTE | 2017-10-20 15:25 | PDOC.PN ---
- Subjective Encounter Start Date: 10/20/17 Encounter Start Time: 15:00 Subjective: f/u for complicated UTI due to indwelling SPT with Ucx showing GNR -: on Meropenem and Rocephin. Feels better today. Some coughing -: and IVF's d/c'd - Objective Resuscitation Status: Resuscitation Status FULL:Full Resuscitation MAR Reviewed: Yes Vital Signs & Weight: Vital Signs (12 hours) Temp Pulse Resp BP Pulse Ox 10/20/17 08:00 98.9 F 95 18 96 10/20/17 07:35 98.9 F 95 18 102/64 96 10/20/17 04:00 98.1 F 83 20 96/70 96 Weight Admit Weight 150 lb 1 oz Weight 150 lb 1 oz I&O: 10/19/17 10/20/17 10/21/17 06:59 06:59 06:59 Intake Total 3480 Output Total 2750 Balance 730 Result Diagrams: 10/20/17 03:35 10/20/17 03:35 Additional Labs: Accuchecks 10/20/17 10/20/17 10/19/17 11:11 04:13 19:03 POC Glucose 152 H 90 113 H 10/19/17 17:30 POC Glucose 95 Microbiology 10/19/17 00:07 Venous blood - Right Hand Blood Culture - Preliminary Specimen has been received and culture in progress. No Growth to date. 10/18/17 22:49 Venous blood - Right Arm Blood Culture - Preliminary Specimen has been received and culture in progress. No Growth to date. 10/18/17 22:24 Urine meza catheter Urine Culture - Preliminary Gram Negative [facility] Laboratory Tests 10/18/17 10/20/17 22:49 03:35 Potassium 3.4 L Hemoglobin A1c 4.6 Phys Exam - Physical Examination Constitutional: NAD alert, responsive HEENT: PERRLA, sclera anicteric, oral pharynx no lesions Neck: no nodes, no JVD, supple, full ROM coarse sounds bilat S1, S2 Cardiovascular: RRR, no significant murmur, no rub, gallop Gastrointestinal: soft, non-tender, no distention, positive bowel sounds contractures in all extremities Musculoskeletal: no edema, pulses present mild movements in UE's Skin: no rash, normal turgor, cap refill <2 seconds Deviation from normal: Suprapubic catheter in place Dx/Plan (1) Complicated UTI (urinary tract infection) Code(s): N39.0 - URINARY TRACT INFECTION, SITE NOT SPECIFIED Status: Acute Comment: GNR initially in Ucx, continue Meropenem and Rocephin pending final identification and sensititivities (2) Chronic suprapubic catheter Code(s): Z93.59 - OTHER CYSTOSTOMY STATUS Status: Chronic Comment: Exchanged for new catheter 10/19/17 (3) Chronic constipation Code(s): K59.09 - OTHER CONSTIPATION Status: Chronic Comment: Continue Colace, Miralax, Senna (4) Neurogenic bladder Code(s): N31.9 - NEUROMUSCULAR DYSFUNCTION OF BLADDER, UNSPECIFIED Status: Chronic Comment: SPT in place (5) Quadriplegia Code(s): G82.50 - QUADRIPLEGIA, UNSPECIFIED Status: Chronic (6) Hypokalemia Code(s): E87.6 - HYPOKALEMIA Status: Acute Comment: KCL 20meq BID, repeat K + level in am - Plan continue antibiotics, PT/OT, social media content manager, respiratory therapy, DVT proph w/ SCDs Stable overall -: Saline lock IVF's -: Lasix 20mg IV x 1 dose -: Continue Meropenem and Rocephin -: KCL replacement * AM lab: BMP, CBC
[2017-10-20] MEDS ORDERED: Furosemide 20 MG/2 ML VIAL SLOW IVP SCH (16:00)
[2017-10-20] MEDS: cefTRIAXone\\ROCEPHIN 2 GM in Sodium Chloride 0.9% 100 ML IVPB SCH (17:15)
[2017-10-21] MEDS: Meropenem 2 GM in Sodium Chloride 0.9% 100 ML IVPB SCH ×3 (02:26→17:32)
[2017-10-21 06:32] LABS: Mean Corpuscular HGB CONC 34.2 g/dL (32.0-36.0); Mean Corpuscular Hemoglobin 31.3 pg (27.0-31.0); Mean Corpuscular Volume 91.4 fL (78.0-98.0); Mean Platelet Volume 7.7 fL (7.4-10.4); Platelet Count 172 thou/uL (130-400); RBC Distribution Width 13.5 % (11.5-14.5); Red Blood Cell (RBC) Count 3.84 mill/uL (4.70-6.10); White Blood Cell (WBC) Count 4.5 thou/uL (4.8-10.8)
[2017-10-21 06:37] LABS: Band 3 % (5-11); Eosinophils 2 % (0-10); Lymphocytes 22 % (21-51); MDiff Complete? YES; Monocytes 7 % (0-10); Neutrophil 65 % (42-75); PLT Morphology Comment Appears Adequate
[2017-10-21 06:47] LABS: Anion Gap 13 mmol/L (10-20); BUN (Urea Nitrogen) 13 mg/dL (8.4-25.7); Calc. Creatinine Clearance 116 mL/min (70-130); Calcium 8.7 mg/dL (7.8-10.44); Carbon Dioxide 25 mmol/L (22-29); Chloride 100 mmol/L (98-107); Estimated GFR-MDRD Greater than 90; Glucose 80 mg/dL (70-105); Potassium 3.5 mmol/L (3.5-5.1); Sodium 134 mmol/L (136-145)
[2017-10-21] MEDS ORDERED: Furosemide 20 MG/2 ML VIAL SLOW IVP SCH (09:00)
[2017-10-21] MEDS: Midodrine HCl 5 MG TAB PO SCH ×3 (09:03→20:15)
[2017-10-21] MEDS: Docusate 100 MG CAP PO SCH ×2 (09:03→20:16)
[2017-10-21] MEDS: Simethicone Chewable 80 MG TAB PO SCH ×2 (09:03→20:15)
[2017-10-21] MEDS: Famotidine 20 MG TAB PO SCH ×2 (09:03→20:15)
[2017-10-21] MEDS: Baclofen 10 MG TAB PO SCH ×3 (09:03→20:15)
[2017-10-21] MEDS: Polyethylene Glycol 3350 17 GM Packet PO SCH ×2 (09:04→20:16)
--- NOTE | 2017-10-21 18:14 | PDOC.PN ---
- Subjective Encounter Start Date: 10/21/17 Encounter Start Time: 18:15 Subjective: f/u for complicated UTI with E. coli and Acinetobacter spp with multi- -: drug resistance. Currently on Meropenem and Rocephin. Feels better -: overall. - Objective Resuscitation Status: Resuscitation Status FULL:Full Resuscitation MAR Reviewed: Yes Vital Signs & Weight: Vital Signs (12 hours) Temp Pulse Resp BP Pulse Ox 10/21/17 16:14 99.2 F 86 18 107/72 93 L 10/21/17 10:58 98.5 F 91 18 105/74 100 10/21/17 08:00 98.0 F 83 16 100 10/21/17 07:16 98.0 F 83 16 114/78 100 Weight Admit Weight 150 lb 1 oz Weight 150 lb 1 oz I&O: 10/20/17 10/21/17 10/22/17 06:59 06:59 06:59 Intake Total 3480 1770 1000 Output Total 2750 3300 2550 Balance 730 -1530 -1550 Result Diagrams: 10/21/17 05:05 10/21/17 05:05 Additional Labs: Microbiology 10/18/17 22:24 Urine meza catheter Urine Culture - Final Escherichia coli Acinetobacter baumanniicomplex 10/19/17 00:07 Venous blood - Right Hand Blood Culture - Preliminary Specimen has been received and culture in progress. No Growth to date. 10/19/17 00:07 Venous blood - Right Hand Blood Culture - Preliminary NO GROWTH AT 48 HOURS 10/18/17 22:49 Venous blood - Right Arm Blood Culture - Preliminary Specimen has been received and culture in progress. No Growth to date. 10/18/17 22:49 Venous blood - Right Arm Blood Culture - Preliminary NO GROWTH AT 48 HOURS 10/18/17 22:24 Urine meza catheter Urine Culture - Preliminary Gram Negative [facility] Laboratory Tests 10/18/17 10/20/17 22:49 03:35 Potassium 3.4 L Hemoglobin A1c 4.6 Phys Exam - Physical Examination Constitutional: NAD HEENT: PERRLA, sclera anicteric, oral pharynx no lesions Neck: no nodes, no JVD, supple, full ROM Respiratory: no wheezing, no rales, no rhonchi, clear to auscultation bilateral S1, S2 Cardiovascular: RRR, no significant murmur, no rub, gallop Gastrointestinal: soft, non-tender, no distention, positive bowel sounds contractures in all extremities Psychiatric: A&O x 3 Skin: no rash, normal turgor, cap refill <2 seconds Dx/Plan (1) Complicated UTI (urinary tract infection) Code(s): N39.0 - URINARY TRACT INFECTION, SITE NOT SPECIFIED Status: Acute Comment: E. coli and Acinetobacter spp with multi-drug resistance, continue Meropenem and d/c Rocephin (2) Chronic suprapubic catheter Code(s): Z93.59 - OTHER CYSTOSTOMY STATUS Status: Chronic Comment: Exchanged for new catheter 10/19/17 (3) Chronic constipation Code(s): K59.09 - OTHER CONSTIPATION Status: Chronic Comment: Continue Colace, Miralax, Senna (4) Neurogenic bladder Code(s): N31.9 - NEUROMUSCULAR DYSFUNCTION OF BLADDER, UNSPECIFIED Status: Chronic Comment: SPT in place (5) Quadriplegia Code(s): G82.50 - QUADRIPLEGIA, UNSPECIFIED Status: Chronic (6) Hypokalemia Code(s): E87.6 - HYPOKALEMIA Status: Acute Comment: KCL 20meq BID, improved , continue KCL supplementation - Plan continue antibiotics, social service liaison, DVT proph w/SCDs Stable overall -: Continue Meropenem another 24h -: Transition to Bactrim after d/c Meropenem -: Bowel regimen due to chronic constipation -: D/C Rocephin * Change KCL 40meq daily * Likely back to NH in 24h
[2017-10-21] MEDS: cefTRIAXone\\ROCEPHIN 2 GM in Sodium Chloride 0.9% 100 ML IVPB SCH (19:08)
[2017-10-21] MEDS: Sodium Chloride 0.9% 1,000 ML IV SCH (23:37)
[2017-10-22] MEDS: Meropenem 2 GM in Sodium Chloride 0.9% 100 ML IVPB SCH ×2 (01:55→09:54)
[2017-10-22] MEDS: Midodrine HCl 5 MG TAB PO SCH ×2 (09:06→15:31)
[2017-10-22] MEDS: Docusate 100 MG CAP PO SCH (09:06)
[2017-10-22] MEDS: Baclofen 10 MG TAB PO SCH ×2 (09:06→15:31)
[2017-10-22] MEDS: Famotidine 20 MG TAB PO SCH (09:06)
[2017-10-22] MEDS: Polyethylene Glycol 3350 17 GM Packet PO SCH (09:07)
[2017-10-22] MEDS: Simethicone Chewable 80 MG TAB PO SCH (09:07)
--- NOTE | 2017-10-22 12:29 | DIS ---
DATE OF ADMISSION: 10/19/2017 DATE OF DISCHARGE: 10/22/2017 DISCHARGE DIAGNOSES: 1. Complicated urinary tract infection due to chronic suprapubic catheter. 2. Urinary tract infection with Escherichia coli and acinetobacter species with multidrug resistance pattern. 3. Chronic constipation. 4. Neurogenic bladder with suprapubic catheter. 5. Quadriplegia, chronic. 6. Hypokalemia, improved. CONSULTATIONS: Dr. Rodriguez with Urology Service. PERTINENT LABORATORY DATA AND X-RAY FINDINGS: Potassium ranged between 3.2-3.5, hemoglobin A1C 4.6. CBC showed a white blood cell count ranged between 3.6-8.9, hemoglobin ranged between 10.9-13.0. Ur ine culture dated 10/18/2017 showed greater than 100,000 colonies of E. coli with multiple drug resis tance and acinetobacter species baumannii complex multidrug resistance. Blood cultures x2 dated 10/07 showed no growth at 48 hours. Portable chest x-ray dated 10/18/2017 showed no acute cardiopul monary process. HOSPITAL COURSE: The patient was initially admitted after presenting with leaking suprapubic cathete r, which was chronically placed due to neurogenic bladder in the context of quadriplegia. The patien t underwent evaluation with subsequent exchange of current suprapubic catheter with purulence at the skin surface. The patient was diagnosed with a complicated urinary tract infection and placed on bro ad spectrum IV antibiotic therapy to include Rocephin and meropenem. Urine culture did confirm 2 org anisms including E. coli and acinetobacter species with multidrug resistant pattern. The patient lik murray a carrier and colonized with multidrug resistant organisms due to history of recurrent urinary tr act infections. The patient was evaluated by the Urology service with recommendations to exchange cu rrent suprapubic catheter to a larger caliber tube increasing to a maximum of 24 [place]ayan over the next 2-4 weeks. The patient was also recommended for more frequent catheter exchanges every 2 weeks, ins tead of every month. The patient did clinically stabilize with IV fluids, IV antibiotic therapy and general supportive care. I have examined the patient at the time of discharge and discussed followup instructions. The patient overall clinically stable verbalizing understanding and agreement with tony proctor plan. Patient is ready for discharge on 10/22/2017. DISCHARGE MEDICATIONS: 1. Macrobid 100 mg p.o. b.i.d. x5 days, stop on 10/27/2017. 2. Baclofen 20 mg p.o. t.i.d. 3. Colace 100 mg p.o. b.i.d. 4. Midodrine 10 mg p.o. t.i.d. 5. MiraLax 17 grams p.o. b.i.d. 6. Klor-Con 40 mEq p.o. daily. 7. Simethicone 80 mg p.o. b.i.d. p.r.n. FOLLOWUP: Patient will follow up with his primary care provider, Dr. Amirah Forbes at [facility]. CONDITION OF DISCHARGE: Fair. ACTIVITY: ad kelly. DIET: Regular, supplements, Ensure b.i.d. with meals. CODE STATUS: FULL. SPECIAL INSTRUCTIONS: Increase suprapubic catheter from 20 Uruguayan to 22 [place]ayan in the next 2 weeks f ollowed by a 24 [place]ruguayan catheter 2 weeks after replacement with a 22 [place]ayan. DISPOSITION: Discharged to [facility], 10/22/2017. Total time preparing and coordinating this discharge is 33 minutes.
[2017-10-22 16:30] VITALS: BP 143/93; TEMP 97.1
--- NOTE | 2017-10-24 13:24 | EKG ---
Test Reason : SEPSIS Blood Pressure : / mmHG Vent. Rate : 111 BPM Atrial Rate : 111 BPM P-R Int : 152 ms QRS Dur : 072 ms QT Int : 376 ms P-R-T Axes : 074 071 075 degrees QTc Int : 511 ms Sinus tachycardia Right atrial enlargement Minimal voltage criteria for LVH, may be normal variant Borderline ECG Confirmed by LUCIA MULLEN M.D. ([id number]), non linear editor LIANA TREVIZO ([id number]) on 10/24/2017 1:24:20 PM Referred By: Confirmed By:LUCIA MULLEN M.D.
== END 2017-10-22 16:23 | disposition home or self-care (01) | DRG 698 ==
LOC: ERS 21:07 → T4-B 10-19 02:32
PROVIDERS: ADMIT Internal Medicine; ATTEND Internal Medicine
PROC: 0T2BX0Z Change Drainage Device in Bladder, External Approach (ICD-10-PCS; principal; 2017-10-19)
DX: T83.518A Infection and inflammatory reaction due to other urinary catheter, initial encounter (principal); L89.313 Pressure ulcer of right buttock, stage 3; G82.50 Quadriplegia, unspecified; K59.2 Neurogenic bowel, not elsewhere classified; N99.511 Cystostomy infection; S14.102S Unspecified injury at C2 level of cervical spinal cord, sequela; N31.8 Other neuromuscular dysfunction of bladder; E87.6 Hypokalemia; L89.322 Pressure ulcer of left buttock, stage 2; L89.892 Pressure ulcer of other site, stage 2; B96.20 Unspecified Escherichia coli [E. coli] as the cause of diseases classified elsewhere; B96.89 Other specified bacterial agents as the cause of diseases classified elsewhere; Z16.24 Resistance to multiple antibiotics; K59.09 Other constipation; E11.9 Type 2 diabetes mellitus without complications; K21.9 Gastro-esophageal reflux disease without esophagitis; G40.909 Epilepsy, unspecified, not intractable, without status epilepticus
CPT/HCPCS: 36415; 36416; 71045; 80048; 80053; 81003; 81015; 83036; 83605; 85007; 85025; 85027; 87040; 87077; 87086; 87186; 93005; 96360; 96361; 96365; A4216; J0696; J1580; J1940; J2185; J7050

== ENCOUNTER 2018-03-14 06:43 | Observation (INO) | payer MEDICARE, MEDICAID ==
[2018-03-14 07:42] LABS: Bilirubin Negative (Negative); Blood, Urine Small (Negative); Clarity CLOUDY (Clear); Glucose, Urine (Dipstick) Negative (Negative); Leukocyte Moderate (Negative); Nitrite Positive (Negative); Protein, Urine (Dipstick) 30 mg/dL (Neg-Trace); Specific Gravity, Urine 1.011 (1.002-1.036); Urobilinogen 0.2 mg/dL (0.2-1.0); pH, Urine 6.5 (5.0-9.0)
[2018-03-14 07:43] LABS: Bacteria/HPF None Seen HPF (None Seen); Hyaline Casts/LPF 4-6 HYALINE CAST LPF (0-3 Hyaline); Pathc Cast-AUWi Flag 1.45 (0-2.49); Squamous Epithelial None Seen HPF (0-3); WBC/HPF 21-50 HPF (0-3)
[2018-03-14 07:48] LABS: Yeast-AUWi Flag 3137.7 (0-25.0)
[2018-03-14 07:55] LABS: Crystals/HPF 1+ CA OXALATE HPF (Negative); Yeast-All Forms 3+ HPF (None Seen)
[2018-03-14 08:31] LABS: #Eosinphils 0.2 thou/uL (0.0-0.7); #Lymphocytes 1.2 thou/uL (1.20-3.40); #Monocytes 0.8 thou/uL (0.11-0.59); %Eosinophils 3.6 % (0.0-10.0); %Lymphocytes 18.9 % (21.0-51.0); %Monocytes 12.8 % (0.0-10.0); %Neutrophils 64.7 % (42.0-75.0); Hemoglobin 11.9 g/dL (14.0-18.0); Mean Corpuscular HGB CONC 33.6 g/dL (32.0-36.0); Mean Corpuscular Hemoglobin 29.2 pg (27.0-31.0); Mean Corpuscular Volume 86.9 fL (78.0-98.0); Mean Platelet Volume 8.9 fL (7.4-10.4); Platelet Count 159 thou/uL (130-400); RBC Distribution Width 13.9 % (11.5-14.5); Red Blood Cell (RBC) Count 4.06 mill/uL (4.70-6.10); White Blood Cell (WBC) Count 6.3 thou/uL (4.8-10.8)
[2018-03-14 08:32] LABS: Platelet Morphology Comment Appears Adequate
--- NOTE | 2018-03-14 09:37 | RAD ---
CHEST 1 VIEW: Date: 03/14/18 HISTORY: Dyspnea. COMPARISON: 02/10/18. FINDINGS: Cardiac silhouette is magnified by projection. Pulmonary vasculature is upper limits of normal. Incre ased density now overlies the medial aspect of the right upper chest and likely the right medial lung base. Left lung is clear. No evidence of pneumothorax. IMPRESSION: New opacity at the medial aspect of the right upper, and possibly the right lower, lobes. Clinical co rrelation regarding right pneumonitis is required. Please consider upright PA and lateral views of chest when patient can undergo that exam. POS: MYRA
[2018-03-14 09:43] LABS: Albumin 3.7 g/dL (3.5-5.0); Chloride 102 mmol/L (98-107)
[2018-03-14 09:44] LABS: Potassium 4.9 mmol/L (3.5-5.1); Sodium 132 mmol/L (136-145)
[2018-03-14 09:45] LABS: Globulin 5.9 g/dL (2.4-3.5); Glucose 107 mg/dL (70-105); Protein, Total 9.6 g/dL (6.0-8.3)
[2018-03-14 09:46] LABS: Anion Gap 15 mmol/L (10-20); Carbon Dioxide 20 mmol/L (22-29)
[2018-03-14 09:47] LABS: Bilirubin, Total 0.4 mg/dL (0.2-1.2)
[2018-03-14 09:48] LABS: Alkaline Phosphatase 72 U/L (40-150); Calc. Creatinine Clearance 0 mL/min (70-130); Calcium 12.4 mg/dL (7.8-10.44); Estimated GFR-MDRD Greater than 90
[2018-03-14 09:49] LABS: BUN (Urea Nitrogen) 46 mg/dL (8.4-25.7)
[2018-03-14 09:50] LABS: AST (SGOT) 39 U/L (5-34)
[2018-03-14 09:51] LABS: ALT (SGPT) 53 U/L (8-55); Lipase 26 U/L (8-78)
--- NOTE | 2018-03-14 10:20 | CT ---
CT ABDOMEN AND PELVIS WITH IV CONTRAST: Date: 03/14/18 HISTORY: Abdominal pain. Weakness. COMPARISON: 02/12/18. FINDINGS: Mild atelectasis at the lung bases. Low density lesions scattered about the spleen are stable. Enlarg ed lymph nodes throughout the retroperitoneum are similar in appearance to the previous exam. Stomach is now decompressed. Suprapubic catheter decompresses the urinary bladder. Large soft tissue defect at the right buttocks is similar in appearance to the prior study. Large amount of stool distending the sigmoid colon and rectum has increased somewhat since the previo us exam. Circumferential wall thickening of the rectal wall given the degree of distention. The wall thickening extends the sigmoid colon and lower left colon as well. IMPRESSION: Worsening fecal impaction with stercoral proctitis. Circumferential wall thickening extends to the si gmoid colon. POS: MYRA
[2018-03-14] MEDS ORDERED: Sodium Chloride 0.9% 100 ML ONE (10:22)
[2018-03-14] MEDS ORDERED: cefTRIAXone\\ROCEPHIN 2 GM VIAL ONE (10:22)
[2018-03-14] MEDS ORDERED: Acetaminophen 325 MG TAB PO PRN (11:52)
[2018-03-14] MEDS ORDERED: Senokot S 8.6-50 MG TAB PO PRN (11:52)
--- NOTE | 2018-03-14 12:07 | PDOC.EVN ---
Event Note - Event Note Event Note: H&P dictated #[id number]
[2018-03-14 14:23] LABS: Troponin I 0.014 ng/mL (< 0.028)
[2018-03-14] MEDS ORDERED: Levofloxacin 500 mg/D5W 100 ml Premix Bag ONE (15:17)
[2018-03-14] MEDS: metroNIDAZOLE 500 MG in Premix Bag 1 BAG IVPB SCH ×2 (15:27→21:19)
[2018-03-14] MEDS: Sodium Chloride 0.9% 1,000 ML IV SCH ×2 (15:27→21:18)
[2018-03-14] MEDS ORDERED: Iopamidol 370 76% 100 ML VIAL ONE (17:12)
--- NOTE | 2018-03-14 18:31 | HP ---
CHIEF COMPLAINT: Abdominal pain and fevers. HISTORY OF PRESENT ILLNESS: This is a 57-year-old male, who states that he was having weakness and not feeling well, having some abdominal pain and fevers that he noted apparently 2 to 3 days ago. The patient states that he has had a history of cervical spine injury when he was climbing over a fence and has been paraplegic since then. The patient noted to have a suprapubic catheter in place as well. The patient does live in a longterm and has had multiple admissions in the past in the last 2 to 3 years due to complications of infection from the bladder as well as other problems. The patient currently states that he has no symptoms similar to when he has had bladder infections; however, he does have abdominal pain as noted earlier. The patient states that otherwise he has no other associated complaints or symptoms. No alleviating or aggravating factors. The patient is seen and examined in the ER. No family at bedside. All questions were answered. ALLERGIES: NO KNOWN DRUG ALLERGIES. 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 FAMILY HISTORY: Noncontributory. SOCIAL HISTORY: Nonsmoker and nondrinker. Resides at [facility]. MEDICATIONS: See MAY. PHYSICAL EXAMINATION: VITAL SIGNS: Blood pressure 105/88, respiratory rate of 18, temperature of 98, O2 saturation 100% on 2 L nasal cannula. GENERAL: The patient lying in bed, appears to be in mild discomfort. HEENT: Pupils equal, round, reactive to light and accommodation. Extraocular muscles intact. Oral cavity moist and pink. LUNGS: Clear to auscultation bilaterally. No respiratory distress. CARDIOVASCULAR: Regular rate and rhythm. S1 and S2. No murmurs, rubs, or gallops appreciated. ABDOMINAL: Positive bowel sounds. Soft, nontender. Mild discomfort in left lower quadrant on palpation, otherwise nontender. EXTREMITIES: 2+ peripheral pulses bilaterally. Trace edema lower extremities, arthritic hands. NEUROLOGIC: Cranial nerves 2 to 12 intact. Alert and oriented x3. No other issues. LABORATORY DATA: CBC within normal limits. BMP shows hypercalcemia 12.4, sodium of 132, otherwise normal. UA positive for nitrites, protein, and wbc's. Chest x-ray shows possible right lobe infiltrates. Abdominal CT scan done with contrast shows bad fecal impaction with proctitis, circumferential wall thickening extending into the sigmoid colon. ASSESSMENT: 1. Proctitis. 2. Urinary tract infection. 3. Paraplegia. 4. Hypertension. 5. Coronary artery disease. 6. Hypercalcemia. PLAN: 1. At this point in time, we will admit the patient to observation. Start dose of fluids. The patient receiving multivitamins at home, may have vitamin D toxicity causing hypercalcemia. 2. We will start Levaquin and Flagyl as well as for coverage of GI and pathology. 3. Consultations to GI to replace for disimpaction versus any other surgical intervention. 4. We will obtain lab work in a.m. 5. The patient wishes to remain full code. 6. We will also start the patient on heparin b.i.d. for DVT prophylaxis. 7. Start regular diet. 8. Blood cultures ordered and pending thus far negative. 9. The patient is afebrile. 10. Case and plan discussed with the patient at length. He understands and agreed to this plan. Job ID: [id number]
[2018-03-14] MEDS ORDERED: Prevnar 13-Val Conj/PF 0.5 ML SYRINGE IM ONE (21:00)
[2018-03-14] MEDS: Heparin 5,000 UNITS/ML VIAL SC SCH (21:17)
[2018-03-14] MEDS: levETIRAcetam 500 MG TAB PO SCH (21:17)
[2018-03-14] MEDS: Midodrine HCl 5 MG TAB PO SCH ×2 (21:19)
[2018-03-15 00:33] VITALS: BMI 19.8
[2018-03-15] MEDS: metroNIDAZOLE 500 MG in Premix Bag 1 BAG IVPB SCH ×2 (05:23→14:50)
[2018-03-15 06:14] LABS: #Eosinphils 0.2 thou/uL (0.0-0.7); #Lymphocytes 1.1 thou/uL (1.20-3.40); #Monocytes 0.7 thou/uL (0.11-0.59); %Basophils 0.6 % (0.0-1.0); %Eosinophils 3.6 % (0.0-10.0); %Lymphocytes 21.7 % (21.0-51.0); %Monocytes 13.7 % (0.0-10.0); %Neutrophils 60.5 % (42.0-75.0); Hemoglobin 11.1 g/dL (14.0-18.0); Mean Corpuscular HGB CONC 33.8 g/dL (32.0-36.0); Mean Corpuscular Hemoglobin 29.4 pg (27.0-31.0); Mean Corpuscular Volume 87.1 fL (78.0-98.0); Mean Platelet Volume 7.5 fL (7.4-10.4); Platelet Count 168 thou/uL (130-400); RBC Distribution Width 13.1 % (11.5-14.5); Red Blood Cell (RBC) Count 3.78 mill/uL (4.70-6.10)
[2018-03-15 06:25] LABS: Anion Gap 14 mmol/L (10-20); BUN (Urea Nitrogen) 44 mg/dL (8.4-25.7); Calc. Creatinine Clearance 67 mL/min (70-130); Calcium 10.9 mg/dL (7.8-10.44); Carbon Dioxide 21 mmol/L (22-29); Chloride 105 mmol/L (98-107); Estimated GFR-MDRD 81; Glucose 91 mg/dL (70-105); Potassium 4.3 mmol/L (3.5-5.1); Sodium 136 mmol/L (136-145)
[2018-03-15] MEDS: levETIRAcetam 500 MG TAB PO SCH ×2 (10:10→20:31)
[2018-03-15] MEDS: Heparin 5,000 UNITS/ML VIAL SC SCH ×2 (10:10→20:32)
[2018-03-15] MEDS: Midodrine HCl 5 MG TAB PO SCH ×3 (11:59→20:31)
--- NOTE | 2018-03-15 15:04 | PDOC.PN ---
- Subjective Encounter Start Date: 03/15/18 Encounter Start Time: 11:20 Pt seen for followup re; proctitis. denies chest pain or shortness of breath. had bowel movement. - Objective Resuscitation Status - Order Detail: 03/14/18 11:52 Resuscitation Status Routine Resuscitation Status: FULL: Full Resuscitation MAR Reviewed: Yes Vital Signs & Weight: Vital Signs (12 hours) Temp Pulse Resp BP BP Pulse Ox 03/15/18 12:55 98.4 F 100 17 138/92 H 100 03/15/18 08:15 97.8 F 94 16 138/69 98 03/15/18 03:43 97.6 F 87 20 114/56 L 99 Weight Admit Weight 142 lb Weight 142 lb I&O: 03/14/18 03/15/18 03/16/18 06:59 06:59 06:59 Intake Total 1100 2455 Output Total 1375 Balance 1100 1080 Result Diagrams: 03/16/18 05:40 03/16/18 05:40 EKG Reviewed by me: Yes (Tele: NSR) Phys Exam - Physical Examination Constitutional: NAD HEENT: moist MMs, sclera anicteric, oral pharynx no lesions, 2+ tonsils Neck: no nodes, no JVD, supple, full ROM Respiratory: clear to auscultation bilateral Cardiovascular: RRR, no rub S1, S2 Gastrointestinal: soft, non-tender, no distention, positive bowel sounds suprapubic catheter paraplegia Psychiatric: normal affect, A&O x 3 Dx/Plan (1) Proctitis Code(s): K62.89 - OTHER SPECIFIED DISEASES OF ANUS AND RECTUM Status: Acute Comment: Improving, pt had bowel movement. Corrently on cipro/metronidazole. (2) GERD (gastroesophageal reflux disease) Code(s): K21.9 - GASTRO-ESOPHAGEAL REFLUX DISEASE WITHOUT ESOPHAGITIS Status: Chronic Comment: stable (3) Quadriplegia Code(s): G82.50 - QUADRIPLEGIA, UNSPECIFIED Status: Chronic Comment: stable (4) Seizure disorder Code(s): G40.909 - EPILEPSY, UNSP, NOT INTRACTABLE, WITHOUT STATUS EPILEPTICUS Status: Chronic Comment: stable - Plan * . Review of Systems - Review of Systems Constitutional: negative: fever, chills, sweats, weakness, malaise Respiratory: negative: Cough, Shortness of Breath, SOB with Excertion, Pleuritic Pain, Wheezing Cardiovascular: negative: chest pain, palpitations, orthopnea, paroxysmal nocturnal dyspnea, edema, light headedness Gastrointestinal: Abdominal Pain, Constipation. negative: Nausea, Vomiting, Diarrhea, Melena, Hematochezia Genitourinary: negative: Dysuria, Frequency, Incontinence, Hematuria, Retention Skin: negative: Rash, Lesions, Lyle, Bruising - Medications/Allergies Allergies/Adverse Reactions: Allergies Allergy/AdvReac Type Severity Reaction Status Date / Time No Known Allergies Allergy Verified 03/14/18 16:37 Medications: Current Medications Acetaminophen (Tylenol) 650 mg PO Q4H PRN PRN Reason: Headache/Fever/Mild Pain (1-3) Albuterol/Ipratropium (Duoneb) 3 ml NEB [id number] PRN PRN Reason: SOB &/or Wheezing Last Admin: 03/14/18 20:45 Dose: 3 ml Aspirin (Aspirin Chewable) 81 mg PO DAILY [facility] Last Admin: 03/15/18 10:10 Dose: 81 mg Atorvastatin Calcium (Lipitor) 40 mg PO HS [facility] Heparin Sodium (Porcine) (Heparin) 5,000 units SC BID [facility] Last Admin: 03/15/18 10:10 Dose: 5,000 units Levofloxacin 500 mg/ Device 100 mls @ 100 mls/hr IVPB 1200 [facility] Last Admin: 03/15/18 13:28 Dose: 100 mls Metronidazole 500 mg/ Device 100 mls @ 100 mls/hr IVPB Q8HR [facility] Last Admin: 03/15/18 14:50 Dose: 100 mls Levetiracetam (Keppra) 500 mg PO BID [facility] Last Admin: 03/15/18 10:10 Dose: 500 mg Midodrine (Proamatine) 10 mg PO TID [facility] Last Admin: 03/15/18 11:59 Dose: Not Given Senna/Docusate Sodium (Senokot S) 2 tab PO BID PRN PRN Reason: Constipation Sodium Chloride (Flush - Normal Saline) 10 ml IVF Q12HR PRN PRN Reason: Saline Flush Last Admin: 03/15/18 13:36 Dose: 10 ml
[2018-03-15] MEDS: Lubiprostone 24 MCG CAP PO SCH (18:38)
[2018-03-15] MEDS: Polyethylene Glycol 3350 17 GM Packet PO SCH (20:31)
[2018-03-15] MEDS ORDERED: Atorvastatin Calcium 40 MG TAB PO SCH (21:00)
--- NOTE | 2018-03-16 05:29 | CON ---
DATE OF CONSULTATION: HISTORY OF PRESENT ILLNESS: The patient is a 57-year-old male, who was in his normal state of health until several days prior to admission when he developed some abdominal pain and had some fever. He has had long history of a cervical spine injury and has been paraplegic with chronic constipation issues as well. He has had no nausea, vomiting. No weight loss. He reports he does have intermittent bowel movements; he says that after a large bowel movement, he will have improvement in his abdominal pain. The patient was seen by GI back in September of 2017; at that time, lactulose was discontinued. The MiraLax was increased to twice daily. Previous CT from February 12 showed again distention and dilatation of the stomach and fecal material through the dilated colon. PAST MEDICAL HISTORY: Includes C-spine injury, history of B-cell lymphoma, neurogenic bladder and bowel, hypertension. PAST SURGICAL HISTORY: Includes C-spine surgery, previous colonoscopy in 2005 and 2015, EGD with PEG tube placement and subsequent removal; tracheostomy, subsequent closure. FAMILY HISTORY: Negative for GI or liver disease. MEDICATIONS: Include, 1. Senna 2 tabs p.o. at bedtime. 2. Simethicone 80 mg p.o. b.i.d. 3. Potassium chloride 40 mEq p.o. daily. 4. MiraLax 17 g p.o. b.i.d. 5. Midodrine 10 mg p.o. t.i.d. 6. Baclofen 20 mg p.o. t.i.d. 7. Docusate 100 mg p.o. b.i.d. 8. Keppra 500 mg p.o. b.i.d. 9. Aspirin 81 mg p.o. daily. 10. Lipitor 40 mg p.o. at bedtime. 11. Maxipime 1 g IV every 8 hours. ALLERGIES: NO KNOWN ALLERGIES. SOCIAL HISTORY: He is a long-term resident. REVIEW OF SYSTEMS: CONSTITUTIONAL: Positive for fever, chills. Negative for weight loss. EYES: No blurred vision or double vision. ENT: No sore throat or earaches. CARDIOVASCULAR: No chest pain or palpitation. PULMONARY: No shortness of breath, cough, or wheezing. GI: See above. : No hematuria or dysuria. MUSCULOSKELETAL: Positive for sequelae of his C-spine injury. RECTAL: Showed a large amount of soft stool in the vault. No fecal impaction is appreciated. LABORATORY DATA: Shows white blood cell count of 5.0, hemoglobin of 11.1, hematocrit of 32.9. Chemistry shows sodium 132, CO2 of 20, BUN 46, glucose 107, calcium 12.4, AST 39, total protein 9.6. Urinalysis showed leukocyte esterase moderate, 21 to 50 wbc's. ASSESSMENT: 1. Chronic constipation - this may be contributing to his abdominal pain. 2. C-spine injury. 3. Abnormal CT scan of the left colon and rectum - consistent with stercoral changes. RECOMMENDATIONS: 1. Discontinue Mylicon. 2. Could add some Linzess to the patient's bowel regimen. 3. Continue Senokot. 4. Stable from GI standpoint. Job ID: [id number]
[2018-03-16 06:15] LABS: #Eosinphils 0.2 thou/uL (0.0-0.7); #Lymphocytes 0.7 thou/uL (1.20-3.40); #Monocytes 0.5 thou/uL (0.11-0.59); #Neutrophils 2.4 thou/uL (1.40-6.50); %Basophils 0.5 % (0.0-1.0); %Eosinophils 4.4 % (0.0-10.0); %Lymphocytes 18.3 % (21.0-51.0); %Monocytes 13.3 % (0.0-10.0); %Neutrophils 63.5 % (42.0-75.0); Hemoglobin 10.3 g/dL (14.0-18.0); Mean Corpuscular HGB CONC 33.7 g/dL (32.0-36.0); Mean Corpuscular Hemoglobin 29.4 pg (27.0-31.0); Mean Corpuscular Volume 87.4 fL (78.0-98.0); Mean Platelet Volume 7.5 fL (7.4-10.4); Platelet Count 150 thou/uL (130-400); RBC Distribution Width 13.2 % (11.5-14.5); White Blood Cell (WBC) Count 3.8 thou/uL (4.8-10.8)
[2018-03-16 06:37] LABS: Anion Gap 12 mmol/L (10-20); BUN (Urea Nitrogen) 38 mg/dL (8.4-25.7); Calc. Creatinine Clearance 82 mL/min (70-130); Carbon Dioxide 23 mmol/L (22-29); Chloride 102 mmol/L (98-107); Estimated GFR-MDRD Greater than 90; Glucose 102 mg/dL (70-105); Potassium 4.6 mmol/L (3.5-5.1); Sodium 132 mmol/L (136-145)
[2018-03-16 08:01] VITALS: BP 94/56; TEMP 98.2
[2018-03-16] MEDS: levETIRAcetam 500 MG TAB PO SCH (09:59)
[2018-03-16] MEDS: Heparin 5,000 UNITS/ML VIAL SC SCH (09:59)
[2018-03-16] MEDS: Midodrine HCl 5 MG TAB PO SCH ×2 (10:00→14:58)
[2018-03-16] MEDS: Polyethylene Glycol 3350 17 GM Packet PO SCH (10:00)
[2018-03-16] MEDS: Lubiprostone 24 MCG CAP PO SCH (10:00)
--- NOTE | 2018-03-17 03:56 | DIS ---
DATE OF ADMISSION: 03/14/2018 DATE OF DISCHARGE: 03/16/2018 PRIMARY CARE PHYSICIAN: Amirah Forbes MD DISCHARGE DIAGNOSES: 1. Abdominal pain. 2. Chronic constipation. 3. Stercoral proctitis. CONDITION OF PATIENT ON THE DAY OF DISCHARGE: Stable. I assessed Mr. Del Toro on the day of discharge. He denies any chest pain or shortness of breath. Constipation has resolved. Vital signs are stable. S1 and S2 are heard, regular. Lungs are clear to auscultation bilaterally. DISCHARGE MEDICATIONS: 1. Arginine/glutamine/calcium 1 packet 2 times a day. 2. Aspirin 81 mg daily. 3. Lipitor 40 mg at bedtime. 4. Baclofen 20 mg 3 times a day. 5. Cefepime 1 g intravenously every 8 hours, which appears to be the patient's pre-admission medication, indication was not clear, most likely secondary to pseudomonal urinary tract infection in February 2018. This will need to be reassessed by primary care provider. 6. Keppra 500 mg 2 times a day. 7. Midodrine 10 mg 3 times a day. 8. Tylenol 650 mg every 4 hours as needed. 9. Amitiza 24 mcg 2 times a day. 10. MiraLAX 17 g 2 times a day. 11. Potassium chloride 40 mEq daily. 12. Senokot 2 tablets two times a day as needed. CONSULTATION DURING THIS HOSPITALIZATION: Gastroenterology, Dr. Harish Boss. HOSPITAL COURSE: Mr. Del Toro is a pleasant 57-year-old gentleman, who was admitted to [facility] on observation status on March 14, 2018, for abdominal pain and chronic constipation. He was seen by Gastroenterology Service. He had bowel movement. He has been started on Amitiza. Senokot is being continued. Simethicone has been discontinued. One out of two blood cultures were positive for Staphylococcus epidermidis, most likely contaminant. Many thanks for allowing me to participate in your patient's care. Please feel free to contact me with any questions or concerns. DISCHARGE DESTINATION: [facility], from where patient was admitted to the hospital. Job ID: [id number]
--- NOTE | 2018-03-20 22:08 | EKG ---
Test Reason : ER INDICATION Blood Pressure : / mmHG Vent. Rate : 077 BPM Atrial Rate : 077 BPM P-R Int : 156 ms QRS Dur : 090 ms QT Int : 366 ms P-R-T Axes : 079 079 078 degrees QTc Int : 414 ms Normal sinus rhythm Normal ECG No changes from 14-MAR-18 07:13 Confirmed by REBA SHEIKH DO ([id number]), photograph editor RALF HERRERA ([id number]) on 03/20/2018 10:08:30 PM Referred By: EBEN Confirmed By:REBA SHEIKH DO
== END 2018-03-16 16:40 ==
LOC: ERS 06:43 → ERHOLD 10:00 → 2NO 18:17 → T4-A 03-15 22:46
PROVIDERS: ADMIT Internal Medicine; ATTEND Internal Medicine
DX: K52.89 Other specified noninfective gastroenteritis and colitis (principal); K59.09 Other constipation; G82.50 Quadriplegia, unspecified; S14.109S Unspecified injury at unspecified level of cervical spinal cord, sequela; I10 Essential (primary) hypertension; I25.10 Atherosclerotic heart disease of native coronary artery without angina pectoris; E83.52 Hypercalcemia; N39.0 Urinary tract infection, site not specified; G40.909 Epilepsy, unspecified, not intractable, without status epilepticus; Z79.82 Long term (current) use of aspirin; Z79.899 Other long term (current) drug therapy
CPT/HCPCS: 71045; 74177; 80048 ×2; 80053; 83605; 83690; 83880; 84484 ×2; 85025 ×3; 87040; 87149 ×2; 90670; 90686; 93005; 94640; 96365; 96366 ×2; 96367 ×2; 97139 ×2; 99285; G0008; G0009; G0378 ×2; 36415; 81003; 81015; 90471; J0696; J1642; J1644; J1956; J7050; J7620